=== PATIENT | female | born 1940 | race Caucasian/White ===

== ENCOUNTER 2020-08-03 14:18 | Emergency (ER) | payer MEDICARE, SELFPAY ==
[2020-08-03 14:26] VITALS: BP 146/65; BP 150/74; PULSE 76; PULSE 77; RESP 16; TEMP 36.9; O2SAT 94; O2SAT 96; BMI 24.7
[2020-08-03 14:49] VITALS: BP 146/65; PULSE 77; RESP 16; TEMP 36.9; O2SAT 96
--- NOTE | 2020-08-03 16:38 | ECG_ITS ---
Test Reason : CHOKING Blood Pressure : / mmHG Vent. Rate : 076 BPM Atrial Rate : 076 BPM P-R Int : 184 ms QRS Dur : 112 ms QT Int : 392 ms P-R-T Axes : 019 -30 085 degrees QTc Int : 441 ms Normal sinus rhythm Left axis deviation Left ventricular hypertrophy with repolarization abnormality Abnormal ECG When compared with ECG of 25-FEB-2018 15:30, No significant changes seen Referred By: Alfred Parker Electronically Signed By:Slim Ray
--- NOTE | 2020-08-03 16:38 | XR_ITS ---
EXAMINATION: XR CHEST CLINICAL INFORMATION: Choking. COMPARISON: Chest x-ray 09/25/2019. CT chest 08/20/2018 TECHNIQUE: Frontal portable view of the chest was obtained. 4:49 PM FINDINGS: Trachea is displaced to the right with a mass in the superior left mediastinum consistent with the known enlarged substernal left lobe of thyroid. This is unchanged since prior studies. Heart size is normal. The cardiac and mediastinal contours are normal. There is no acute abnormality. No pulmonary vascular congestion. No focal consolidation, no pleural effusion or pneumothorax. XR/XR chest 1V IMPRESSION: 1. No acute abnormality of the chest. 2. Known large left lobe of thyroid extending substernal
--- NOTE | 2020-08-03 16:40 | ED_ITS ---
HPI - General Adult General Chief complaint: General Medical Stated complaint: CHOKED ON LUNCH,LUNGS CLEAR,COUGH Time Seen by Provider: 08/03/20 16:37 Source: patient Mode of arrival: ambulatory Limitations: no limitations History of Present Illness HPI narrative: Patient with no known history of coronary artery disease history of dysphagia in the past but never had a choking episode history chronic leukemia came here because of choking episode after while eating she was talking on the phone and start coughing after 30 minutes cough she felt better. At this time she is drinking p.o. liquids no chest pain no diaphoresis no abdominal pain few years ago she had endoscopy which showed narrow esophagus but she never had significant dysphagia Onset (ago): hour(s) Related Data Home Medications Medication Instructions Recorded Confirmed Lactobacillus rhamnosus GG 1 cap PO BID 05/23/20 05/23/20 [Culturelle] acetaminophen 500 mg PO Q6H PRN 05/23/20 07/31/20 ascorbic acid (vitamin C) [Vitamin 750 mg PO DAILY 05/23/20 07/31/20 C] calcium 500 mg PO DAILY 05/23/20 07/31/20 cyclosporine modified 1 cap PO DAILY 05/23/20 05/23/20 hydrochlorothiazide 25 mg PO QAM 05/23/20 07/31/20 ibuprofen 400 mg PO TID PRN 05/23/20 05/23/20 losartan 100 mg PO DAILY 05/23/20 07/31/20 metoprolol succinate 25 mg PO DAILY 05/23/20 07/31/20 multivitamin 1 tab PO DAILY 05/23/20 05/23/20 prednisone 10 mg PO DAILY 05/23/20 05/23/20 Previous Rx's Medication Instructions Recorded clotrimazole 1 applic TOPICAL TID #60 g 05/23/20 alprazolam 0.25 mg PO BEDTIME PRN #30 tab 06/30/20 tramadol 50 mg tablet 50 mg PO BID PRN #32 tab MDD 3 07/26/20 times per day Allergies Allergy/AdvReac Type Severity Reaction Status Date / Time Sulfa (Sulfonamide Allergy Intermediate RASH,HAS Verified 07/31/20 10:23 Antibiotics) HAD [SULFA (SULFONAMIDE RECENTLY ANTIBIOTICS)] WITHOUT REACTION Review of Systems Review of Systems: Constitutional : No Weight loss, No Fever, No Chills ENT/Mouth : No sore throat, No Rhinorrhea Eyes: No Eye Pain, No Swelling Cardiovascular : No Chest Pain, no palpitations Respiratory : ++ Cough, No Sputum, no shortness of breath Gastrointestinal : no Nausea, No Vomiting, No Diarrhea, No abdominal Pain, no black stools Genitourinary : No Dysuria, No Urinary Frequency Musculoskeletal : No joint pain, No Myalgias, No Joint Swelling Skin : No Skin Lesions, No rash Neuro : No Weakness, No Numbness, No Dizziness, No Headache Psych : No Anxiety/Panic, No Depression Heme/Lymph: No Bruising, No Lymphadenopathy Endocrine : No Polyuria, No Polydipsia All other systems reviewed and are negative [facility] Past Medical History Medical History Ankle fracture, left Basal cell carcinoma Cancer Goiter Hypertension Knee pain, left Oral mucosal lesion Osteoarthritis Surgical History History of appendectomy History of bilateral knee replacement Social History Social History Alcohol intake: never Smoking Status: Never smoker Second Hand Smoke Exposure: No Use of substances other than those prescribed or required for medical reasons: No Advance Directives: No Advance Directives Information Provided: Yes Physical Exam Vital Signs: Vital Signs: Last Vital Signs Temp 97.9 F 08/03/20 16:46 Pulse 82 08/03/20 16:46 Resp 16 08/03/20 16:46 BP 168/69 H 08/03/20 16:46 Pulse Ox 97 08/03/20 16:46 Body Mass Index 24.7 Appearance: Alert. Oriented X3. No acute distress. Eyes: Pupils equal, round and reactive to light. ENT: Pharynx normal. No stridor Neck: Normal inspection. Neck supple. CVS: Normal heart rate and rhythm. Pulses normal. Respiratory: No respiratory distress. Breath sounds normal. Abdomen: Soft and nontender. Bowel sounds are present, no mass palpable, no CVA tenderness Skin: Skin warm and dry. Normal skin color. Normal skin turgor. Extremities: No lower extremity edema. Neuro: Oriented X 3. No motor deficit. No sensory deficit. Medical Decision Making MDM Narrative Medical decision making narrative: Patient came with choking episode after eating and talking same time chest x-ray negative EKG with not any ischemia waiting for the troponin unlikely cardiac origin as the symptoms started after eating, will discharge her home Lab Data Lab results reviewed: Yes I reviewed the patient's lab results. Result diagrams: 08/03/20 16:53 08/03/20 16:53 Labs: Lab Results 08/03/20 08/03/20 08/03/20 Range/Units 16:53 16:53 16:53 WBC 7.8 (4.8-10.8) X10*3/uL RBC 2.91 L (4.20-5.50) X10*6/uL Hgb 10.5 L (12.0-16.0) g/dl Hct 31.6 L (37-47) % MCV 108.6 H (80-98) fL MCH 36.1 H (27.0-33.0) pg MCHC 33.2 (31.0-35.0) g/dl RDW 13.1 (11.0-16.0) % Plt Count 271 (160-400) X10*3/uL MPV 11.1 (9.4-12.3) fL Immature Gran % (Auto) 0.6 H (0.0-0.4) % Neut % (Auto) 74.7 H (45-73) % Lymph % (Auto) 18.6 L (20-40) % Ashley % (Auto) 5.8 (2-11) % Eos % (Auto) 0.0 (0-4) % Baso % (Auto) 0.3 (0-2) % Lymph # (Auto) 1.4 (1.2-4.9) X10*3/uL Ashley # (Auto) 0.5 (0.1-1.2) X10*3/uL Eos # (Auto) 0.0 (0.0-0.4) X10*3/uL Baso # (Auto) 0.0 (0.0-0.2) X10*3/uL Abs Immat Gran (auto) 0.05 H (0.00-0.03) X10*3/uL Absolute Neuts (auto) 5.8 (2.0-8.3) X10*3/uL Absolute Nucleated RBC 0.000 (0.0-0.012) X10*3/uL Nucleated RBC % (auto) 0.0 (0.0-0.2) /100WBC Sodium 143 (135-145) mmol/L Potassium 4.2 (3.3-5.1) mmol/l Chloride 103 (96-108) mmol/L Carbon Dioxide 31 H (22-29) mmol/L Anion Gap 13 (12-20) BUN 28 H (9-16) mg/dL Creatinine 0.83 (0.5-1.4) mg/dL Estim Creat Clear Calc 45.0 Estimated GFR > 60 Random Glucose 108 (60-115) mg/dL Calcium 9.4 (8.4-10.2) mg/dL Troponin I High Sens 8.8 (<3.5-17.0) ng/L ECG Data Attestation: I personally reviewed and interpreted this ECG as follows: Interpretation: Normal sinus rhythm left axis deviation LVH no acute ST T wave changes impression no acute ischemia Discharge Plan Discharge Clinical Impression: Dysphagia Qualifiers: Dysphagia type: oropharyngeal phase Qualified Code(s): R13.12 - Dysphagia, oropharyngeal phase Patient Disposition: Home, Self-Care Instructions: Dysphagia (ED) Additional Instructions: Has small meals with water/pureed meal. Follow-up with technology applications consultant for further evaluation and care. Report to the ER if any chest pain Prescriptions: No Action alprazolam 0.25 mg Tablet 0.25 mg PO BEDTIME PRN (Reason: Insomnia) Qty: 30 RF: 0 tramadol 50 mg tablet 50 mg PO BID MDD 3 times per day PRN (Reason: severe pain (scale score 7-10)) Qty: 32 RF: 0 clotrimazole 1 % Cream 1 applic TOPICAL TID Qty: 60 RF: 1 ascorbic acid (vitamin C) [Vitamin C] 500 mg Tablet 750 mg PO DAILY RF: 0 cyclosporine modified 100 mg capsule 1 cap PO DAILY RF: 0 multivitamin Tablet 1 tab PO DAILY RF: 0 prednisone 10 mg Tablet 10 mg PO DAILY RF: 0 ibuprofen 400 mg Tablet 400 mg PO TID PRN (Reason: Pain) RF: 0 hydrochlorothiazide 25 mg Tablet 25 mg PO QAM RF: 0 metoprolol succinate 25 mg Tablet Extended Release 24 Hr 25 mg PO DAILY RF: 0 Culturelle 10 billion cell Capsule 1 cap PO BID RF: 0 losartan 100 mg Tablet 100 mg PO DAILY RF: 0 acetaminophen 500 mg Capsule 500 mg PO Q6H PRN (Reason: Pain) RF: 0 calcium 500 mg Tablet 500 mg PO DAILY RF: 0 Referrals: Raegan Greenwood MD [Physician] - 1 week
[2020-08-03 16:46] VITALS: BP 168/69; PULSE 82; RESP 16; TEMP 36.6; O2SAT 97
[2020-08-03 17:01] LABS: Basophils Percent Auto 0.3 % (0-2); Hematocrit 31.6 % (37-47); Hemoglobin 10.5 g/dl (12.0-16.0); Imm Gran Abs Auto 0.05 X10*3/uL (0.00-0.03); Imm Gran Pct Auto 0.6 % (0.0-0.4); Lymphocytes Absolute Auto 1.4 X10*3/uL (1.2-4.9); Lymphocytes Percent Auto 18.6 % (20-40); Mean Corpuscular HGB Conc 33.2 g/dl (31.0-35.0); Mean Corpuscular Hemoglobin 36.1 pg (27.0-33.0); Mean Corpuscular Volume 108.6 fL (80-98); Mean Platelet Volume 11.1 fL (9.4-12.3); Monocytes Absolute Auto 0.5 X10*3/uL (0.1-1.2); Monocytes Percent Auto 5.8 % (2-11); Neutrophils Absolute Auto 5.8 X10*3/uL (2.0-8.3); Neutrophils Percent Auto 74.7 % (45-73); Platelet Count 271 X10*3/uL (160-400); Red Blood Count 2.91 X10*6/uL (4.20-5.50); Red Cell Distribution Width 13.1 % (11.0-16.0); White Blood Count 7.8 X10*3/uL (4.8-10.8)
[2020-08-03 17:02] LABS: MANUAL DIFF FLAG NO
[2020-08-03 17:23] LABS: Anion Gap 13 (12-20); Blood Urea Nitrogen 28 mg/dL (9-16); Calcium 9.4 mg/dL (8.4-10.2); Carbon Dioxide 31 mmol/L (22-29); Chloride 103 mmol/L (96-108); Estimated Glomerular Filt Rate > 60; Glucose Random 108 mg/dL (60-115); Potassium 4.2 mmol/l (3.3-5.1); Sodium 143 mmol/L (135-145)
[2020-08-03 17:33] LABS: Troponin-I High Sensitivity 8.8 ng/L (<3.5-17.0)
== END 2020-08-03 18:00 | disposition home or self-care (01) ==
PROVIDERS: Emergency Provider Internal Medicine; PCP Internal Medicine
DX: R13.12 Dysphagia, oropharyngeal phase (principal); I10 Essential (primary) hypertension
CPT/HCPCS: 36415; 71045; 80048; 84484; 85025; 93005; 99283; 99284

== ENCOUNTER 2020-08-04 06:10 | Day surgery (SDC) | payer MEDICARE, SELFPAY ==
[2020-07-31 10:20] VITALS: BMI 18.7
[2020-08-03 10:25] VITALS: BMI 18.7
--- NOTE | 2020-08-03 11:49 | HO.ANESPROP2 ---
Documented by User: Martina Freitas 08/03/20 11:51 HPI - Anesthesia Eval Consult details Narrative: 80yo F for Genicular Nerve Stimulation Implant s/p periph nerve stim trial with MAC 02/2020 [facility] Past Medical History Medical History Ankle fracture, left Basal cell carcinoma Cancer Goiter Hypertension Knee pain, left Oral mucosal lesion Osteoarthritis Surgical History Surgical History History of appendectomy History of bilateral knee replacement Social History Social History Alcohol intake: never Smoking Status: Never smoker Second Hand Smoke Exposure: No Use of substances other than those prescribed or required for medical reasons: No Advance Directives: No Advance Directives Information Provided: No Advance Directives on File: No Meds Allergies Allergy/AdvReac Type Severity Reaction Status Date / Time Sulfa (Sulfonamide Allergy Intermediate RASH,HAS Verified 07/31/20 10:23 Antibiotics) HAD [SULFA (SULFONAMIDE RECENTLY ANTIBIOTICS)] WITHOUT REACTION Home Medications Medication Instructions Recorded Confirmed Type Lactobacillus rhamnosus GG 1 cap PO BID 05/23/20 05/23/20 History [Culturelle] acetaminophen 500 mg PO Q6H PRN 05/23/20 07/31/20 History ascorbic acid (vitamin C) [Vitamin 750 mg PO DAILY 05/23/20 07/31/20 History C] calcium 500 mg PO DAILY 05/23/20 07/31/20 History cyclosporine modified 1 cap PO DAILY 05/23/20 05/23/20 History hydrochlorothiazide 25 mg PO QAM 05/23/20 07/31/20 History ibuprofen 400 mg PO TID PRN 05/23/20 05/23/20 History losartan 100 mg PO DAILY 05/23/20 07/31/20 History metoprolol succinate 25 mg PO DAILY 05/23/20 07/31/20 History multivitamin 1 tab PO DAILY 05/23/20 05/23/20 History prednisone 10 mg PO DAILY 05/23/20 05/23/20 History Exam Exam Date and Time: August 03, 2020 1149 Height,Weight and Vital Signs: Height 5 ft 6 in Weight 52.617 kg Pertinent Lab Results Pertinent Lab Results: Laboratory Tests 05/23/20 05/23/20 13:09 13:09 WBC 6.0 Hgb 10.7 L Hct 31.6 L Plt Count 258 Sodium 141 Potassium 3.9 Chloride 103 Carbon Dioxide 29 BUN 38 H Creatinine 0.80 Assessment and Plan Assessment Anesthesia Assessment: Chart Reviewed Documented by User: Alexus Meadows 08/04/20 07:57 [facility] Past Medical History Medical History Ankle fracture, left Basal cell carcinoma Cancer Goiter Hypertension Knee pain, left Oral mucosal lesion Osteoarthritis Surgical History Surgical History History of appendectomy History of bilateral knee replacement Social History Social History Alcohol intake: never Smoking Status: Never smoker Second Hand Smoke Exposure: No Use of substances other than those prescribed or required for medical reasons: No Advance Directives: No Advance Directives Information Provided: No Advance Directives on File: No Meds Allergies Allergy/AdvReac Type Severity Reaction Status Date / Time Sulfa (Sulfonamide Allergy Intermediate RASH,HAS Verified 07/31/20 10:23 Antibiotics) HAD [SULFA (SULFONAMIDE RECENTLY ANTIBIOTICS)] WITHOUT REACTION Home Medications Medication Instructions Recorded Confirmed Type Lactobacillus rhamnosus GG 1 cap PO BID 05/23/20 05/23/20 History [Culturelle] acetaminophen 500 mg PO Q6H PRN 05/23/20 07/31/20 History ascorbic acid (vitamin C) [Vitamin 750 mg PO DAILY 05/23/20 07/31/20 History C] calcium 500 mg PO DAILY 05/23/20 07/31/20 History cyclosporine modified 1 cap PO DAILY 05/23/20 05/23/20 History hydrochlorothiazide 25 mg PO QAM 05/23/20 07/31/20 History ibuprofen 400 mg PO TID PRN 05/23/20 05/23/20 History losartan 100 mg PO DAILY 05/23/20 07/31/20 History metoprolol succinate 25 mg PO DAILY 05/23/20 07/31/20 History multivitamin 1 tab PO DAILY 05/23/20 05/23/20 History prednisone 10 mg PO DAILY 05/23/20 05/23/20 History Exam Airway Mallampati Class: II TM Dist: >3cm Neck ROM: Limited Loose/Missing/Broken Teeth: No Heart: RRR Lungs: CTA Assessment and Plan Assessment Anesthesia Assessment: Anesthesia Plan Discussed and Chart Reviewed Final Anesthetic Review NPO: Yes ASA Class: II Final Preanesthetic Review: Meds/Allgs Chart Reviewed, Consent Obtained/Reviewed and Anes Risks/Benef Reviewed Patient Risk: Low Procedure Risk: Low Anesthetic Plan Anesthetic Plan: MAC: Disposition: Standard PACU
[2020-08-04 06:42] VITALS: BP 135/53; PULSE 73; RESP 16; TEMP 37.6; O2SAT 95
[2020-08-04] MEDS: Lactated Ringers 1,000 ML 100 ML IVCONT (06:54)
--- NOTE | 2020-08-04 07:06 | FL_ITS ---
EXAMINATION: XR FLUOROSCOPY WITH IMAGES CLINICAL INFORMATION: Geniculate nerve stimulation implant COMPARISON: None. TECHNIQUE: Fluoroscopy performed by Dr. Joiner. Fluoroscopy time: 0.6 minutes DAP: 0.8 mGycm2 Images: 3 FINDINGS: Fluoroscopy guidance for left knee geniculate nerve stimulation. FL/FL guidance in OR IMPRESSION: Fluoroscopy guidance for left knee geniculate nerve stimulation.
--- NOTE | 2020-08-04 07:20 | P.HPSUR_ITS ---
Pre-Procedural Eval Section A The patient is an INPATIENT: No The History & Physical has been completed within 30 days and I have reviewed it.: Yes Section B Chief Complaint: Chronic Pain Syndrome,Status Post TKR Details of Present Illness: knee pain Relevant Family History (Specify if Yes): No Relevant Social History: None Present Medications: see Short Stay Collaborative assessment Medical History: No relevant PMH History of Previous Operations: Relevant previous surgery/procedure and date(s) (s/p TKR) Allergies: Allergies Allergy/AdvReac Type Severity Reaction Status Date / Time Sulfa (Sulfonamide Allergy Intermediate RASH,HAS Verified 07/31/20 10:23 Antibiotics) HAD [SULFA (SULFONAMIDE RECENTLY ANTIBIOTICS)] WITHOUT REACTION Review of Systems Sugical H&P ROS: Negative: Constitution, Cardiovascular, Respiratory, Neurological, Psychiatric, Hem-Onc, Allergic/Immunologic, Gastrointestinal, Genitourinary, Musculoskeletal, Integumentary, Endocrine and Eye s/Ears/Nose/Throat Exam Surgical H&P Exam: Normal: HEENT, Normal: Heart, Normal: Lungs, Normal: Extremities, Normal: Abdomen, Normal: Skin and Normal: Neurological Plan Diagnosis/Plan: Unchanged I have reviewed the history and physical and performed a pertinent physical examination on my patient. No changes have occurred unless specified.
[2020-08-04 09:15] VITALS: BP 155/70; PULSE 79; RESP 12; TEMP 37.4; O2SAT 98
--- NOTE | 2020-08-04 09:21 | PM.OP ---
Brief Operative Note Date of Service: 08/04/20 Pre-op diagnosis: left knee pain, s/p TKR left, left knee osteoarthritis. Post-op diagnosis: same Procedure: implant Stimwave infrapatellar saphenous left peripheral nerve stimulator. Implants: stimwave stimulation wire. Surgeon: Fausto Joiner MD Anesthesia: MAC Estimated blood loss (mL): 15 Pathology: none sent Condition: stable Disposition: PACU
[2020-08-04 09:29] VITALS: BP 160/74; PULSE 79; RESP 16; O2SAT 96
[2020-08-04 09:45] VITALS: BP 157/73; PULSE 76; RESP 16; O2SAT 96
--- NOTE | 2020-08-04 10:18 | P.OP_ITS ---
Operative Note Operative Note Date of Service: 08/04/20 Narrative: Name of the procedure: Implantation of peripheral nerve stimulator infrapatellar saphenous position left lower extremity. Indication status post total knee replacement, chronic intractable left knee pain. The patient was identified and informed consent was obtained patient's left lower extremity was marked and patient was taking to the operating room and positioned supine on the operating table. [employer] monitors were applied and patient was sedated. Patient received 2 g of cefazolin approximately 30 minutes before the procedure. Time-out was performed delineating correct site side a and name in the of the patient. Also risks of fires were discussed in antibiotic administered was mentioned. Local anesthetics were mentioned. Left lower extremity was prepped with ChloraPrep and draped with the extremity draped using 1 curran in addition to fluoroscopy target nerve was identified and in try site tunneling path and pocket are identified and marked. System components were removed from the train placed on the sterile field. The distal tip of the electrode a raise placed on the skin at the target nerve and khoa on the skin is made with a sterile skin marker at the location on the 1st marker band to identify the skin try side. Local anesthetic is infiltrated subcutaneously at the introducer and try side. An initial introducer past is also identified with local anesthetic. Eleven blade scalpel was used to make small incision to facilitate the skin and try of the 13 gauge blunt tipped introducer. The introducers in then advanced to the target location using tiny amounts of local anesthetic infiltrated is needed for patient comfort avoiding as much as possible the use of local anesthetic at the nerve itself. The progress of the introducer can be followed by landmark and fluoroscopy and ultrasound. Once the introducer is in the position the introducer stylet is removed and the 4 contact electrode array with tines is advanced to the target the nerve with position confirmed by fluoroscopy on lateral and AP view. The steering stylet is removed and replaced with copper stimulation wire. The consumer relations specialist wire is mated to the electrode array by advancing the consumer relations specialist until it reaches the distal end of the electrode array with approximately 2 cm extending from the end of proximal portion of the electrode array. In an area distinct from the initial extra later insertion site approximately 10 cm from electrode array incision location a location acceptable for subcutaneous pocket to internalize the consumer relations specialist is identified. Local anesthetic is injected subcutaneously through the pocket side. Once the pocket site is anesthetize 11 blade scalpel used to incise the skin and subcutaneous tissue to create 1.5 in incision. Using blunt dissection subcutaneous pocket large enough to fit consumer relations specialist is created. Electrocautery is used to obtain hemostasis. After hemostasis is obtained original introducer stylet was advanced to as it tunnel conduit from the consumer relations specialist pocket location to the original needle electrode array in try side. The proximal says tip of the electrode array and consumer relations specialist are then advanced a retrograde through the introducer into the created subcutaneous consumer relations specialist pocket. After the Touhy needles were removed knots are tied and these stimulator proximal to the 2nd marking band in order to avoid spent entrance of fluid or tissue into the lumen and for the permanent meeting of the electrode array and consumer relations specialist. The remaining consumer relations specialist is coiled into 3 cm diameter well secured with 2.0 silk sutures intact securely into subcutaneous consumer relations specialist pocket. The [place] use sutured to the fascia. Once the devices sutured securely to the subcutaneous consumer relations specialist pocket the pocket is irrigated and hemostasis is confirmed and then the deeper tissues of the incisions are closed with subcutaneous 2.0 Vicryl sutures and skin closed with interrupted 2.0 silk sutures. The antenna in its sterile bag is brought back to the field to confirm stimulation. The site is covered with Bioclusive dressing and wrapped with the slight pressure wrap. Bacitracin ointment was applied to the sutures lines.
--- NOTE | 2020-08-04 13:51 | HO.POSTANES ---
Post Anesthesia Evaluation Post Anesthesia Evaluation Vital Signs: Vital Signs Temp Pulse Resp BP Pulse Ox 08/04/20 09:45 76 16 157/73 H 96 08/04/20 09:29 79 16 160/74 H 96 08/04/20 09:15 99.3 F 79 12 155/70 H 98 08/04/20 06:42 99.7 F 73 16 135/53 L 95 Anesthesia: Monitored Mental Status: Awake Pain Control: Satisfactory Nausea/Vomiting: None Hydration: Adequate Anesthesia-Related Issues: No Anes. Related Issues
== END 2020-08-04 11:02 | disposition home or self-care (01) ==
PROVIDERS: PCP Internal Medicine; Visit Provider Anesthesiology
PROC: (CPT 64575; principal; 2020-08-04 07:30)
DX: G89.4 Chronic pain syndrome (principal); Z96.652 Presence of left artificial knee joint; M17.12 Unilateral primary osteoarthritis, left knee; Z88.2 Allergy status to sulfonamides; I10 Essential (primary) hypertension
CPT/HCPCS: 64575; 64590; C1816; J0690; J1100; J2250; J2405; J3010; J3370

== ENCOUNTER → 2020-08-10 11:04 | Outpatient (BNVA) | payer MEDICARE, SELFPAY | PROVIDERS: PCP Internal Medicine; Referring Provider Internal Medicine; Visit Provider Anesthesiology | DX: M17.12 Unilateral primary osteoarthritis, left knee (principal); C91.Z0 Other lymphoid leukemia not having achieved remission | CPT/HCPCS: 99212 ==

== ENCOUNTER → 2020-08-17 10:37 | Outpatient (BNVA) | payer MEDICARE, SELFPAY | PROVIDERS: PCP Internal Medicine; Referring Provider Internal Medicine; Visit Provider Anesthesiology | DX: M17.12 Unilateral primary osteoarthritis, left knee (principal); C91.Z0 Other lymphoid leukemia not having achieved remission | CPT/HCPCS: 99212 ==

== ENCOUNTER 2021-02-12 11:00 | Outpatient (RCR) | payer MEDICARE, SELFPAY ==
[2020-05-23 13:16] LABS: MANUAL DIFF FLAG NO
[2020-05-23 13:18] VITALS: BP 189/84; PULSE 76; RESP 18; TEMP 36.5; O2SAT 95
[2020-05-23 13:23] LABS: Basophils Percent Auto 0.3 % (0-2); Hematocrit 31.6 % (37-47); Hemoglobin 10.7 g/dl (12.0-16.0); Imm Gran Abs Auto 0.08 X10*3/uL (0.00-0.03); Imm Gran Pct Auto 1.3 % (0.0-0.4); Lymphocytes Absolute Auto 1.1 X10*3/uL (1.2-4.9); Lymphocytes Percent Auto 18.6 % (20-40); Mean Corpuscular HGB Conc 33.9 g/dl (31.0-35.0); Mean Corpuscular Hemoglobin 36.5 pg (27.0-33.0); Mean Corpuscular Volume 107.8 fL (80-98); Mean Platelet Volume 11.6 fL (9.4-12.3); Monocytes Absolute Auto 0.3 X10*3/uL (0.1-1.2); Monocytes Percent Auto 4.4 % (2-11); Neutrophils Absolute Auto 4.5 X10*3/uL (2.0-8.3); Neutrophils Percent Auto 75.4 % (45-73); Platelet Count 258 X10*3/uL (160-400); Red Blood Count 2.93 X10*6/uL (4.20-5.50); Red Cell Distribution Width 12.1 % (11.0-16.0)
[2020-05-23 13:27] VITALS: BMI 26.4
[2020-05-23 13:43] LABS: Alanine Aminotransferase 40 U/L (0-31); Albumin Level 4.2 g/dL (3.5-5.0); Alkaline Phosphatase 70 U/L (39-117); Anion Gap 13 (12-20); Aspartate Amino Transferase 27 U/L (5-31); Bilirubin Total 0.7 mg/dL (0.0-1.0); Blood Urea Nitrogen 38 mg/dL (9-16); Calcium 9.3 mg/dL (8.4-10.2); Carbon Dioxide 29 mmol/L (22-29); Chloride 103 mmol/L (96-108); Estimated Glomerular Filt Rate > 60; Glucose Random 134 mg/dL (60-115); Potassium 3.9 mmol/l (3.3-5.1); Sodium 141 mmol/L (135-145)
[2020-05-23 14:12] VITALS: BP 172/72
--- NOTE | 2020-05-23 15:26 | PM.HEMONCPN ---
Medical Summary - Medical Summary Chief complaint: Follow-up Medical Summary: DIAGNOSIS: 1. T-Cell Large granular Lymphocytic Lymphoma. Normocytic to microcytic anemia. Managed by Dr. Stack for myelodysplastic syndrome until June 2018. Diagnosed with macrocytic anemia in 2016. Bone marrow biopsy performed May 2017 showed active trilineage hematopoiesis with a few hypolobated megakaryocytes raising possibility of early myelodysplastic syndrome. Flow cytometry showed no evidence of clonal lymphoid expansion. Chromosome analysis revealed 46XX. 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 Serum erythropoietin level in May 2018 was 625.8. Ferritin 1385 in June 2018. Repeat Bone marrow biopsy performed 07/30/18 showed mildly hypercellular, myeloid dominant marrow with reduced erythroid precursors and dyspoietic maturation in megakaryocytes, increased iron stores. Probable myelodysplastic syndrome. FISH panel negative for deletions of IQ, 7Q and 20 q. Negative for monosomy of chromosome 5 and 7 and trisomy of chromosome 7. Normal pattern of hybridization. Flow cytometry and cytogenetics Showed no atypical flow cytometric findings, and normal female karyotype 46XX. Flow cytometry for PNH was negative. 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 This compresses trachea significantly to right and compresses left brachiocephalic vein and SVC. TSH, free T4 normal. 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 Multiple lymphoid aggregates composed mainly of T cells with inverted CD4 :CD8 ratio by flow cytometry. Diagnostic consideration is thus T-large granular lymphocytic leukemia. Morphologic findings do not suggest myelodysplastic syndrome. She was initially tried on Cytoxan with prednisone about 2-3 months, this did not help. She was on methotrexate 10 mg per meter square weekly from September 2018 to 11/19/2018. She did not tolerate the medication, developed significant diarrhea. She did achieve benefit for 3-4 months with it. THERAPY: 1. CYTOXAN. 2. Switched to MTX, September 2018 3, cyclosporin June 2019 Interval History Interval history: Patient is here in follow-up. She is doing fairly well overall. She continues to have pain in her left knee which limits her ambulation. She has gained some weight, her appetite is very good. Her blood pressure was noted to be high today but she denied any symptoms such as headache, chest pain, dizziness or shortness of breath. She is taking cyclosporin 1 tablet daily. She is still on prednisone 15 mg daily. Her visiting nurse noticed red spot on her right buttock cheek. It is not irritated, painful, slightly itchy ever since she came to know if that it was there. She denies any fever, chills, or recent infections. Review of Systems - Constitutional Reports as per HPI, Reports no additional constitutional complaints - Cardiovascular Reports no additional cardiovascular complaints - Respiratory Reports no additional respiratory complaints - Gastrointestinal Reports no additional gastrointestinal complaints PMFSH Medical History: Medical History (Last Updated 05/23/20 @ 15:30 by Sharee Bowles MD) Ankle fracture, left Basal cell carcinoma Goiter Hypertension Oral mucosal lesion Osteoarthritis Surgical History: Surgical History (Last Updated 05/23/20 @ 15:30 by Sharee Bowles MD) History of appendectomy History of bilateral knee replacement Smoking status: Never smoker Alcohol intake frequency: does not drink Previous occupational history: Work for [employer] Screenings - ECOG Performance Status ECOG Performance Status: 2 Home Medications and Allergies Home Medications Medication Instructions Recorded Confirmed Type Lactobacillus rhamnosus GG 1 cap PO BID 05/23/20 05/23/20 History [Culturelle] acetaminophen 500 mg PO Q6H PRN 05/23/20 05/23/20 History alprazolam 1 tab PO BEDTIME 05/23/20 05/23/20 History ascorbic acid (vitamin C) [Vitamin 750 mg PO DAILY 05/23/20 05/23/20 History C] calcium 500 mg PO DAILY 05/23/20 05/23/20 History cyclosporine modified 1 cap PO DAILY 05/23/20 05/23/20 History hydrochlorothiazide 25 mg PO QAM 05/23/20 05/23/20 History ibuprofen 400 mg PO TID PRN 05/23/20 05/23/20 History losartan 100 mg PO DAILY 05/23/20 05/23/20 History metoprolol succinate 25 mg PO DAILY 05/23/20 05/23/20 History multivitamin 1 tab PO DAILY 05/23/20 05/23/20 History oxycodone 5 mg PO Q4H PRN 05/23/20 05/23/20 History prednisone 10 mg PO DAILY 05/23/20 05/23/20 History tramadol 50 mg PO QID PRN 05/23/20 05/23/20 History Allergies Allergy/AdvReac Type Severity Reaction Status Date / Time Sulfa (Sulfonamide Allergy Intermediate RASH,HAS Unverified 04/13/20 16:39 Antibiotics) HAD [SULFA (SULFONAMIDE RECENTLY ANTIBIOTICS)] WITHOUT REACTION sulfa Allergy Unknown Uncoded 03/30/20 00:00 Exam Vital signs: Vital Signs Temp 97.7 F 05/23/20 13:18 Pulse 76 05/23/20 13:18 Resp 18 05/23/20 13:18 BP 172/72 H 05/23/20 14:12 Pulse Ox 95 05/23/20 13:18 Intake & Output 05/22/20 05/23/20 05/23/20 18:59 06:59 18:59 Other: Weight 65.5 kg Weight 65.5 kg Body Mass Index 26.4 - Constitutional Present: no acute distress - Routine HEENT Exam Head: Present: normal inspection Eye: Present: EOMI - Routine Neck Exam Absent: lymphadenopathy - Routine Respiratory Exam Present: CTAB - Routine Cardiovascular Exam Cardiovascular: Present: RRR, S1, S2 - Routine Abdominal Exam Present: normal bowel sounds, soft Data - Labs CBC & Chem 7: 05/23/20 13:09 05/23/20 13:09 Labs: Laboratory Results - last 24 hr 05/23/20 05/23/20 13:09 13:09 WBC 6.0 RBC 2.93 L Hgb 10.7 L Hct 31.6 L MCV 107.8 H MCH 36.5 H MCHC 33.9 RDW 12.1 Plt Count 258 MPV 11.6 Immature Gran % (Auto) 1.3 H Neut % (Auto) 75.4 H Lymph % (Auto) 18.6 L Walker % (Auto) 4.4 Eos % (Auto) 0.0 Baso % (Auto) 0.3 Lymph # (Auto) 1.1 L Walker # (Auto) 0.3 Eos # (Auto) 0.0 Baso # (Auto) 0.0 Abs Immat Gran (auto) 0.08 H Absolute Neuts (auto) 4.5 Absolute Nucleated RBC 0.000 Nucleated RBC % (auto) 0.0 Sodium 141 Potassium 3.9 Chloride 103 Carbon Dioxide 29 Anion Gap 13 BUN 38 H Creatinine 0.80 Estim Creat Clear Calc 49.0 Estimated GFR > 60 Random Glucose 134 H Calcium 9.3 Total Bilirubin 0.7 AST 27 ALT 40 H Alkaline Phosphatase 70 Total Protein 6.0 L Albumin 4.2 Progress Note: A/P (1) Large granular lymphocytic leukemia Status: Chronic Assessment and plan: 1. This is an 79-year-old woman with T-cell large granular lymphocytic leukemia diagnosed in August 2018. Peripheral blood flow cytometry for T-cell receptor gene rearrangement was positive.(08/31/18) On cyclosporin 5 mg/kilo (200mg) administered b.i.d. since June 2019. Goal therapeutic level would be 200-400 NG/ML. She is now on prednisone 15 mg every day. Dose of cyclosporin has been decreased to 200 mg once a day. She has not required a blood transfusion since early July. Her blood counts, anemia has improved. I have asked her to cut back prednisone to 10 mg once a day. 2. Tongue lesion. This has been present for many years, biopsies were negative for malignancy. She responded to steroids, prednisone. 3. Elevated blood pressure readings. I have asked her to follow up with her PCP. This could also be related to chronic prednisone use and weight gain. 4. Tinea corporis on the right buttock cheek. Cotrimazole 1% cream b.i.d. has been prescribed. Follow-up in 3 months. - Time Spent With Patient Total time spent is greater than 50% in coordination of care (as documented) at patient's floor/unit and/or counseling patient: 25 - 35 minutes
[2020-08-23 14:06] LABS: MANUAL DIFF FLAG NO
[2020-08-23 14:14] LABS: Basophils Percent Auto 0.5 % (0-2); Eosinophils Percent Auto 0.5 % (0-4); Hematocrit 31.3 % (37-47); Hemoglobin 10.5 g/dl (12.0-16.0); Imm Gran Abs Auto 0.03 X10*3/uL (0.00-0.03); Imm Gran Pct Auto 0.4 % (0.0-0.4); Lymphocytes Absolute Auto 2.8 X10*3/uL (1.2-4.9); Lymphocytes Percent Auto 36.7 % (20-40); Mean Corpuscular HGB Conc 33.5 g/dl (31.0-35.0); Mean Corpuscular Hemoglobin 36.6 pg (27.0-33.0); Mean Corpuscular Volume 109.1 fL (80-98); Mean Platelet Volume 11.4 fL (9.4-12.3); Monocytes Absolute Auto 0.6 X10*3/uL (0.1-1.2); Monocytes Percent Auto 8.4 % (2-11); Neutrophils Percent Auto 53.5 % (45-73); Platelet Count 260 X10*3/uL (160-400); Red Blood Count 2.87 X10*6/uL (4.20-5.50); Red Cell Distribution Width 12.3 % (11.0-16.0); White Blood Count 7.5 X10*3/uL (4.8-10.8)
--- NOTE | 2020-08-23 14:30 | P.PNHO_ITS ---
Medical Summary - Medical Summary Date of Service: 08/23/20 Chief complaint: Follow up Medical Summary: DIAGNOSIS: 1. T-Cell Large granular Lymphocytic Lymphoma. Normocytic to microcytic anemia. Managed by Dr. Stack for myelodysplastic syndrome until June 2018. Diagnosed with macrocytic anemia in 2016. Bone marrow biopsy performed May 2017 showed active trilineage hematopoiesis with a few hypolobated megakaryocytes raising possibility of early myelodysplastic syndrome. Flow cytometry showed no evidence of clonal lymphoid expansion. Chromosome analysis revealed 46XX. 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 Serum erythropoietin level in May 2018 was 625.8. Ferritin 1385 in June 2018. Repeat Bone marrow biopsy performed 07/30/18 showed mildly hypercellular, myeloid dominant marrow with reduced erythroid precursors and dyspoietic maturation in megakaryocytes, increased iron stores. Probable myelodysplastic syndrome. FISH panel negative for deletions of IQ, 7Q and 20 q. Negative for monosomy of chromosome 5 and 7 and trisomy of chromosome 7. Normal pattern of hybridization. Flow cytometry and cytogenetics Showed no atypical flow cytometric findings, and normal female karyotype 46XX. Flow cytometry for PNH was negative. 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 This compresses trachea significantly to right and compresses left brachiocephalic vein and SVC. TSH, free T4 normal. 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 Multiple lymphoid aggregates composed mainly of T cells with inverted CD4 :CD8 ratio by flow cytometry. Diagnostic consideration is thus T-large granular lymphocytic leukemia. Morphologic findings do not suggest myelodysplastic syndrome. She was initially tried on Cytoxan with prednisone about 2-3 months, this did not help. She was on methotrexate 10 mg per meter square weekly from September 2018 to 11/19/2018. She did not tolerate the medication, developed significant diarrhea. She did achieve benefit for 3-4 months with it. THERAPY: 1. CYTOXAN. 2. Switched to MTX, September 2018 3, cyclosporin June 2019 Interval History Interval history: Patient is here in follow-up. She is doing okay but has chronic left knee pain. Unfortunately she has had several operations through the pain clinic but none of this has helped. She does not have any further appointments at the pain clinic. She is requesting pain medication as she has not seen her PCP in several months. She is in the process of getting a new physician. She was on ibuprofen previously which cause some stomach irritation and did not help much. She was on tramadol and that did not help either. She briefly was on oxycodone and that helped, she would like a refill on this medication. She denies fever, chills, nausea, chest pain or shortness of breath. No abdominal discomfort or reflux symptoms. No hematochezia or melena. She remai ns on 10 mg prednisone and cyclosporin as prescribed. Review of Systems - Constitutional Reports as per HPI, Reports no additional constitutional complaints - Cardiovascular Reports no additional cardiovascular complaints - Respiratory Reports no additional respiratory complaints - Gastrointestinal Reports no additional gastrointestinal complaints - Integumentary/Breasts Skin/Breast: Reports no additional skin complaints - Neurologic Reports no additional neurologic complaints [facility] Medical History: Medical History (Last Updated 08/10/20 @ 12:00 by Fausto Joiner MD) Ankle fracture, left Basal cell carcinoma Cancer Goiter Hypertension Knee pain, left Oral mucosal lesion Osteoarthritis Osteoarthritis of left knee Surgical History: Surgical History (Last Reviewed 08/04/20 @ 07:31 by Alexus Meadows) History of appendectomy History of bilateral knee replacement Social History: Social History (Last Reviewed 08/04/20 @ 07:31 by Alexus Meadows) Alcohol History: Alcohol intake: never Alcohol History Details: Alcohol intake frequency: does not drink Tobacco History: Smoking Status: Never smoker Second Hand Smoke Exposure: No Smoking status: Never smoker Home Medications and Allergies Home Medications Medication Instructions Recorded Confirmed Type Lactobacillus rhamnosus GG 1 cap PO BID 05/23/20 08/23/20 History [Culturelle] acetaminophen 500 mg PO Q6H PRN 05/23/20 08/23/20 History ascorbic acid (vitamin C) [Vitamin 750 mg PO DAILY 05/23/20 08/23/20 History C] calcium 500 mg PO DAILY 05/23/20 08/23/20 History cyclosporine modified 1 cap PO DAILY 05/23/20 08/23/20 History hydrochlorothiazide 25 mg PO QAM 05/23/20 08/23/20 History ibuprofen 400 mg PO TID PRN 05/23/20 08/23/20 History losartan 100 mg PO DAILY 05/23/20 08/23/20 History metoprolol succinate 25 mg PO DAILY 05/23/20 08/23/20 History multivitamin 1 tab PO DAILY 05/23/20 08/23/20 History prednisone 10 mg PO DAILY 05/23/20 08/23/20 History amlodipine 1 tab PO DAILY 08/23/20 08/23/20 History Allergies Allergy/AdvReac Type Severity Reaction Status Date / Time Sulfa (Sulfonamide Allergy Intermediate RASH,HAS Verified 07/31/20 10:23 Antibiotics) HAD [SULFA (SULFONAMIDE RECENTLY ANTIBIOTICS)] WITHOUT REACTION Exam Vital signs: Vital Signs Temp 97.7 F 05/23/20 13:18 Pulse 76 05/23/20 13:18 Resp 18 05/23/20 13:18 BP 172/72 H 05/23/20 14:12 Pulse Ox 95 05/23/20 13:18 Weight 65.5 kg Body Mass Index 26.4 - Constitutional Present: no acute distress - Routine HEENT Exam Head: Present: normal inspection - Routine Neck Exam Absent: lymphadenopathy - Routine Respiratory Exam Present: CTAB - Routine Cardiovascular Exam Cardiovascular: Present: RRR, S1, S2 - Routine Abdominal Exam Present: normal bowel sounds, soft Data - Labs CBC & Chem 7: 08/23/20 14:00 08/23/20 14:00 Labs: 05/23/20 13:09 Complete Blood Count Auto Diff Routine Comprehensive Met. Panel Routine 08/23/20 14:00 Complete Blood Count Auto Diff Routine Laboratory Last Values WBC 7.5 X10*3/uL (4.8-10.8) 08/23/20 14:00 RBC 2.87 X10*6/uL (4.20-5.50) L 08/23/20 14:00 Hgb 10.5 g/dl (12.0-16.0) L 08/23/20 14:00 Hct 31.3 % (37-47) L 08/23/20 14:00 MCV 109.1 fL (80-98) H 08/23/20 14:00 MCH 36.6 pg (27.0-33.0) H 08/23/20 14:00 MCHC 33.5 g/dl (31.0-35.0) 08/23/20 14:00 RDW 12.3 % (11.0-16.0) 08/23/20 14:00 Plt Count 260 X10*3/uL (160-400) 08/23/20 14:00 MPV 11.4 fL (9.4-12.3) 08/23/20 14:00 Immature Gran % (Auto) 0.4 % (0.0-0.4) 08/23/20 14:00 Neut % (Auto) 53.5 % (45-73) 08/23/20 14:00 Lymph % (Auto) 36.7 % (20-40) 08/23/20 14:00 [place] % (Auto) 8.4 % (2-11) 08/23/20 14:00 Eos % (Auto) 0.5 % (0-4) 08/23/20 14:00 Baso % (Auto) 0.5 % (0-2) 08/23/20 14:00 Lymph # (Auto) 2.8 X10*3/uL (1.2-4.9) 08/23/20 14:00 [place] # (Auto) 0.6 X10*3/uL (0.1-1.2) 08/23/20 14:00 Eos # (Auto) 0.0 X10*3/uL (0.0-0.4) 08/23/20 14:00 Baso # (Auto) 0.0 X10*3/uL (0.0-0.2) 08/23/20 14:00 Abs Immat Gran (auto) 0.03 X10*3/uL (0.00-0.03) 08/23/20 14:00 Absolute Neuts (auto) 4.0 X10*3/uL (2.0-8.3) 08/23/20 14:00 Absolute Nucleated RBC 0.000 X10*3/uL (0.0-0.012) 08/23/20 14:00 Nucleated RBC % (auto) 0.0 /100WBC (0.0-0.2) 08/23/20 14:00 Sodium 141 mmol/L (135-145) 05/23/20 13:09 Potassium 3.9 mmol/l (3.3-5.1) 05/23/20 13:09 Chloride 103 mmol/L (96-108) 05/23/20 13:09 Carbon Dioxide 29 mmol/L (22-29) 05/23/20 13:09 Anion Gap 13 (12-20) 05/23/20 13:09 BUN 38 mg/dL (9-16) H 05/23/20 13:09 Creatinine 0.80 mg/dL (0.5-1.4) 05/23/20 13:09 Estim Creat Clear Calc 49.0 05/23/20 13:09 Estimated GFR > 60 05/23/20 13:09 Random Glucose 134 mg/dL (60-115) H 05/23/20 13:09 Calcium 9.3 mg/dL (8.4-10.2) 05/23/20 13:09 Total Bilirubin 0.7 mg/dL (0.0-1.0) 05/23/20 13:09 AST 27 U/L (5-31) 05/23/20 13:09 ALT 40 U/L (0-31) H 05/23/20 13:09 Alkaline Phosphatase 70 U/L (39-117) 05/23/20 13:09 Total Protein 6.0 g/dL (6.5-8.0) L 05/23/20 13:09 Albumin 4.2 g/dL (3.5-5.0) 05/23/20 13:09 Progress Note: A/P (1) Large granular lymphocytic leukemia Status: Chronic Assessment and plan: 1. 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 Peripheral blood flow cytometry for T-cell receptor gene rearrangement was positive.(08/31/18) On cyclosporin 5 mg/kilo (200mg) administered b.i.d. since June 2019. Goal therapeutic level would be 200-400 NG/ML. She is now on prednisone 15 mg every day. Dose of cyclosporin has been decreased to 200 mg once a day. She has not required a blood transfusion since early July. Her blood counts, anemia has improved. I have asked her to cut back prednisone to 10 mg once a day. 2. Tongue lesion. This has been present for many years, biopsies were negative for malignancy. She responded to steroids, prednisone. 3. Chronic left knee pain. She has had multiple interventions for pain management with Dr. Joiner. None of these were successful. She has been on tramadol and ibuprofen/Tylenol. I am prescribing oxycodone 5 mg p.o. Q 8 p.r.n.. Which has helped in the past. She is establishing with a new PCP. - Time Spent With Patient Total time spent is greater than 50% in coordination of care (as documented) at patient's floor/unit and/or counseling patient: 25 - 35 minutes
[2020-08-23 14:44] LABS: Alanine Aminotransferase 39 U/L (0-31); Albumin Level 4.4 g/dL (3.5-5.0); Alkaline Phosphatase 83 U/L (39-117); Anion Gap 15 (12-20); Aspartate Amino Transferase 25 U/L (5-31); Bilirubin Total 0.7 mg/dL (0.0-1.0); Blood Urea Nitrogen 26 mg/dL (9-16); Calcium 9.6 mg/dL (8.4-10.2); Carbon Dioxide 29 mmol/L (22-29); Chloride 103 mmol/L (96-108); Creatinine Clr Calc Pharmacy 48.7; Estimated Glomerular Filt Rate > 60; Glucose Random 98 mg/dL (60-115); Potassium 3.8 mmol/l (3.3-5.1); Sodium 143 mmol/L (135-145); Total Protein 6.3 g/dL (6.5-8.0)
--- NOTE | 2020-08-23 16:02 | MHC.HEMONC ---
Exam with Dr. Bowles. Labs obtained and reviewed. Patient complained of ongoing left knee pain. Dr. Bowles prescribed oxycodone, patient states Tramadol is not effective. Referral made for [facility]. Lida Bourgeois to set appointment and will call patient with information. 3 month follow up.
--- NOTE | 2020-09-08 15:18 | MHC.HEMONCMA ---
Lida spoke to patient notifying her that she has not heard back from pcp office and that she will call her as soon as she gets an appointment. Patient agreed.
--- NOTE | 2020-09-12 10:44 | MHC.HEMONCMA ---
Spoke with [facility], they state that I have to talk to Alethea Boggs to schedule this appt for this specific doctor, i did email Alethea and i asked the cashier receptionist i spoke with to CC me in her email with Alethea.
--- NOTE | 2020-09-19 10:47 | MHC.HEMONCMA ---
Patient called and left a voicemail that no one has called her to schedule and appt with a new PCP. I emailed Alethea again from [facility] to tell her that this is an urgent matter and to please call Keira. I called Keira and i told her that i emailed Alethea again and told her that i made Alethea aware that it is an urgent matter.
[2020-11-28 13:57] VITALS: BP 147/67; PULSE 133; RESP 12; TEMP 37.4; O2SAT 92
[2020-11-28 14:01] LABS: MANUAL DIFF FLAG NO
[2020-11-28 14:04] LABS: Basophils Percent Auto 0.3 % (0-2); Eosinophils Percent Auto 0.3 % (0-4); Hematocrit 29.6 % (37-47); Hemoglobin 9.6 g/dl (12.0-16.0); Imm Gran Abs Auto 0.09 X10*3/uL (0.00-0.03); Imm Gran Pct Auto 1.2 % (0.0-0.4); Lymphocytes Absolute Auto 1.2 X10*3/uL (1.2-4.9); Lymphocytes Percent Auto 15.5 % (20-40); Mean Corpuscular HGB Conc 32.4 g/dl (31.0-35.0); Mean Corpuscular Hemoglobin 36.1 pg (27.0-33.0); Mean Corpuscular Volume 111.3 fL (80-98); Monocytes Absolute Auto 0.3 X10*3/uL (0.1-1.2); Monocytes Percent Auto 3.8 % (2-11); Neutrophils Absolute Auto 5.8 X10*3/uL (2.0-8.3); Neutrophils Percent Auto 78.9 % (45-73); Platelet Count 284 X10*3/uL (160-400); Red Blood Count 2.66 X10*6/uL (4.20-5.50); White Blood Count 7.4 X10*3/uL (4.8-10.8)
--- NOTE | 2020-11-28 14:34 | PM.HEMONCPN ---
Medical Summary - Medical Summary Date of Service: 11/28/20 Chief complaint: Sores in mouth Medical Summary: DIAGNOSIS: 1. T-Cell Large granular Lymphocytic Lymphoma. Normocytic to microcytic anemia. Managed by Dr. Stack for myelodysplastic syndrome until June 2018. Diagnosed with macrocytic anemia in 2016. Bone marrow biopsy performed May 2017 showed active trilineage hematopoiesis with a few hypolobated megakaryocytes raising possibility of early myelodysplastic syndrome. Flow cytometry showed no evidence of clonal lymphoid expansion. Chromosome analysis revealed 46XX. 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 Serum erythropoietin level in May 2018 was 625.8. Ferritin 1385 in June 2018. Repeat Bone marrow biopsy performed 07/30/18 showed mildly hypercellular, myeloid dominant marrow with reduced erythroid precursors and dyspoietic maturation in megakaryocytes, increased iron stores. Probable myelodysplastic syndrome. FISH panel negative for deletions of IQ, 7Q and 20 q. Negative for monosomy of chromosome 5 and 7 and trisomy of chromosome 7. Normal pattern of hybridization. Flow cytometry and cytogenetics Showed no atypical flow cytometric findings, and normal female karyotype 46XX. Flow cytometry for PNH was negative. 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 This compresses trachea significantly to right and compresses left brachiocephalic vein and SVC. TSH, free T4 normal. Repeat bone marrow biopsy performed in July [address] 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 Multiple lymphoid aggregates composed mainly of T cells with inverted CD4 :CD8 ratio by flow cytometry. Diagnostic consideration is thus T-large granular lymphocytic leukemia. Morphologic findings do not suggest myelodysplastic syndrome. She was initially tried on Cytoxan with prednisone about 2-3 months, this did not help. She was on methotrexate 10 mg per meter square weekly from September 2018 to 11/19/2018. She did not tolerate the medication, developed significant diarrhea. She did achieve benefit for 3-4 months with it. THERAPY: 1. CYTOXAN. 2. Switched to MTX, September 2018 3, cyclosporin June 2019 Interval History Interval history: Keira is here in follow-up. She was brought in by her brother. She is a bit upset today because of impending sale of her home and moving to a pen[facility]. She is not able to manage her house anymore. She also developed a skin lesion on her nose, she is already scheduled to see a gas line repairer. For the last month she noticed lesions on her tongue and mouth which cause pain. She denies any difficulty swallowing. No fever or chills. She remains on cyclosporine as well as prednisone 5 mg daily. Review of Systems - Constitutional Reports as per HPI, Reports no additional constitutional complaints - Neurologic Reports no additional neurologic complaints [facility] Medical History: Medical History (Last Reviewed 11/28/20 @ 13:59 by Sarah Valles) Ankle fracture, left Basal cell carcinoma Cancer Goiter Hypertension Knee pain, left Oral mucosal lesion Osteoarthritis Osteoarthritis of left knee Family History: Family History (Last Updated 11/28/20 @ 14:02 by Sarah Valles) Father H/O leukemia H/O malignant mesothelioma H/O: hypertension Mother H/O: hypertension Surgical History: Surgical History (Last Reviewed 11/28/20 @ 13:59 by Sarah Valles) History of appendectomy History of bilateral knee replacement Social History: Social History (Last Reviewed 11/28/20 @ 13:59 by Sarah Valles) Alcohol History: Alcohol intake: never Alcohol History Details: Alcohol intake frequency: does not drink Tobacco History: Smoking Status: Never smoker Second Hand Smoke Exposure: No Smoking status: Never smoker Oncology Screenings - ECOG Performance Status ECOG Performance Status: 3 Home Medications and Allergies Home Medications Medication Instructions Recorded Confirmed Type Lactobacillus rhamnosus GG 1 cap PO BID 05/23/20 08/23/20 History [Culturelle] acetaminophen 500 mg PO Q6H PRN 05/23/20 08/23/20 History ascorbic acid (vitamin C) [Vitamin 750 mg PO DAILY 05/23/20 08/23/20 History C] calcium 500 mg PO DAILY 05/23/20 08/23/20 History hydrochlorothiazide 25 mg PO QAM 05/23/20 08/23/20 History ibuprofen 400 mg PO TID PRN 05/23/20 08/23/20 History multivitamin 1 tab PO DAILY 05/23/20 08/23/20 History prednisone 10 mg PO DAILY 05/23/20 08/23/20 History amlodipine 1 tab PO DAILY 08/23/20 08/23/20 History Allergies Allergy/AdvReac Type Severity Reaction Status Date / Time Sulfa (Sulfonamide Allergy Intermediate RASH,HAS Verified 07/31/20 10:23 Antibiotics) HAD [SULFA (SULFONAMIDE RECENTLY ANTIBIOTICS)] WITHOUT REACTION Exam Vital signs: Vital Signs Temp 99.3 F 11/28/20 13:57 Pulse 133 H 11/28/20 13:57 Resp 12 11/28/20 13:57 BP 147/67 H 11/28/20 13:57 Pulse Ox 92 11/28/20 13:57 Weight 65.5 kg Body Mass Index 26.4 - Constitutional Present: no acute distress - Routine HEENT Exam Head: Present: normal inspection Comments: Bridge of her nose with firm fungating lesion of skin. Tongue with cystic lesions. - Routine Neck Exam Absent: lymphadenopathy - Routine Respiratory Exam Present: CTAB - Routine Cardiovascular Exam Cardiovascular: Present: RRR, S1, S2 - Routine Abdominal Exam Present: normal bowel sounds, soft Data - Labs CBC & Chem 7: 11/28/20 13:56 08/23/20 14:00 Labs: 05/23/20 13:09 Complete Blood Count Auto Diff Routine Comprehensive Met. Panel Routine 08/23/20 14:00 Complete Blood Count Auto Diff Routine Laboratory Last Values WBC 7.5 X10*3/uL (4.8-10.8) 08/23/20 14:00 RBC 2.87 X10*6/uL (4.20-5.50) L 08/23/20 14:00 Hgb 10.5 g/dl (12.0-16.0) L 08/23/20 14:00 Hct 31.3 % (37-47) L 08/23/20 14:00 MCV 109.1 fL (80-98) H 08/23/20 14:00 MCH 36.6 pg (27.0-33.0) H 08/23/20 14:00 MCHC 33.5 g/dl (31.0-35.0) 08/23/20 14:00 RDW 12.3 % (11.0-16.0) 08/23/20 14:00 Plt Count 260 X10*3/uL (160-400) 08/23/20 14:00 MPV 11.4 fL (9.4-12.3) 08/23/20 14:00 Immature Gran % (Auto) 0.4 % (0.0-0.4) 08/23/20 14:00 Neut % (Auto) 53.5 % (45-73) 08/23/20 14:00 Lymph % (Auto) 36.7 % (20-40) 08/23/20 14:00 [place] % (Auto) 8.4 % (2-11) 08/23/20 14:00 Eos % (Auto) 0.5 % (0-4) 08/23/20 14:00 Baso % (Auto) 0.5 % (0-2) 08/23/20 14:00 Lymph # (Auto) 2.8 X10*3/uL (1.2-4.9) 08/23/20 14:00 [place] # (Auto) 0.6 X10*3/uL (0.1-1.2) 08/23/20 14:00 Eos # (Auto) 0.0 X10*3/uL (0.0-0.4) 08/23/20 14:00 Baso # (Auto) 0.0 X10*3/uL (0.0-0.2) 08/23/20 14:00 Abs Immat Gran (auto) 0.03 X10*3/uL (0.00-0.03) 08/23/20 14:00 Absolute Neuts (auto) 4.0 X10*3/uL (2.0-8.3) 08/23/20 14:00 Absolute Nucleated RBC 0.000 X10*3/uL (0.0-0.012) 08/23/20 14:00 Nucleated RBC % (auto) 0.0 /100WBC (0.0-0.2) 08/23/20 14:00 Sodium 141 mmol/L (135-145) 05/23/20 13:09 Potassium 3.9 mmol/l (3.3-5.1) 05/23/20 13:09 Chloride 103 mmol/L (96-108) 05/23/20 13:09 Carbon Dioxide 29 mmol/L (22-29) 05/23/20 13:09 Anion Gap 13 (12-20) 05/23/20 13:09 BUN 38 mg/dL (9-16) H 05/23/20 13:09 Creatinine 0.80 mg/dL (0.5-1.4) 05/23/20 13:09 Estim Creat Clear Calc 49.0 05/23/20 13:09 Estimated GFR > 60 05/23/20 13:09 Random Glucose 134 mg/dL (60-115) H 05/23/20 13:09 Calcium 9.3 mg/dL (8.4-10.2) 05/23/20 13:09 Total Bilirubin 0.7 mg/dL (0.0-1.0) 05/23/20 13:09 AST 27 U/L (5-31) 05/23/20 13:09 ALT 40 U/L (0-31) H 05/23/20 13:09 Alkaline Phosphatase 70 U/L (39-117) 05/23/20 13:09 Total Protein 6.0 g/dL (6.5-8.0) L 05/23/20 13:09 Albumin 4.2 g/dL (3.5-5.0) 05/23/20 13:09 Progress Note: A/P (1) Large granular lymphocytic leukemia Status: Chronic Assessment and plan: 1. 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 Peripheral blood flow cytometry for T-cell receptor gene rearrangement was positive.(08/31/18) On cyclosporin 5 mg/kilo (200mg) administered b.i.d. since June 2019. Goal therapeutic level would be 200-400 NG/ML. She is now on prednisone 15 mg every day. Dose of cyclosporin has been decreased to 200 mg once a day. She has not required a blood transfusion since early July. Her blood counts, anemia has improved. She is on prednisone 5 mg once a day. I have asked her to briefly hold cyclosporin for 2 weeks. 2. Tongue lesion. This has been present for many years, biopsies were negative for malignancy. She responded to steroids, prednisone. She has recurrence of painful tongue lesions. Trial of acyclovir 400 mg p.o. t.i.d. as she is on long-term immunosuppressive medications and herpes simplex is a possibility. 3. Chronic left knee pain. She has had multiple interventions for pain management with Dr. Joiner. None of these were successful. She has been on tramadol and ibuprofen/Tylenol. I am prescribing oxycodone 5 mg p.o. Q 8 p.r.n.. Which has helped in the past. Follow-up in 2 weeks. - Time Spent With Patient Total time spent is greater than 50% in coordination of care (as documented) at patient's floor/unit and/or counseling patient: 15 - 24 minutes
[2020-11-28 14:37] LABS: Alanine Aminotransferase 32 U/L (0-31); Albumin Level 4.1 g/dL (3.5-5.0); Alkaline Phosphatase 83 U/L (39-117); Anion Gap 14 (12-20); Aspartate Amino Transferase 26 U/L (5-31); Bilirubin Total 0.6 mg/dL (0.0-1.0); Blood Urea Nitrogen 36 mg/dL (9-16); Calcium 9.5 mg/dL (8.4-10.2); Carbon Dioxide 28 mmol/L (22-29); Chloride 105 mmol/L (96-108); Creatinine Clr Calc Pharmacy 45.8; Estimated Glomerular Filt Rate > 60; Glucose Random 133 mg/dL (60-115); Sodium 143 mmol/L (135-145)
--- NOTE | 2020-11-28 14:57 | MHC.HEMONCMA ---
Pt presents to f/u on leukemia. History reviewed, labs drawn and pt to return in 2 weeks.
--- NOTE | 2020-12-12 14:18 | HO.HEMONCTE1 ---
[facility] Telehealth - Telehealth Location of Provider rendering services: Office Location of Patient: Home Patient Identification confirmed using: Name, : Yes Telehealth Method: Telephone Patient verbally consented to treatment: Yes Patient verbally consented to billing insurance company: Yes Patient informed of any privacy concerns related to visit: Yes Medical Summary - Medical Summary Date of Service: 12/12/20 Chief complaint: Scheduled follow-up Medical Summary: DIAGNOSIS: 1. T-Cell Large granular Lymphocytic Lymphoma. Normocytic to microcytic anemia. Managed by Dr. Stack for myelodysplastic syndrome until June 2018. Diagnosed with macrocytic anemia in 2016. Bone marrow biopsy performed May 2017 showed active trilineage hematopoiesis with a few hypolobated megakaryocytes raising possibility of early myelodysplastic syndrome. Flow cytometry showed no evidence of clonal lymphoid expansion. Chromosome analysis revealed 46XX. 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 Serum erythropoietin level in May 2018 was 625.8. Ferritin 1385 in June 2018. Repeat Bone marrow biopsy performed 07/30/18 showed mildly hypercellular, myeloid dominant marrow with reduced erythroid precursors and dyspoietic maturation in megakaryocytes, increased iron stores. Probable myelodysplastic syndrome. FISH panel negative for deletions of IQ, 7Q and 20 q. Negative for monosomy of chromosome 5 and 7 and trisomy of chromosome 7. Normal pattern of hybridization. Flow cytometry and cytogenetics Showed no atypical flow cytometric findings, and normal female karyotype 46XX. Flow cytometry for PNH was negative. 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 This compresses trachea significantly to right and compresses left brachiocephalic vein and SVC. TSH, free T4 normal. 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 Multiple lymphoid aggregates composed mainly of T cells with inverted CD4 :CD8 ratio by flow cytometry. Diagnostic consideration is thus T-large granular lymphocytic leukemia. Morphologic findings do not suggest myelodysplastic syndrome. She was initially tried on Cytoxan with prednisone about 2-3 months, this did not help. She was on methotrexate 10 mg per meter square weekly from September 2018 to 11/19/2018. She did not tolerate the medication, developed significant diarrhea. She did achieve benefit for 3-4 months with it. THERAPY: 1. CYTOXAN. 2. Switched to MTX, September 2018 3, cyclosporin June 2019 Interval History Interval history: This is scheduled tele visit for patient based on COVID-19 pandemic guidelines. Patient is doing much better now. She is finishing course of acyclovir and her tongue lesions are no longer painful. She has also not been taking cyclosporin. She denies any exertional chest pain or shortness of breath. She is very busy at the moment because of moving her residence to a assisted living facility. Review of Systems - Constitutional Reports as per HPI, Reports no additional constitutional complaints - Neurologic Reports no additional neurologic complaints Home Medications and Allergies Home Medications Medication Instructions Recorded Confirmed Type Lactobacillus rhamnosus GG 1 cap PO BID 05/23/20 08/23/20 History [Culturelle] acetaminophen 500 mg PO Q6H PRN 05/23/20 08/23/20 History ascorbic acid (vitamin C) [Vitamin 750 mg PO DAILY 05/23/20 08/23/20 History C] calcium 500 mg PO DAILY 05/23/20 08/23/20 History hydrochlorothiazide 25 mg PO QAM 05/23/20 08/23/20 History ibuprofen 400 mg PO TID PRN 05/23/20 08/23/20 History multivitamin 1 tab PO DAILY 05/23/20 08/23/20 History prednisone 10 mg PO DAILY 05/23/20 08/23/20 History amlodipine 1 tab PO DAILY 08/23/20 08/23/20 History Allergies Allergy/AdvReac Type Severity Reaction Status Date / Time Sulfa (Sulfonamide Allergy Intermediate RASH,HAS Verified 07/31/20 10:23 Antibiotics) HAD [SULFA (SULFONAMIDE RECENTLY ANTIBIOTICS)] WITHOUT REACTION Exam Vital signs: Vital Signs Temp 99.3 F 11/28/20 13:57 Pulse 133 H 11/28/20 13:57 Resp 12 11/28/20 13:57 BP 147/67 H 11/28/20 13:57 Pulse Ox 92 11/28/20 13:57 Weight 65.5 kg Body Mass Index 26.4 Narrative: Not examined today - Constitutional Present: no acute distress - Routine HEENT Exam Head: Present: normal inspection - Routine Neck Exam Absent: lymphadenopathy - Routine Respiratory Exam Present: CTAB - Routine Cardiovascular Exam Cardiovascular: Present: RRR, S1, S2 - Routine Abdominal Exam Present: normal bowel sounds, soft Data - Labs CBC & Chem 7: 11/28/20 13:56 11/28/20 13:56 Labs: 05/23/20 13:09 Complete Blood Count Auto Diff Routine Comprehensive Met. Panel Routine 08/23/20 14:00 Complete Blood Count Auto Diff Routine Laboratory Last Values WBC 7.5 X10*3/uL (4.8-10.8) 08/23/20 14:00 RBC 2.87 X10*6/uL (4.20-5.50) L 08/23/20 14:00 Hgb 10.5 g/dl (12.0-16.0) L 08/23/20 14:00 Hct 31.3 % (37-47) L 08/23/20 14:00 MCV 109.1 fL (80-98) H 08/23/20 14:00 MCH 36.6 pg (27.0-33.0) H 08/23/20 14:00 MCHC 33.5 g/dl (31.0-35.0) 08/23/20 14:00 RDW 12.3 % (11.0-16.0) 08/23/20 14:00 Plt Count 260 X10*3/uL (160-400) 08/23/20 14:00 MPV 11.4 fL (9.4-12.3) 08/23/20 14:00 Immature Gran % (Auto) 0.4 % (0.0-0.4) 08/23/20 14:00 Neut % (Auto) 53.5 % (45-73) 08/23/20 14:00 Lymph % (Auto) 36.7 % (20-40) 08/23/20 14:00 [place] % (Auto) 8.4 % (2-11) 08/23/20 14:00 Eos % (Auto) 0.5 % (0-4) 08/23/20 14:00 Baso % (Auto) 0.5 % (0-2) 08/23/20 14:00 Lymph # (Auto) 2.8 X10*3/uL (1.2-4.9) 08/23/20 14:00 [place] # (Auto) 0.6 X10*3/uL (0.1-1.2) 08/23/20 14:00 Eos # (Auto) 0.0 X10*3/uL (0.0-0.4) 08/23/20 14:00 Baso # (Auto) 0.0 X10*3/uL (0.0-0.2) 08/23/20 14:00 Abs Immat Gran (auto) 0.03 X10*3/uL (0.00-0.03) 08/23/20 14:00 Absolute Neuts (auto) 4.0 X10*3/uL (2.0-8.3) 08/23/20 14:00 Absolute Nucleated RBC 0.000 X10*3/uL (0.0-0.012) 08/23/20 14:00 Nucleated RBC % (auto) 0.0 /100WBC (0.0-0.2) 08/23/20 14:00 Sodium 141 mmol/L (135-145) 05/23/20 13:09 Potassium 3.9 mmol/l (3.3-5.1) 05/23/20 13:09 Chloride 103 mmol/L (96-108) 05/23/20 13:09 Carbon Dioxide 29 mmol/L (22-29) 05/23/20 13:09 Anion Gap 13 (12-20) 05/23/20 13:09 BUN 38 mg/dL (9-16) H 05/23/20 13:09 Creatinine 0.80 mg/dL (0.5-1.4) 05/23/20 13:09 Estim Creat Clear Calc 49.0 05/23/20 13:09 Estimated GFR > 60 05/23/20 13:09 Random Glucose 134 mg/dL (60-115) H 05/23/20 13:09 Calcium 9.3 mg/dL (8.4-10.2) 05/23/20 13:09 Total Bilirubin 0.7 mg/dL (0.0-1.0) 05/23/20 13:09 AST 27 U/L (5-31) 05/23/20 13:09 ALT 40 U/L (0-31) H 05/23/20 13:09 Alkaline Phosphatase 70 U/L (39-117) 05/23/20 13:09 Total Protein 6.0 g/dL (6.5-8.0) L 05/23/20 13:09 Albumin 4.2 g/dL (3.5-5.0) 05/23/20 13:09 Progress Note: A/P (1) Large granular lymphocytic leukemia Status: Chronic Assessment and plan: 1. 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 Peripheral blood flow cytometry for T-cell receptor gene rearrangement was positive.(08/31/18) On cyclosporin 5 mg/kilo (200mg) administered b.i.d. since June 2019. Goal therapeutic level would be 200-400 NG/ML. She is now on prednisone 15 mg every day. Dose of cyclosporin has been decreased to 200 mg once a day. She has not required a blood transfusion since early July. Her blood counts, anemia has improved. She is on prednisone 5 mg once a day. Cyclosporin has been on hold since beginning of November 2020. 2. Tongue lesion. This has been present for many years, biopsies were negative for malignancy. She responded to steroids, prednisone. She has recurrence of painful tongue lesions. Trial of acyclovir 400 mg p.o. t.i.d. as she is on long-term immunosuppressive medications and herpes simplex is a possibility. She appears to have responded well, patient states that her tongue lesions are no longer painful. She has completed course of antibiotics. 3. Chronic left knee pain. She has had multiple interventions for pain management with Dr. Joiner. None of these were successful. She has been on tramadol and ibuprofen/Tylenol. I am prescribing oxycodone 5 mg p.o. Q 8 p.r.n.. Which has helped in the past. Follow-up for labs in 2 weeks. I spent about 10 minutes with the patient on the phone. - Time Spent With Patient Total time spent is greater than 50% in coordination of care (as documented) at patient's floor/unit and/or counseling patient: less than 15 minutes
--- NOTE | 2020-12-12 14:54 | MHC.HEMONCMA ---
Patient had a telehealth with the doctor today, states she is doing well. Clinical summary was reviewed and updated. Patient did not have labs and will return for a follow up in 1 month.
[2020-12-26 13:30] LABS: MANUAL DIFF FLAG NO
[2020-12-26 13:33] LABS: Basophils Percent Auto 0.4 % (0-2); Eosinophils Percent Auto 0.1 % (0-4); Hematocrit 21.3 % (37-47); Hemoglobin 7.1 g/dl (12.0-16.0); Imm Gran Abs Auto 0.06 X10*3/uL (0.00-0.03); Imm Gran Pct Auto 0.8 % (0.0-0.4); Lymphocytes Absolute Auto 1.1 X10*3/uL (1.2-4.9); Lymphocytes Percent Auto 15.7 % (20-40); Mean Corpuscular HGB Conc 33.3 g/dl (31.0-35.0); Mean Corpuscular Hemoglobin 37.4 pg (27.0-33.0); Mean Platelet Volume 11.1 fL (9.4-12.3); Monocytes Absolute Auto 0.3 X10*3/uL (0.1-1.2); Monocytes Percent Auto 4.8 % (2-11); Neutrophils Absolute Auto 5.5 X10*3/uL (2.0-8.3); Neutrophils Percent Auto 78.2 % (45-73); Platelet Count 287 X10*3/uL (160-400); Red Cell Distribution Width 12.8 % (11.0-16.0); White Blood Count 7.1 X10*3/uL (4.8-10.8)
[2020-12-26 13:37] LABS: Mean Corpuscular Volume 112.1 fL (80-98)
[2020-12-26 14:03] LABS: Alanine Aminotransferase 33 U/L (0-31); Alkaline Phosphatase 81 U/L (39-117); Anion Gap 12 (12-20); Aspartate Amino Transferase 24 U/L (5-31); Bilirubin Total 0.5 mg/dL (0.0-1.0); Blood Urea Nitrogen 24 mg/dL (9-16); Calcium 9.3 mg/dL (8.4-10.2); Carbon Dioxide 30 mmol/L (22-29); Chloride 104 mmol/L (96-108); Creatinine Clr Calc Pharmacy 47.5; Estimated Glomerular Filt Rate > 60; Glucose Random 122 mg/dL (60-115); Potassium 3.9 mmol/L (3.3-5.1); Sodium 142 mmol/L (135-145); Total Protein 5.6 g/dL (6.5-8.0)
--- NOTE | 2020-12-26 16:36 | MHC.HEMONC ---
Labs reviewed. H/H 7.1/.3- order to tranfuse 2 units of RBCs. T&S completed. Blood bank notified. Patient will return tomorrow for transfusion.
[2020-12-27 09:07] VITALS: BP 106/57; PULSE 75; RESP 18; TEMP 36.7; O2SAT 96; BMI 26.4
[2020-12-27 10:01] VITALS: BP 113/55; PULSE 68; RESP 16; TEMP 37.1
[2020-12-27 10:20] VITALS: BP 106/53; PULSE 65; RESP 18; TEMP 35.9
[2020-12-27 11:53] VITALS: BP 148/64; PULSE 79; RESP 18; TEMP 36
[2020-12-27 12:13] VITALS: BP 120/60; PULSE 71; RESP 17; TEMP 36
[2020-12-27 14:06] VITALS: BP 131/61; PULSE 68; RESP 18; TEMP 36.7
--- NOTE | 2020-12-27 14:26 | MHC.HEMONC ---
H/H 7.1/21.3- 2 units of RBCS ordered. Consent obtained. 2 units well tolerated. VSS, no respiratory distress or signs of transfusion reaction noted. #20 angio to RAC. Patient will return in 3 weeks for follow up and labs. Patient instructed to resume Cyclosporine.
[2021-01-17 10:06] LABS: MANUAL DIFF FLAG NO
[2021-01-17 10:09] VITALS: BP 134/60; PULSE 64; RESP 14; TEMP 36.4; O2SAT 96; BMI 24.7
[2021-01-17 10:26] LABS: Basophils Percent Auto 0.5 % (0-2); Eosinophils Percent Auto 0.2 % (0-4); Hematocrit 22.9 % (37-47); Hemoglobin 7.6 g/dl (12.0-16.0); Imm Gran Abs Auto 0.06 X10*3/uL (0.00-0.03); Lymphocytes Absolute Auto 1.3 X10*3/uL (1.2-4.9); Lymphocytes Percent Auto 20.3 % (20-40); Mean Corpuscular HGB Conc 33.2 g/dl (31.0-35.0); Mean Corpuscular Hemoglobin 34.7 pg (27.0-33.0); Mean Corpuscular Volume 104.6 fL (80-98); Mean Platelet Volume 11.4 fL (9.4-12.3); Monocytes Absolute Auto 0.5 X10*3/uL (0.1-1.2); Monocytes Percent Auto 8.3 % (2-11); Neutrophils Absolute Auto 4.4 X10*3/uL (2.0-8.3); Neutrophils Percent Auto 69.7 % (45-73); Platelet Count 342 X10*3/uL (160-400); Red Blood Count 2.19 X10*6/uL (4.20-5.50); Red Cell Distribution Width 14.1 % (11.0-16.0); White Blood Count 6.3 X10*3/uL (4.8-10.8)
--- NOTE | 2021-01-17 13:00 | MHC.HEMONCMA ---
Patient came in for a follow up, states she is ok. Clinical summary was reviewed and updated. Patient had bloodwork, which showed she needed to be transfused. She is in an infusion room receiving her blood now.
--- NOTE | 2021-01-17 13:00 | PM.HEMONCPN ---
Medical Summary - Medical Summary Date of Service: 01/17/21 Chief complaint: Follow up Medical Summary: DIAGNOSIS: 1. T-Cell Large granular Lymphocytic Lymphoma. Normocytic to microcytic anemia. Managed by Dr. Stack for myelodysplastic syndrome until June 2018. Diagnosed with macrocytic anemia in 2016. Bone marrow biopsy performed May 2017 showed active trilineage hematopoiesis with a few hypolobated megakaryocytes raising possibility of early myelodysplastic syndrome. Flow cytometry showed no evidence of clonal lymphoid expansion. Chromosome analysis revealed 46XX. 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 Serum erythropoietin level in May 2018 was 625.8. Ferritin 1385 in June 2018. Repeat Bone marrow biopsy performed 07/30/18 showed mildly hypercellular, myeloid dominant marrow with reduced erythroid precursors and dyspoietic maturation in megakaryocytes, increased iron stores. Probable myelodysplastic syndrome. FISH panel negative for deletions of IQ, 7Q and 20 q. Negative for monosomy of chromosome 5 and 7 and trisomy of chromosome 7. Normal pattern of hybridization. Flow cytometry and cytogenetics Showed no atypical flow cytometric findings, and normal female karyotype 46XX. Flow cytometry for PNH was negative. 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 This compresses trachea significantly to right and compresses left brachiocephalic vein and SVC. TSH, free T4 normal. 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 Multiple lymphoid aggregates composed mainly of T cells with inverted CD4 :CD8 ratio by flow cytometry. Diagnostic consideration is thus T-large granular lymphocytic leukemia. Morphologic findings do not suggest myelodysplastic syndrome. She was initially tried on Cytoxan with prednisone about 2-3 months, this did not help. She was on methotrexate 10 mg per meter square weekly from September 2018 to 11/19/2018. She did not tolerate the medication, developed significant diarrhea. She did achieve benefit for 3-4 months with it. THERAPY: 1. CYTOXAN. 2. Switched to MTX, September 2018 3, cyclosporin June 2019 Interval History Interval history: Patient is here in follow-up. She is doing about the same. She denies any acute symptoms such as fever, chills or shortness of breath. She feels tired and her mouth sores have still not resolved. She finished course of acyclovir. She has been told by oral surgeon that this is lichen planus and was treated with prednisone. Review of Systems - Constitutional Reports as per HPI, Reports no additional constitutional complaints - Neurologic Reports no additional neurologic complaints [facility] Medical History: Medical History (Last Reviewed 11/28/20 @ 13:59 by Sarah Valles) Ankle fracture, left Basal cell carcinoma Cancer Goiter Hypertension Knee pain, left Oral mucosal lesion Osteoarthritis Osteoarthritis of left knee Family History: Family History (Last Updated 11/28/20 @ 14:02 by Sarah Valles) Father H/O leukemia H/O malignant mesothelioma H/O: hypertension Mother H/O: hypertension Surgical History: Surgical History (Last Reviewed 11/28/20 @ 13:59 by Sarah Valles) History of appendectomy History of bilateral knee replacement Social History: Social History (Last Updated 12/12/20 @ 14:15 by Lida Bourgeois) Alcohol History: Alcohol intake: former Alcohol History Details: Alcohol intake frequency: does not drink Tobacco History: Second Hand Smoke Exposure: No Substance Use History: Use of substances other than those prescribed or required for medical reasons: No Oncology Screenings - ECOG Performance Status ECOG Performance Status: 1 Home Medications and Allergies Home Medications Medication Instructions Recorded Confirmed Type Lactobacillus rhamnosus GG 1 cap PO BID 05/23/20 12/27/20 History [Culturelle] acetaminophen 500 mg PO Q6H PRN 05/23/20 12/27/20 History ascorbic acid (vitamin C) [Vitamin 750 mg PO DAILY 05/23/20 12/27/20 History C] calcium 500 mg PO DAILY 05/23/20 12/27/20 History ibuprofen 400 mg PO TID PRN 05/23/20 12/27/20 History multivitamin 1 tab PO DAILY 05/23/20 12/27/20 History prednisone 10 mg PO DAILY 05/23/20 12/27/20 History amlodipine 1 tab PO DAILY 08/23/20 12/27/20 History escitalopram oxalate 1 tab PO DAILY 12/27/20 12/27/20 History lidocaine HCl [Lidocaine Viscous] 15 ml PO QID 12/27/20 12/27/20 History Allergies Allergy/AdvReac Type Severity Reaction Status Date / Time Sulfa (Sulfonamide Allergy Intermediate RASH,HAS Verified 07/31/20 10:23 Antibiotics) HAD [SULFA (SULFONAMIDE RECENTLY ANTIBIOTICS)] WITHOUT REACTION Exam Vital signs: Vital Signs Temp 97.5 F 01/17/21 10:09 Pulse 64 01/17/21 10:09 Resp 14 01/17/21 10:09 BP 134/60 01/17/21 10:09 Pulse Ox 96 01/17/21 10:09 Intake & Output 01/16/21 01/17/21 01/17/21 18:59 06:59 18:59 Other: Weight 61.5 kg Weight in Grams 33981 Weight 61.5 kg Body Mass Index 24.7 - Constitutional Present: no acute distress - Routine HEENT Exam Head: Present: normal inspection - Routine Neck Exam Absent: lymphadenopathy - Routine Respiratory Exam Present: CTAB - Routine Cardiovascular Exam Cardiovascular: Present: RRR, S1, S2 - Routine Abdominal Exam Present: normal bowel sounds, soft Data - Labs CBC & Chem 7: 01/17/21 10:00 12/26/20 13:26 Labs: 05/23/20 13:09 Complete Blood Count Auto Diff Routine Comprehensive Met. Panel Routine 08/23/20 14:00 Complete Blood Count Auto Diff Routine Laboratory Last Values WBC 7.5 X10*3/uL (4.8-10.8) 08/23/20 14:00 RBC 2.87 X10*6/uL (4.20-5.50) L 08/23/20 14:00 Hgb 10.5 g/dl (12.0-16.0) L 08/23/20 14:00 Hct 31.3 % (37-47) L 08/23/20 14:00 MCV 109.1 fL (80-98) H 08/23/20 14:00 MCH 36.6 pg (27.0-33.0) H 08/23/20 14:00 MCHC 33.5 g/dl (31.0-35.0) 08/23/20 14:00 RDW 12.3 % (11.0-16.0) 08/23/20 14:00 Plt Count 260 X10*3/uL (160-400) 08/23/20 14:00 MPV 11.4 fL (9.4-12.3) 08/23/20 14:00 Immature Gran % (Auto) 0.4 % (0.0-0.4) 08/23/20 14:00 Neut % (Auto) 53.5 % (45-73) 08/23/20 14:00 Lymph % (Auto) 36.7 % (20-40) 08/23/20 14:00 [place] % (Auto) 8.4 % (2-11) 08/23/20 14:00 Eos % (Auto) 0.5 % (0-4) 08/23/20 14:00 Baso % (Auto) 0.5 % (0-2) 08/23/20 14:00 Lymph # (Auto) 2.8 X10*3/uL (1.2-4.9) 08/23/20 14:00 [place] # (Auto) 0.6 X10*3/uL (0.1-1.2) 08/23/20 14:00 Eos # (Auto) 0.0 X10*3/uL (0.0-0.4) 08/23/20 14:00 Baso # (Auto) 0.0 X10*3/uL (0.0-0.2) 08/23/20 14:00 Abs Immat Gran (auto) 0.03 X10*3/uL (0.00-0.03) 08/23/20 14:00 Absolute Neuts (auto) 4.0 X10*3/uL (2.0-8.3) 08/23/20 14:00 Absolute Nucleated RBC 0.000 X10*3/uL (0.0-0.012) 08/23/20 14:00 Nucleated RBC % (auto) 0.0 /100WBC (0.0-0.2) 08/23/20 14:00 Sodium 141 mmol/L (135-145) 05/23/20 13:09 Potassium 3.9 mmol/l (3.3-5.1) 05/23/20 13:09 Chloride 103 mmol/L (96-108) 05/23/20 13:09 Carbon Dioxide 29 mmol/L (22-29) 05/23/20 13:09 Anion Gap 13 (12-20) 05/23/20 13:09 BUN 38 mg/dL (9-16) H 05/23/20 13:09 Creatinine 0.80 mg/dL (0.5-1.4) 05/23/20 13:09 Estim Creat Clear Calc 49.0 05/23/20 13:09 Estimated GFR > 60 05/23/20 13:09 Random Glucose 134 mg/dL (60-115) H 05/23/20 13:09 Calcium 9.3 mg/dL (8.4-10.2) 05/23/20 13:09 Total Bilirubin 0.7 mg/dL (0.0-1.0) 05/23/20 13:09 AST 27 U/L (5-31) 05/23/20 13:09 ALT 40 U/L (0-31) H 05/23/20 13:09 Alkaline Phosphatase 70 U/L (39-117) 05/23/20 13:09 Total Protein 6.0 g/dL (6.5-8.0) L 05/23/20 13:09 Albumin 4.2 g/dL (3.5-5.0) 05/23/20 13:09 Progress Note: A/P (1) Large granular lymphocytic leukemia Status: Chronic Assessment and plan: 1. 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 Peripheral blood flow cytometry for T-cell receptor gene rearrangement was positive.(08/31/18) On cyclosporin 5 mg/kilo (200mg) administered b.i.d. since June 2019. Goal therapeutic level would be 200-400 NG/ML. She is now on prednisone 15 mg every day. Dose of cyclosporin has been decreased to 200 mg once a day. She has not required a blood transfusion since early July. Her blood counts, anemia has improved. She is on prednisone 5 mg once a day. Cyclosporine Has been resumed. I have asked her to increase prednisone to 10 mg daily.. 2. Tongue lesion /Lichen planus. she is on prednisone 10 mg daily. Transfuse 1 unit PRBC for anemia today. Follow-up for labs in 2 weeks. - Time Spent With Patient 15 - 24 minutes
[2021-01-17 13:16] VITALS: BP 110/53; PULSE 62; RESP 16; TEMP 36.7
[2021-01-17 13:34] VITALS: BP 142/60; PULSE 78; RESP 18; TEMP 37.2
[2021-01-17 15:19] VITALS: BP 136/62; PULSE 61; RESP 17; TEMP 37.1
--- NOTE | 2021-01-17 15:48 | MHC.HEMONC ---
H/H 7.6/22.9- Exam with Dr. Bowles. 1 unit of RBCS ordered and well tolerated. Consent obtained. #20 right AC. No signs of transfusion reaction noted. Follow up in 2 weeks for labs and one month follow up with .
--- NOTE | 2021-01-19 09:45 | MHC.HEMONC ---
Called pt to tell her to increase Prednisone to 15mg daily per Dr Bowles. She verbalized understanding.
[2021-01-31] VITALS (7 sets, daily range): BP systolic 148–170; BP diastolic 65–74; PULSE 55–69; RESP 16–18; TEMP 36.6–36.9; O2SAT 97; BMI 25.0
[2021-01-31 10:06] LABS: MANUAL DIFF FLAG NO
[2021-01-31 10:10] LABS: Basophils Percent Auto 0.2 % (0-2); Hematocrit 23.7 % (37-47); Hemoglobin 7.6 g/dl (12.0-16.0); Imm Gran Abs Auto 0.08 X10*3/uL (0.00-0.03); Imm Gran Pct Auto 1.3 % (0.0-0.4); Lymphocytes Absolute Auto 0.9 X10*3/uL (1.2-4.9); Lymphocytes Percent Auto 14.7 % (20-40); Mean Corpuscular HGB Conc 32.1 g/dl (31.0-35.0); Mean Corpuscular Hemoglobin 32.3 pg (27.0-33.0); Mean Corpuscular Volume 100.9 fL (80-98); Mean Platelet Volume 11.6 fL (9.4-12.3); Monocytes Absolute Auto 0.4 X10*3/uL (0.1-1.2); Monocytes Percent Auto 6.6 % (2-11); Neutrophils Absolute Auto 4.9 X10*3/uL (2.0-8.3); Neutrophils Percent Auto 77.2 % (45-73); Platelet Count 333 X10*3/uL (160-400); Red Blood Count 2.35 X10*6/uL (4.20-5.50); Red Cell Distribution Width 14.9 % (11.0-16.0); White Blood Count 6.3 X10*3/uL (4.8-10.8)
[2021-01-31 10:47] LABS: Alanine Aminotransferase 35 U/L (0-31); Albumin Level 4.1 g/dL (3.5-5.0); Alkaline Phosphatase 65 U/L (39-117); Anion Gap 17 (12-20); Aspartate Amino Transferase 20 U/L (5-31); Bilirubin Total 0.8 mg/dL (0.0-1.0); Blood Urea Nitrogen 25 mg/dL (9-16); Calcium 9.7 mg/dL (8.4-10.2); Carbon Dioxide 27 mmol/L (22-29); Chloride 103 mmol/L (96-108); Creatinine Clr Calc Pharmacy 46.9; Estimated Glomerular Filt Rate > 60; Glucose Random 162 mg/dL (60-115); Potassium 3.8 mmol/L (3.3-5.1); Sodium 143 mmol/L (135-145)
[2021-01-31 12:53] LABS: Glucose Urine UA NEG (NEG); Leukocyte Esterase Urine 2+ (NEG); Nitrite Urine NEG (NEG); PH 5.5 (5.0-8.0); Specific Gravity - Urine 1.015 (1.005-1.025); UACC Culture Trigger YES; Urine Blood TRACE (NEG); Urine Ketones NEG (NEG); Urine Protein TRACE MG/DL (NEG-TRACE)
[2021-01-31 12:54] LABS: Appearance Urine CLOUDY; Color Urine YELLOW
[2021-01-31 13:06] LABS: Bacteria Urine 4+ /LPF; RBC Urine 0-2 /HPF (0); Squamous Epithelial Cell Urine 1+ /LPF; UACC CULT YES
--- NOTE | 2021-01-31 15:03 | MHC.HEMONC ---
H/H 7.6/23.7- Patient asymptomatic. Dr. Bowles aware, order received for 2 units RBCS. 2 units well tolerated with no signs of transfusion reaction noted. #20 to left AC. Patient reports urinary symptoms- urinary frequency and some occasional confusion at bedtime. UA obtained and positive for UTI. Dr. Bowles to prescribe broad spectrum abx. Follow up in 2 weeks.
--- NOTE | 2021-02-01 09:02 | MHC.HEMONC ---
Patient started on levofloxacin for uti and instructed to hold her citalopram for [address] Bowles.
--- NOTE | 2021-02-12 10:24 | MHC.HEMONC ---
pt brother, Andrew called to say Keira is more confused, not eating and he is unsure if she finished her antibiotics for UTI as she has been out of sorts with her [place]. She only wants to speak with Dr Bowles re: her c/o. I spoke with Dr Bowles and she asked for pt to come in and be seen. I ordered labs including T and S and urine testing. Pt brother advised.
[2021-02-12 11:25] LABS: MANUAL DIFF FLAG NO
[2021-02-12 11:30] VITALS: BP 151/67; PULSE 102; RESP 20; TEMP 36.7; O2SAT 94
[2021-02-12 11:39] LABS: Basophils Percent Auto 0.3 % (0-2); Eosinophils Percent Auto 0.4 % (0-4); Hematocrit 27.1 % (37-47); Hemoglobin 9.1 g/dl (12.0-16.0); Imm Gran Abs Auto 0.06 X10*3/uL (0.00-0.03); Imm Gran Pct Auto 0.6 % (0.0-0.4); Lymphocytes Absolute Auto 1.2 X10*3/uL (1.2-4.9); Lymphocytes Percent Auto 11.1 % (20-40); Mean Corpuscular HGB Conc 33.6 g/dl (31.0-35.0); Mean Corpuscular Hemoglobin 32.6 pg (27.0-33.0); Mean Corpuscular Volume 97.1 fL (80-98); Mean Platelet Volume 11.1 fL (9.4-12.3); Monocytes Absolute Auto 0.6 X10*3/uL (0.1-1.2); Monocytes Percent Auto 5.2 % (2-11); Neutrophils Absolute Auto 8.7 X10*3/uL (2.0-8.3); Neutrophils Percent Auto 82.4 % (45-73); Platelet Count 198 X10*3/uL (160-400); Red Blood Count 2.79 X10*6/uL (4.20-5.50); Red Cell Distribution Width 14.6 % (11.0-16.0); White Blood Count 10.6 X10*3/uL (4.8-10.8)
[2021-02-12 11:58] LABS: Alanine Aminotransferase 33 U/L (0-31); Alkaline Phosphatase 65 U/L (39-117); Anion Gap 12 (12-20); Aspartate Amino Transferase 26 U/L (5-31); Bilirubin Total 2.1 mg/dL (0.0-1.0); Blood Urea Nitrogen 47 mg/dL (9-16); Calcium 9.4 mg/dL (8.4-10.2); Carbon Dioxide 29 mmol/L (22-29); Chloride 99 mmol/L (96-108); Creatinine Clr Calc Pharmacy 37.1; Estimated Glomerular Filt Rate 52; Glucose Random 123 mg/dL (60-115); Potassium 3.3 mmol/L (3.3-5.1); Sodium 137 mmol/L (135-145); Total Protein 5.7 g/dL (6.5-8.0)
--- NOTE | 2021-02-12 11:58 | PM.HEMONCPN ---
Medical Summary - Medical Summary Date of Service: 02/12/21 Chief complaint: Confusion Medical Summary: DIAGNOSIS: 1. T-Cell Large granular Lymphocytic Lymphoma. Normocytic to microcytic anemia. Managed by Dr. Stack for myelodysplastic syndrome until June 2018. Diagnosed with macrocytic anemia in 2016. Bone marrow biopsy performed May 2017 showed active trilineage hematopoiesis with a few hypolobated megakaryocytes raising possibility of early myelodysplastic syndrome. Flow cytometry showed no evidence of clonal lymphoid expansion. Chromosome analysis revealed 46XX. 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 Serum erythropoietin level in May 2018 was 625.8. Ferritin 1385 in June 2018. Repeat Bone marrow biopsy performed 07/30/18 showed mildly hypercellular, myeloid dominant marrow with reduced erythroid precursors and dyspoietic maturation in megakaryocytes, increased iron stores. Probable myelodysplastic syndrome. FISH panel negative for deletions of IQ, 7Q and 20 q. Negative for monosomy of chromosome 5 and 7 and trisomy of chromosome 7. Normal pattern of hybridization. Flow cytometry and cytogenetics Showed no atypical flow cytometric findings, and normal female karyotype 46XX. Flow cytometry for PNH was negative. 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 This compresses trachea significantly to right and compresses left brachiocephalic vein and SVC. TSH, free T4 normal. 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 Multiple lymphoid aggregates composed mainly of T cells with inverted CD4 :CD8 ratio by flow cytometry. Diagnostic consideration is thus T-large granular lymphocytic leukemia. Morphologic findings do not suggest myelodysplastic syndrome. She was initially tried on Cytoxan with prednisone about 2-3 months, this did not help. She was on methotrexate 10 mg per meter square weekly from September 2018 to 11/19/2018. She did not tolerate the medication, developed significant diarrhea. She did achieve benefit for 3-4 months with it. THERAPY: 1. CYTOXAN. 2. Switched to MTX, September 2018 3, cyclosporin June 2019 Interval History Interval history: Patient brought in by her brother because of progressive mental status changes. Patient has been confused in the last several days, refusing to eat and not able to take care of herself as per her brother. They are not sure if she is taking her medications. She was on antibiotics for a UTI, she has had previous episodes of confusion when she has had infections. Patient is unable to provide a history. Review of Systems - Neurologic Reports no additional neurologic complaints [facility] Medical History: Medical History (Last Reviewed 11/28/20 @ 13:59 by Sarah Valles) Ankle fracture, left Basal cell carcinoma Cancer Goiter Hypertension Knee pain, left Oral mucosal lesion Osteoarthritis Osteoarthritis of left knee Family History: Family History (Last Updated 11/28/20 @ 14:02 by Sarah Valles) Father H/O leukemia H/O malignant mesothelioma H/O: hypertension Mother H/O: hypertension Surgical History: Surgical History (Last Reviewed 11/28/20 @ 13:59 by Sarah Valles) History of appendectomy History of bilateral knee replacement Social History: Social History (Last Updated 12/12/20 @ 14:15 by Lida Bourgeois) Alcohol History: Alcohol intake: former Alcohol History Details: Alcohol intake frequency: does not drink Tobacco History: Second Hand Smoke Exposure: No Substance Use History: Use of substances other than those prescribed or required for medical reasons: No Home Medications and Allergies Home Medications Medication Instructions Recorded Confirmed Type Lactobacillus rhamnosus GG 1 cap PO BID 05/23/20 12/27/20 History [Culturelle] acetaminophen 500 mg PO Q6H PRN 05/23/20 12/27/20 History ascorbic acid (vitamin C) [Vitamin 750 mg PO DAILY 05/23/20 12/27/20 History C] calcium 500 mg PO DAILY 05/23/20 12/27/20 History ibuprofen 400 mg PO TID PRN 05/23/20 12/27/20 History multivitamin 1 tab PO DAILY 05/23/20 12/27/20 History prednisone 10 mg PO DAILY 05/23/20 12/27/20 History amlodipine 1 tab PO DAILY 08/23/20 12/27/20 History escitalopram oxalate 1 tab PO DAILY 12/27/20 12/27/20 History lidocaine HCl [Lidocaine Viscous] 15 ml PO QID 12/27/20 12/27/20 History Allergies Allergy/AdvReac Type Severity Reaction Status Date / Time Sulfa (Sulfonamide Allergy Intermediate RASH,HAS Verified 07/31/20 10:23 Antibiotics) HAD [SULFA (SULFONAMIDE RECENTLY ANTIBIOTICS)] WITHOUT REACTION Exam Vital signs: Vital Signs Temp 98.1 F 02/12/21 11:30 Pulse 102 H 02/12/21 11:30 Resp 20 02/12/21 11:30 BP 151/67 H 02/12/21 11:30 Pulse Ox 94 02/12/21 11:30 Weight 62.1 kg Body Mass Index 25.0 - Constitutional Present: no acute distress - Routine HEENT Exam Head: Present: normal inspection - Routine Neck Exam Absent: lymphadenopathy - Routine Respiratory Exam Present: CTAB - Routine Cardiovascular Exam Cardiovascular: Present: RRR, S1, S2 - Routine Abdominal Exam Present: normal bowel sounds, soft Data - Labs CBC & Chem 7: 02/12/21 11:15 02/12/21 11:15 Labs: 05/23/20 13:09 Complete Blood Count Auto Diff Routine Comprehensive Met. Panel Routine 08/23/20 14:00 Complete Blood Count Auto Diff Routine Laboratory Last Values WBC 7.5 X10*3/uL (4.8-10.8) 08/23/20 14:00 RBC 2.87 X10*6/uL (4.20-5.50) L 08/23/20 14:00 Hgb 10.5 g/dl (12.0-16.0) L 08/23/20 14:00 Hct 31.3 % (37-47) L 08/23/20 14:00 MCV 109.1 fL (80-98) H 08/23/20 14:00 MCH 36.6 pg (27.0-33.0) H 08/23/20 14:00 MCHC 33.5 g/dl (31.0-35.0) 08/23/20 14:00 RDW 12.3 % (11.0-16.0) 08/23/20 14:00 Plt Count 260 X10*3/uL (160-400) 08/23/20 14:00 MPV 11.4 fL (9.4-12.3) 08/23/20 14:00 Immature Gran % (Auto) 0.4 % (0.0-0.4) 08/23/20 14:00 Neut % (Auto) 53.5 % (45-73) 08/23/20 14:00 Lymph % (Auto) 36.7 % (20-40) 08/23/20 14:00 Ogle % (Auto) 8.4 % (2-11) 08/23/20 14:00 Eos % (Auto) 0.5 % (0-4) 08/23/20 14:00 Baso % (Auto) 0.5 % (0-2) 08/23/20 14:00 Lymph # (Auto) 2.8 X10*3/uL (1.2-4.9) 08/23/20 14:00 Ogle # (Auto) 0.6 X10*3/uL (0.1-1.2) 08/23/20 14:00 Eos # (Auto) 0.0 X10*3/uL (0.0-0.4) 08/23/20 14:00 Baso # (Auto) 0.0 X10*3/uL (0.0-0.2) 08/23/20 14:00 Abs Immat Gran (auto) 0.03 X10*3/uL (0.00-0.03) 08/23/20 14:00 Absolute Neuts (auto) 4.0 X10*3/uL (2.0-8.3) 08/23/20 14:00 Absolute Nucleated RBC 0.000 X10*3/uL (0.0-0.012) 08/23/20 14:00 Nucleated RBC % (auto) 0.0 /100WBC (0.0-0.2) 08/23/20 14:00 Sodium 141 mmol/L (135-145) 05/23/20 13:09 Potassium 3.9 mmol/l (3.3-5.1) 05/23/20 13:09 Chloride 103 mmol/L (96-108) 05/23/20 13:09 Carbon Dioxide 29 mmol/L (22-29) 05/23/20 13:09 Anion Gap 13 (12-20) 05/23/20 13:09 BUN 38 mg/dL (9-16) H 05/23/20 13:09 Creatinine 0.80 mg/dL (0.5-1.4) 05/23/20 13:09 Estim Creat Clear Calc 49.0 05/23/20 13:09 Estimated GFR > 60 05/23/20 13:09 Random Glucose 134 mg/dL (60-115) H 05/23/20 13:09 Calcium 9.3 mg/dL (8.4-10.2) 05/23/20 13:09 Total Bilirubin 0.7 mg/dL (0.0-1.0) 05/23/20 13:09 AST 27 U/L (5-31) 05/23/20 13:09 ALT 40 U/L (0-31) H 05/23/20 13:09 Alkaline Phosphatase 70 U/L (39-117) 05/23/20 13:09 Total Protein 6.0 g/dL (6.5-8.0) L 05/23/20 13:09 Albumin 4.2 g/dL (3.5-5.0) 05/23/20 13:09 Progress Note: A/P (1) Large granular lymphocytic leukemia Status: Chronic Assessment and plan: 1. 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 Peripheral blood flow cytometry for T-cell receptor gene rearrangement was positive.(08/31/18) On cyclosporin 5 mg/kilo (200mg) administered b.i.d. since June 2019. Goal therapeutic level would be 200-400 NG/ML. She is now on prednisone 15 mg every day. Dose of cyclosporin has been decreased to 200 mg once a day. She is on prednisone 10 mg once a day. She has required intermittent blood transfusion. 2. Tongue lesion /Lichen planus. She is on prednisone 10 mg daily. 3. Delirium. Although she is able to talk in full sentences, she is quite confused. She lives in independent facility, [facility], and is unable to take care of herself. She had similar symptoms in the past with a UTI. She appears dehydrated. She is being sent to ED for admission. I discussed her care with her brother who is agreeable with the plan. - Time Spent With Patient Time Spent with Patient (in minutes): 15
[2021-02-12 12:21] LABS: Glucose Urine UA NEG (NEG); Leukocyte Esterase Urine 1+ (NEG); Nitrite Urine NEG (NEG); Specific Gravity - Urine 1.015 (1.005-1.025); UACC Culture Trigger YES; Urine Blood 1+ (NEG); Urine Ketones NEG (NEG); Urine Protein 1+ MG/DL (NEG-TRACE)
[2021-02-12 12:24] LABS: Appearance Urine HAZY; Color Urine DARK YELLOW
[2021-02-12 12:33] LABS: Amorphous Sediment Urine 2+ /LPF; Bacteria Urine TRACE /LPF; UACC CULT YES
== END 2021-04-17 15:43 | disposition home or self-care (01) ==
LOC: HO.ONC 11:00
PROVIDERS: PCP Family Medicine; Visit Provider Internal Medicine
DX: C91.Z0 Other lymphoid leukemia not having achieved remission (principal); D50.9 Iron deficiency anemia, unspecified; L43.9 Lichen planus, unspecified; R41.0 Disorientation, unspecified; Z79.52 Long term (current) use of systemic steroids; Z79.899 Other long term (current) drug therapy
CPT/HCPCS: 36415; 36430; 80053; 81001; 85025; 86850; 86900; 86901; 86923; 87086; 99213; 99214; P9016; Q3014

== ENCOUNTER 2021-02-12 12:51 | Emergency (ER) | payer MEDICARE, SELFPAY ==
--- NOTE | ~2021-02-12 | CT_ITS ---
EXAMINATION: CT HEAD WITHOUT CONTRAST CLINICAL INFORMATION: Altered mental status COMPARISON: CT head September 25, 2019 TECHNIQUE: Contiguous axial imaging was performed from the skull base to vertex without intravenous administration of contrast. Coronal and sagittal reformatted images are performed at the CT scanner. [This CT examination was performed using dose optimization techniques as appropriate, variously including the following: *Automated exposure control *Adjustment of mA and/or kV according to patient size (this includes techniques or standardized protocols for targeted exams where dose is matched to indication/reason for exam; i.e. extremities or head) *Use of iterative reconstruction technique] DLP: 747 mGy-cm. FINDINGS: There is no evidence of acute intracranial hemorrhage or territorial infarction. No abnormal mass-effect or midline shift is seen. Nuñez to white matter differentiation is well preserved. No extra-axial fluid collections are identified. There is generalized global volume loss. There is mild prominence of the ventricles and the sulci . There is mild hypodensity of the periventricular white matter due to chronic small vessel ischemic disease. There are vascular calcifications of the internal carotid arteries bilaterally. There is no osseous abnormality. Retention cyst inferior left maxillary sinus. Mastoid air cells and middle ear cavities are normally aerated. CT/CT head/brain wo con IMPRESSION: No acute intracranial pathology.
--- NOTE | ~2021-02-12 | CT_ITS ---
EXAMINATION: CT ANGIOGRAM OF THE CHEST WITH AND WITHOUT CONTRAST (CT PULMONARY ANGIOGRAM FOR PE) CLINICAL INFORMATION: Reason for Exam elevated troponin r/o PE, weakness COMPARISON: Chest radiographs 02/12/2021, 08/03/2020, CT chest with contrast 08/20/2018. TECHNIQUE: Prior to contrast administration, noncontrast localization images were obtained. Subsequently, multidetector volumetric imaging was performed from the thoracic inlet to below the diaphragms following the administration of 55 mL Omnipaque 350 intravenous contrast. Sagittal, coronal, and MIP oblique sagittal reformatted images were obtained on the CT workstation, uploaded to PACS, and reviewed. This CT examination was performed using dose optimization techniques as appropriate, variously including the following: *Automated exposure control *Adjustment of mA and/or kV according to patient size (this includes techniques or standardized protocols for targeted exams where dose is matched to indication/reason for exam; i.e. extremities or head) *Use of iterative reconstruction technique Total exam dose-length product 239 mGy-cm FINDINGS: QUALITY OF STUDY/CONTRAST BOLUS: Satisfactory. PULMONARY ARTERIES: No central or segmental pulmonary emboli. THORACIC AORTA: No aneurysm or dissection. LUNG: There is no lobar or segmental airspace consolidation. There is some accentuated subpleural lines at the posterior bases with disc atelectasis. Some fine linear stranding lateral right upper lobe. No mass. PLEURA: No pneumothorax. No pleural thickening or pleural effusion. MEDIASTINUM: There is chronic left thyroid mass extending into the superior mediastinum of similar size. Measurements are approximately 5.6 x 5.7 x 8.8 cm. Prior exam measurements are remeasured in same orientation: 5.7 x 6.2 x 8.9 cm. There is rightward bowing of the trachea air column with saber-sheath contour. The width of the trachea at the level of the following measures 1.2 cm compared with 1.[address] There is no hilar or mediastinal adenopathy. No pericardial effusion or buckling of the septum. CHEST WALL/AXILLA: No axillary or internal mammary lymphadenopathy. OSSEOUS STRUCTURES: No acute or suspicious osseous abnormality. UPPER ABDOMEN: Unremarkable. No reflux of contrast into the hepatic veins to suggest elevated right heart pressures. CT/CT angio chest PE protocol IMPRESSION: 1. No pulmonary embolism. No thoracic aortic dissection. 2. Chronic left thyroid mass extending to superior mediastinum 5.6 x 5.7 x 8.8 cm in length, similar to CT chest 08/20/2018. 3. No pneumothorax, airspace consolidation, or effusion. VTE: negative
--- NOTE | ~2021-02-12 | XR_ITS ---
EXAMINATION: XR CHEST CLINICAL INFORMATION: Weakness COMPARISON: Chest 08/03/2020 TECHNIQUE: Frontal view of the chest was obtained. FINDINGS: The lungs are well-expanded and clear of acute process. The heart size and pulmonary vascularity is normal. There is a superior mediastinal large soft tissue mass likely goiter. This deviates the trachea to the right. Mild degenerative disc changes left glenohumeral joint. No gross bony abnormality seen. XR/XR chest 1V IMPRESSION: Large superior mediastinal soft tissue mass likely goiter deviating trachea to the right. The lungs are clear.
[2021-02-12 13:00] VITALS: BP 143/88; PULSE 79; RESP 18; O2SAT 95; BMI 50.8
[2021-02-12 13:01] VITALS: BP 143/88; PULSE 80; RESP 16; TEMP 36.7; O2SAT 94
--- NOTE | 2021-02-12 13:04 | ED_ITS ---
HPI - Altered Mental Status General Chief Complaint: Altered Mental Status Stated Complaint: AMS Time Seen by Provider: 02/12/21 13:04 Source: patient and old records reviewed Mode of arrival: ambulatory (from oncology clinic) Limitations: altered mental status History of Present Illness complaint: weakness Onset (ago): day(s) (1) Timing confirmed by: family member and other (sent by oncology clinic for weakness possible confusion seems off) Severity: mild Consistency of symptoms: waxing and waning Context: other (recent UTI treated with levofloxacin) Associated symptoms: denies other symptoms Related Data Home Medications Medication Instructions Recorded Confirmed multivitamin 1 tab PO DAILY 05/23/20 02/12/21 prednisone 10 mg PO DAILY 05/23/20 02/12/21 amlodipine 2.5 mg PO DAILY 08/23/20 02/12/21 escitalopram oxalate 5 mg PO DAILY 12/27/20 02/12/21 lidocaine HCl [Lidocaine Viscous] 15 ml PO QID 12/27/20 02/12/21 clobetasol 1 appl TOPICAL TID 02/12/21 02/12/21 cyclosporine modified 200 mg PO DAILY 02/12/21 Previous Rx's Medication Instructions Recorded metoprolol succinate 25 mg PO DAILY #90 tab 10/20/20 losartan 100 mg PO DAILY #30 tab 11/24/20 hydrochlorothiazide 25 mg PO QAM #30 tab 12/15/20 oxycodone 5 mg PO Q6H PRN #60 cap 01/03/21 acyclovir 400 mg PO TID #30 tab 01/08/21 alprazolam 0.25 mg PO BEDTIME PRN #30 tab 01/12/21 Allergies Allergy/AdvReac Type Severity Reaction Status Date / Time Sulfa (Sulfonamide Allergy Intermediate RASH,HAS Verified 07/31/20 10:23 Antibiotics) HAD [SULFA (SULFONAMIDE RECENTLY ANTIBIOTICS)] WITHOUT REACTION Review of Systems Review of Systems: Constitutional : No Weight loss, No Fever, No Chills, No Fatigue, No Malaise ENT/Mouth : No sore throat, No Rhinorrhea Eyes: No Eye Pain, No Swelling, No Redness Cardiovascular : No Chest Pain, No SOB, No Dyspnea on Exertion, No Orthopnea, No Edema, No Palpitations Respiratory : No Cough, No Sputum, No Wheezing Gastrointestinal : No Nausea, No Vomiting, No Diarrhea, No Constipation, No abdominal Pain, No Hematochezia, No Melena Genitourinary : No Dysuria, No Urinary Frequency, No Hematuria, Musculoskeletal : No joint pain, No Myalgias, No Joint Swelling Skin : No Skin Lesions, No rash Neuro : No Weakness, No Numbness, No Dizziness, No Headache Psych : No Anxiety/Panic, No Depression Heme/Lymph: No Bruising, No Bleeding,No Lymphadenopathy Endocrine : No Polyuria, No Polydipsia SHE DENIES ANY ISSUES TO ME All other systems reviewed and are negative [facility] Past Medical History Attestation statement: The following information was validated with the patient. Medical History Ankle fracture, left Basal cell carcinoma Cancer Goiter Hypertension Knee pain, left Oral mucosal lesion Osteoarthritis Osteoarthritis of left knee Surgical History History of appendectomy History of bilateral knee replacement Family History Family History (Updated 11/28/20 @ 14:02 by Sarah Valles) Father H/O leukemia H/O malignant mesothelioma H/O: hypertension Mother H/O: hypertension Social History Social History Alcohol intake: never Patient Tobacco Use Status: Never used Tobacco Second Hand Smoke Exposure: No Use of substances other than those prescribed or required for medical reasons: No Advance Directives: Yes Advance Directives on File: Yes Advance Directives Date on File: 02/12/21 Physical Exam Vital Signs: Vital Signs: Last Vital Signs Temp 98.1 F 02/12/21 15:56 Pulse 89 02/12/21 15:56 Resp 16 02/12/21 15:56 BP 151/58 H 02/12/21 15:56 Pulse Ox 95 02/12/21 15:56 Body Mass Index 50.8 Appearance: Alert. Oriented X2.5 (initially confused to the month). No acute distress. Eyes: Pupils equal, round and reactive to light. ENT: Pharynx normal. Neck: Normal inspection. Neck supple. CVS: Normal heart rate and rhythm. Pulses normal. Respiratory: No respiratory distress. Breath sounds normal. Abdomen: Soft and nontender. Skin: Skin warm and dry. Normal skin color. Normal skin turgor. Extremities: trace pitting lower extremity edema. No calf ttp Neuro: Oriented X 2.5 (initially confused to the month). No motor deficit. No sensory deficit. Course Course Course Narrative: patient has no complaints at this time no CP/SOB BP stable no reason for elevated troponin - given hx will obtain CTA to r/o PE CTA negative for PE chronic thyroid mass does not want surgery repeat trop flat - no CP, nonischemic EKG doubt ACS I do not have a significant enough reason to admit the patient will involved CM/PT and family, patient ate her full meal here while in ED Patient placed in physician observation at 625pm. The indication for observation is that the patient needs more time to see if her weakness improves and if she requires a higher level of care than assisted living facility - PT and CM involved. At this time the patient is well developed well nourished, lungs clear, CV RRR, abd nontender, neuro is intact. this could be residual from antibiotics or recent UTI - signed out pending CM input in AM and repeat labs MDM - Altered Mental Status MDM Narrative Medical decision making narrative: 80 yo female with hx of lymphoma comes in today with c/o confusion in oncology office - something seemed off, just treated for UTI - her labs and urine today do show but dehdyration mild but her urine appears better she denies symptoms to me on exam she is unsure about the month but knows the season and every other orientation questions, will hydrate her obtain CXR, CT head, involve CM, will reassess once she has had medical workup Lab Data Labs: Lab Results 02/12/21 02/12/21 02/12/21 Range/Units 14:06 14:06 14:06 PT (9.9-13.0) SEC INR (0.9-1.1) APTT (24.1-38.0) SEC Lactic Acid 1.0 (0.5-2.0) mmol/L Magnesium 1.8 (1.6-2.6) mg/dL Troponin I High Sens (<3.5-17.0) ng/L TSH (0.32-4.0) uIU/mL COVID-19 (JULIANO) Negative (Negative) COVID-19 Clin Com See Note 02/12/21 02/12/21 02/12/21 Range/Units 14:06 14:06 15:06 PT 13.0 (9.9-13.0) SEC INR 1.1 (0.9-1.1) APTT 32.3 (24.1-38.0) SEC Lactic Acid (0.5-2.0) mmol/L Magnesium (1.6-2.6) mg/dL Troponin I High Sens 116.3 H* (<3.5-17.0) ng/L TSH 0.43 (0.32-4.0) uIU/mL COVID-19 (JULIANO) (Negative) COVID-SuppreMol 02/12/21 Range/Units 17:10 PT (9.9-13.0) SEC INR (0.9-1.1) APTT (24.1-38.0) SEC Lactic Acid (0.5-2.0) mmol/L Magnesium (1.6-2.6) mg/dL Troponin I High Sens 105.9 H* (<3.5-17.0) ng/L TSH (0.32-4.0) uIU/mL COVID-19 (JULIANO) (Negative) COVID-SuppreMol ECG Data ECG #1: Attestation: I personally reviewed and interpreted this ECG as follows: ECG interpretation date: 02/12/21 ECG interpretation time: 14:40 Interpretation: Rate: 74 Rhythm: NSR [place]: left, LVH Normal P waves. Normal FERNANDO. Normal QRS complex. ST T wave : normal nonspecific qTC: normal prior studies: no acute ischemia unchanged 2020 The study has been interpreted contemporaneously by me. . Discharge Plan Discharge Clinical Impression: Elevated BUN, Weakness, Acute dehydration Prescriptions: No Action multivitamin Tablet 1 tab PO DAILY RF: 0 prednisone 10 mg Tablet 10 mg PO DAILY RF: 0 amlodipine 2.5 mg tablet 2.5 mg PO DAILY RF: 0 metoprolol succinate 25 mg Tablet Extended Release 24 Hr 25 mg PO DAILY Qty: 90 RF: 6 losartan 100 mg Tablet 100 mg PO DAILY Qty: 30 RF: 3 hydrochlorothiazide 25 mg Tablet 25 mg PO QAM Qty: 30 RF: 4 lidocaine HCl [Lidocaine Viscous] 2 % solution 15 ml PO QID RF: 0 escitalopram oxalate 5 mg tablet 5 mg PO DAILY RF: 0 oxycodone 5 mg Capsule 5 mg PO Q6H PRN (Reason: Pain) Qty: 60 RF: 0 acyclovir 400 mg Tablet 400 mg PO TID Qty: 30 RF: 0 alprazolam 0.25 mg Tablet 0.25 mg PO BEDTIME PRN (Reason: Insomnia) Qty: 30 RF: 0 clobetasol 0.05 % gel 1 appl topical TID RF: 0 cyclosporine modified 100 mg capsule 200 mg PO DAILY RF: 0
--- NOTE | 2021-02-12 13:08 | ECG_ITS ---
Test Reason : ALTERED MENTAL Blood Pressure : / mmHG Vent. Rate : 074 BPM Atrial Rate : 074 BPM P-R Int : 166 ms QRS Dur : 120 ms QT Int : 402 ms P-R-T Axes : 066 -34 031 degrees QTc Int : 446 ms Normal sinus rhythm Left axis deviation Left ventricular hypertrophy with QRS widening Lateral infarct , age undetermined Abnormal ECG When compared with ECG of 03-AUG-2020 16:42, No significant change was found Referred By: Tiff Taylor Electronically Signed By:BIJAN RUIZ MD
--- NOTE | 2021-02-12 13:52 | PC.NURSE ---
pt a/o x 3 no sob/shruthi. speaks in full sentences.
[2021-02-12 14:00] VITALS: BP 149/65; PULSE 78; RESP 15; O2SAT 94
[2021-02-12] MEDS: 0.9 % Sodium Chloride 1,000 ML 999 ML IVCONT (14:00)
[2021-02-12 14:29] LABS: COVID-19 Test Negative (Negative); IDNOW Serial# 9DD0AD1C
[2021-02-12 14:48] LABS: Magnesium 1.8 mg/dL (1.6-2.6)
[2021-02-12 14:55] LABS: Troponin-I High Sensitivity 116.3 ng/L (<3.5-17.0)
[2021-02-12 15:07] LABS: TSH reflex Free T4 0.43 uIU/mL (0.32-4.0)
[2021-02-12 15:16] LABS: INTERNATIONAL NORM RATIO 1.1 (0.9-1.1)
[2021-02-12 15:19] LABS: Partial Thromboplastin Time 32.3 SEC (24.1-38.0)
--- NOTE | 2021-02-12 15:40 | PHA.MEDREC ---
Pharmacy Consult ? Medication Reconciliation Pharmacy has completed the medication reconciliation. Patient is poor historian, can't recall latest dose of cyclosporine.
[2021-02-12 15:56] VITALS: BP 151/58; PULSE 89; RESP 16; TEMP 36.7; O2SAT 95
[2021-02-12] MEDS: iohexoL 350 MG/ML 100 ML INFUS..BTL IV (16:01)
[2021-02-12 17:44] LABS: Troponin-I High Sensitivity 105.9 ng/L (<3.5-17.0)
--- NOTE | 2021-02-12 19:10 | MHC.CM.ED ---
CM met with patient. During interview, patient at times rambled and got off topic, at times unable to answer questions, and at times tearful about 's passing. Unable to tell CM how long her has been gone. Unable to tell CM how often her WAFER CUTTER come to help her. Unable to tell CM what she does about food during the day, as she only gets one meal at [place]. Pt is able to tell CM that she had 2 homes, one on the [facility] and one in [place]. Was able to tell CM that she sold her home in [place]; that it had 2 floors; and that he in the house. Pt is able to tell CM that the house on the [facility] had trouble being sold, something about land, but was unable to elaborate. Pt tells CM that she has been sick since moving to [place], and seems to equate moving there with her being ill. Pt lives in independent living at [facility]. Pt has a lifeline, a WAFER CUTTER and uses a walker. Transportation is by friends and family. Pt c/o worsening knee pain. Medical work-up negative. CM spoke with HCP/brother, Andrew Oviedo ([phone]), who tells CM that his sister has been increasingly confused over the past 3 days, refusing to eat, drinking Ensure and GatorAid. PCP is Dr. Silvina Langford in [place]. States she has a privately paid WAFER CUTTER, Friday-Friday 8-12noon. States WAFER CUTTER cooks breakfast for pt, and she has a meal provided, which she hasn't eaten lately. Andrew states he believes his sister adjusted well to the move to [place] and has only been this confused the last time she had a UTI. Andrew states that pt in , her [place] home sold 2 months ago and the [facility] sale is pending. Andrew states he is unsure if patient is taking her medications correctly, as she has been resistant to the WAFER CUTTER helping her with medications. Andrew states pt has been using the TV remote to try and make phone calls, and the phone to adjust the TV. This is all very new for her. Dr. Taylor aware of above. Will repeat labs in am and ordered a PT evaluation. Dr. Taylor consulted the hospitalist, who does not recommend admission at this time.CM will follow for d/c needs.
[2021-02-12] MEDS: Acetaminophen 325 MG TABLET 650 MG PO (20:18)
--- NOTE | 2021-02-12 20:21 | PC.NURSE ---
Pt moved into hospital bed for comfort. Pt is tearful, states she wants to go home and is upset her brother reports she is confused. Pt frequently trails off in conversation w/out answering the question but is redirectable. Po fluids encouraged.
[2021-02-12 22:56] VITALS: BP 165/98; PULSE 73; RESP 17; TEMP 36.7; O2SAT 99
--- NOTE | 2021-02-13 03:00 | PC.NURSE ---
PATIENT HAVING AN EPISODE OF INCONTIENCE, PATIENT CLEANED UP AND BEDDING CHANGED. PATIENT HAS SMALL OPEN AREA TO BUTTOCK, BARRIER CREAM IS APPLIED. AWAITING CASE MANAGEMENT IN THE MORNING.
[2021-02-13 06:55] VITALS: BP 136/56; PULSE 74; RESP 16; TEMP 36.6; O2SAT 98
[2021-02-13 07:16] VITALS: BP 136/56; PULSE 74; O2SAT 98
[2021-02-13 08:48] LABS: Basophils Percent Auto 0.6 % (0-2); Hemoglobin 8.3 g/dl (12.0-16.0); MANUAL DIFF FLAG SCAN; Mean Corpuscular Volume 97.2 fL (80-98); Monocytes Absolute Auto 0.4 X10*3/uL (0.1-1.2); Monocytes Percent Auto 6.8 % (2-11); PLT CLUMP 1; Red Cell Distribution Width 14.7 % (11.0-16.0); SCAN SMEAR FLAG 1
[2021-02-13 08:50] LABS: Eosinophils Absolute Auto 0.1 X10*3/uL (0.0-0.4); Eosinophils Percent Auto 1.9 % (0-4); Hematocrit 24.4 % (37-47); Imm Gran Abs Auto 0.04 X10*3/uL (0.00-0.03); Imm Gran Pct Auto 0.8 % (0.0-0.4); Lymphocytes Percent Auto 18.6 % (20-40); Mean Corpuscular Hemoglobin 33.1 pg (27.0-33.0); Neutrophils Absolute Auto 3.8 X10*3/uL (2.0-8.3); Neutrophils Percent Auto 71.3 % (45-73); Red Blood Count 2.51 X10*6/uL (4.20-5.50); White Blood Count 5.3 X10*3/uL (4.8-10.8)
[2021-02-13 09:11] LABS: Anion Gap 10 (12-20); Blood Urea Nitrogen 27 mg/dL (9-16); Carbon Dioxide 31 mmol/L (22-29); Chloride 106 mmol/L (96-108); Creatinine Clr Calc Pharmacy 74.1; Estimated Glomerular Filt Rate > 60; Glucose Random 138 mg/dL (60-115); Potassium 4.1 mmol/L (3.3-5.1); SLIDE REVIEW VERIFIED; Sodium 143 mmol/L (135-145)
[2021-02-13 10:26] VITALS: BP 141/65; PULSE 76
[2021-02-13] MEDS: Losartan Potassium 50 MG TABLET 100 MG PO (10:26)
[2021-02-13] MEDS: hydroCHLOROthiazide 25 MG TABLET PO (10:26)
[2021-02-13 10:27] VITALS: BP 141/65; PULSE 78
[2021-02-13] MEDS: Escitalopram Oxalate 5 MG TABLET PO (10:27)
[2021-02-13] MEDS: Metoprolol Succinate ER 25 MG TAB.ER.24H PO (10:27)
[2021-02-13] MEDS: amLODIPine Besylate 2.5 MG TABLET PO (10:27)
[2021-02-13] MEDS: Multivitamin TABLET 1 TAB PO (10:27)
[2021-02-13] MEDS: predniSONE 10 MG TABLET PO (10:27)
[2021-02-13 11:21] VITALS: BP 150/67; PULSE 79; RESP 16; O2SAT 94
--- NOTE | 2021-02-13 12:22 | MHC.CM.ED ---
Patient remains in ER. Physical therapy eval completed. Short term rehab is recommended. Spoke with patient's brother, Andrew, via telephone. Andrew is not willing to make short term rehab choices at this time because patient is mad at him for bringing her to the ER. Met with patient in regards to discharge planning. Patient is declining short term rehab at this time. Attempted to provide emotional support and encouragement for patient to consider short term rehab. Patient still wants to return home. She has been active with [facility] in the past. Referral made via [employer]. Patient's brother will pick patient up around 3pm. Ai PORTER aware. Continue to monitor for d/c needs.
== END 2021-02-13 14:44 | disposition home or self-care (01) ==
PROVIDERS: Physician Assistant; Emergency Provider Emergency Medicine; PCP Family Medicine
DX: E86.0 Dehydration (principal); R79.89 Other specified abnormal findings of blood chemistry; R53.1 Weakness; I10 Essential (primary) hypertension; Z85.72 Personal history of non-Hodgkin lymphomas; Z79.899 Other long term (current) drug therapy; Z20.822 Contact with and (suspected) exposure to COVID-19
CPT/HCPCS: 36415; 70450; 71045; 71275; 80048; 82550; 83605; 83735; 84443; 84484; 85025; 85610; 85730; 87040; 87635; 93005; 97162; 99285; Q9967

== ENCOUNTER 2021-02-20 12:44 | Inpatient (IN) | payer MEDICARE, SELFPAY ==
--- NOTE | ~2021-02-20 | XR_ITS ---
EXAMINATION: XR CHEST CLINICAL INFORMATION: Confusion COMPARISON: CT chest 02/12/2021 and chest radiograph 02/12/2021 and 08/03/2020 TECHNIQUE: Frontal view of the chest was obtained. FINDINGS: Since the prior study there's been no significant interval change. Once again noted is a mediastinal mass deviating the trachea to the right shown on CT scan to be thyroid. Heart size normal. Left basilar atelectasis is seen. No consolidations lung masses or pleural effusions seen. Degenerative changes again seen in both shoulders. XR/XR chest 1V IMPRESSION: No acute intrathoracic disease. Large thyroid goiter unchanged.
--- NOTE | ~2021-02-20 | CT_ITS ---
EXAMINATION: CT HEAD WITHOUT CONTRAST CLINICAL INFORMATION: Confusion. COMPARISON: Most recent CT head dated 02/12/2021. TECHNIQUE: Contiguous axial imaging was performed from the skull base to vertex without intravenous administration of contrast. This CT examination was performed using dose optimization techniques as appropriate, variously including the following: *Automated exposure control. *Adjustment of mA and/or kV according to patient size (this includes techniques or standardized protocols for targeted exams where dose is matched to indication/reason for exam; i.e. extremities or head). *Use of iterative reconstruction technique. DLP: 681 mGy-cm FINDINGS: There is no evidence of acute intracranial hemorrhage or territorial infarction. No abnormal mass effect or midline shift is seen. [id number] matter differentiation is well preserved. No extra-axial fluid collections are identified. The ventricles are normal in size. Prominence of the frontal sulci, consistent with frontal atrophy, unchanged. Mild hypoattenuation of the periventricular white matter, unchanged and consistent with chronic microvascular ischemic disease. The osseous structures and soft tissues are normal. The mastoid air cells and visualized portions of the paranasal sinuses are well aerated. CT/CT head/brain wo con IMPRESSION: No acute intracranial hemorrhage or mass effect. No significant interval change.
[2021-02-20 13:15] VITALS: BP 111/45; PULSE 83; RESP 18; O2SAT 95; BMI 23.3
[2021-02-20 17:13] VITALS: BP 141/62; PULSE 67; RESP 18; O2SAT 94
--- NOTE | 2021-02-20 17:18 | ED.GENADULT ---
HPI - General Adult General Chief complaint: Weakness Stated complaint: Weakness Time Seen by Provider: 02/20/21 17:09 Source: patient and family Mode of arrival: ambulatory Limitations: no limitations History of Present Illness HPI narrative: 80-year-old female came in for evaluation of generalized weakness and failure to thrive. This is 80-year-old female with history of lymphocytic leukemia, chronic osteoarthritis mostly on the left knee, lives home alone with assistant professor of nursing and VNA, patient living independently mostly, patient noticed to be confused, patient talk her medication for the next 3 days by mistake. Patient had similar situation when she had a UTI, family do not think the patient can care for herself. Related Data Home Medications Medication Instructions Recorded Confirmed multivitamin 1 tab PO DAILY 05/23/20 02/12/21 prednisone 10 mg PO DAILY 05/23/20 02/12/21 amlodipine 2.5 mg PO DAILY 08/23/20 02/12/21 escitalopram oxalate 5 mg PO DAILY 12/27/20 02/12/21 lidocaine HCl [Lidocaine Viscous] 15 ml PO QID 12/27/20 02/12/21 clobetasol 1 appl TOPICAL TID 02/12/21 02/12/21 cyclosporine modified 200 mg PO DAILY 02/12/21 Previous Rx's Medication Instructions Recorded metoprolol succinate 25 mg PO DAILY #90 tab 10/20/20 losartan 100 mg PO DAILY #30 tab 11/24/20 hydrochlorothiazide 25 mg PO QAM #30 tab 12/15/20 oxycodone 5 mg PO Q6H PRN #60 cap 01/03/21 acyclovir 400 mg PO TID #30 tab 01/08/21 alprazolam 0.25 mg PO BEDTIME PRN #30 tab 02/19/21 Allergies Allergy/AdvReac Type Severity Reaction Status Date / Time Sulfa (Sulfonamide Allergy Intermediate RASH,HAS Verified 02/20/21 13:14 Antibiotics) HAD [SULFA (SULFONAMIDE RECENTLY ANTIBIOTICS)] WITHOUT REACTION Review of Systems Review of Systems: All other systems are reviewed and are negative Constitutional: Reports as per HPI and Reports no additional constitutional complaints Eyes: Reports as per HPI and Reports no additional eye complaints Reports system reviewed and no additional complaints, except as documented Cardiovascular: Reports as per HPI and Reports no additional cardiovascular complaints Respiratory: Reports as per HPI and Reports no additional respiratory complaints Gastrointestinal: Reports as per HPI and Reports no additional gastrointestinal complaints Genitourinary: Reports no additional female genitourinary complaints Musculoskeletal: Reports no additional musculoskeletal complaints Skin/Breast: Reports system reviewed and no additional complaints, except as docu Psychiatric: Reports no additional psychiatric complaints Endocrine: Reports no additional endocrine complaints Hematologic/Lymphatic: Reports no additional hematologic/lymphatic complaints Allergic/Immunologic: Reports no additional allergic/immunologic complaints Reports system reviewed and no additional complaints, except as documented and Reports Abnormal speech present [facility] Past Medical History Medical History Ankle fracture, left Basal cell carcinoma Cancer Goiter Hypertension Knee pain, left Oral mucosal lesion Osteoarthritis Osteoarthritis of left knee Surgical History History of appendectomy History of bilateral knee replacement Family History Family History Father H/O leukemia H/O malignant mesothelioma H/O: hypertension Mother H/O: hypertension Social History Social History Alcohol intake: never Patient Tobacco Use Status: Never used Tobacco Second Hand Smoke Exposure: No Use of substances other than those prescribed or required for medical reasons: No Advance Directives: Yes (HCP) Advance Directives on File: Yes Advance Directives Date on File: 02/12/21 Physical Exam Vital Signs: Vital Signs: Last Vital Signs Temp 98.2 F 02/20/21 19:13 Pulse 64 02/20/21 19:13 Resp 16 02/20/21 19:13 BP 114/49 L 02/20/21 19:13 Pulse Ox 98 02/20/21 19:13 Body Mass Index 23.3 Vital signs have been reviewed as appeared to be correct. Blood pressure normal. Heart rate normal. Respiration rate normal. Temperature normal. Oxygen saturation normal. Appearance: Alert. No acute distress. Head: Normal external exam. Normocephalic. Atraumatic. No Steele signs noted. No raccoon eyes noted Eyes: PERRLA. EOMI. Conjunctiva and sclera normal. Eyelids normal. ENT: TM's Normal. Pharynx normal. Uvula midline. Moist mucous membranes. No trismus noted. No drooling noted. No muffled voice noted. Neck: Normal inspection. Neck supple. FROM. No adenopathy. Thyroid Normal. No meningeal signs. No neck mass noted. CVS: Normal heart rate and rhythm. Heart sound normal. No murmurs noted. Pulses normal throughout. Respiratory: No respiratory distress. Painless inspiration. Breath sounds normal. No wheezes/rales/rhonchi noted. Chest nontender. No accessory muscle usage noted or decreased air movement noted. Abdomen: Soft and nontender. Bowel sounds normal in all 4 quadrants. No distention noted. No organomegaly noted. No visible injury noted. Back: No CVA tenderness. Full range of motion noted. Skin: Skin warm and dry. Normal skin color. Normal skin turgor. No rashes/lesions/lacerations noted. Extremities: No lower extremity edema. Extremities exhibit normal range of motion. Extremities nontender. Neuro: Oriented X 1 (not to time or place or event) No motor deficit. No sensory deficit. Reflexes normal. Course Course Course Narrative: Assessment and plan. 80-year-old female with history of lymphocytic leukemia patient been home living independently, for the last 3 days family noted that patient is more confused unable to care for herself, patient to extra medication by mistake, patient found to be anemic with no source of bleeding, also acute renal insufficiency, the case discussed with Dr. Bowles who recommended to transfuse the patient 2 units and admit the patient. Medical Decision Making Lab Data Lab results reviewed: Yes I reviewed the patient's lab results. Result diagrams: 02/20/21 17:36 02/20/21 17:36 Labs: Lab Results 02/20/21 02/20/21 02/20/21 Range/Units 17:36 17:36 17:36 WBC 4.8 (4.8-10.8) X10*3/uL RBC 2.15 L (4.20-5.50) X10*6/uL Hgb 7.0 L* (12.0-16.0) g/dl Hct 20.9 L* (37-47) % MCV 97.2 (80-98) fL MCH 32.6 (27.0-33.0) pg MCHC 33.5 (31.0-35.0) g/dl RDW 14.6 (11.0-16.0) % Plt Count 231 (160-400) X10*3/uL MPV 12.2 (9.4-12.3) fL Immature Gran % (Auto) 1.7 H (0.0-0.4) % Neut % (Auto) 80.8 H (45-73) % Lymph % (Auto) 13.8 L (20-40) % [place] % (Auto) 3.5 (2-11) % Eos % (Auto) 0.0 (0-4) % Baso % (Auto) 0.2 (0-2) % Lymph # (Auto) 0.7 L (1.2-4.9) X10*3/uL [place] # (Auto) 0.2 (0.1-1.2) X10*3/uL Eos # (Auto) 0.0 (0.0-0.4) X10*3/uL Baso # (Auto) 0.0 (0.0-0.2) X10*3/uL Abs Immat Gran (auto) 0.08 H (0.00-0.03) X10*3/uL Absolute Neuts (auto) 3.9 (2.0-8.3) X10*3/uL Absolute Nucleated RBC 0.000 (0.0-0.012) X10*3/uL Nucleated RBC % (auto) 0.0 (0.0-0.2) /100WBC Sodium 141 (135-145) mmol/L Potassium 4.6 (3.3-5.1) mmol/L Chloride 103 (96-108) mmol/L Carbon Dioxide 26 (22-29) mmol/L Anion Gap 17 (12-20) BUN 38 H (9-16) mg/dL Creatinine 1.81 H (0.5-1.4) mg/dL Estim Creat Clear Calc 18.9 Estimated GFR 27 Random Glucose 204 H D (60-115) mg/dL Calcium 9.1 (8.4-10.2) mg/dL Total Bilirubin 0.6 (0.0-1.0) mg/dL Direct Bilirubin 0.4 (0.0-0.5) mg/dL AST 31 (5-31) U/L ALT 47 H (0-31) U/L Alkaline Phosphatase 67 (39-117) U/L Total Protein 5.6 L (6.5-8.0) g/dL Albumin 3.7 (3.5-5.0) g/dL Lipase 10 (8-78) U/L Stool Occult Blood (NEGATIVE) COVID-19 (JULIANO) Negative (Negative) COVID-19 Clin Com See Note 02/20/21 Range/Units 19:14 WBC (4.8-10.8) X10*3/uL RBC (4.20-5.50) X10*6/uL Hgb (12.0-16.0) g/dl Hct (37-47) % MCV (80-98) fL MCH (27.0-33.0) pg MCHC (31.0-35.0) g/dl RDW (11.0-16.0) % Plt Count (160-400) X10*3/uL MPV (9.4-12.3) fL Immature Gran % (Auto) (0.0-0.4) % Neut % (Auto) (45-73) % Lymph % (Auto) (20-40) % [place] % (Auto) (2-11) % Eos % (Auto) (0-4) % Baso % (Auto) (0-2) % Lymph # (Auto) (1.2-4.9) X10*3/uL [place] # (Auto) (0.1-1.2) X10*3/uL Eos # (Auto) (0.0-0.4) X10*3/uL Baso # (Auto) (0.0-0.2) X10*3/uL Abs Immat Gran (auto) (0.00-0.03) X10*3/uL Absolute Neuts (auto) (2.0-8.3) X10*3/uL Absolute Nucleated RBC (0.0-0.012) X10*3/uL Nucleated RBC % (auto) (0.0-0.2) /100WBC Sodium (135-145) mmol/L Potassium (3.3-5.1) mmol/L Chloride (96-108) mmol/L Carbon Dioxide (22-29) mmol/L Anion Gap (12-20) BUN (9-16) mg/dL Creatinine (0.5-1.4) mg/dL Estim Creat Clear Calc Estimated GFR Random Glucose (60-115) mg/dL Calcium (8.4-10.2) mg/dL Total Bilirubin (0.0-1.0) mg/dL Direct Bilirubin (0.0-0.5) mg/dL AST (5-31) U/L ALT (0-31) U/L Alkaline Phosphatase (39-117) U/L Total Protein (6.5-8.0) g/dL Albumin (3.5-5.0) g/dL Lipase (8-78) U/L Stool Occult Blood NEGATIVE (NEGATIVE) COVID-19 (JULIANO) (Negative) COVID-19 Clin Com Imaging Data CT scan - head: Radiologist's impression: No acute intracranial hemorrhage or mass effect. No significant interval change. Discharge Plan Discharge Clinical Impression: Anemia, Acute kidney insufficiency Patient Disposition: Admitted As Inpatient Prescriptions: No Action multivitamin Tablet 1 tab PO DAILY RF: 0 prednisone 10 mg Tablet 10 mg PO DAILY RF: 0 amlodipine 2.5 mg tablet 2.5 mg PO DAILY RF: 0 metoprolol succinate 25 mg Tablet Extended Release 24 Hr 25 mg PO DAILY Qty: 90 RF: 6 losartan 100 mg Tablet 100 mg PO DAILY Qty: 30 RF: 3 hydrochlorothiazide 25 mg Tablet 25 mg PO QAM Qty: 30 RF: 4 lidocaine HCl [Lidocaine Viscous] 2 % solution 15 ml PO QID RF: 0 escitalopram oxalate 5 mg tablet 5 mg PO DAILY RF: 0 oxycodone 5 mg Capsule 5 mg PO Q6H PRN (Reason: Pain) Qty: 60 RF: 0 acyclovir 400 mg Tablet 400 mg PO TID Qty: 30 RF: 0 alprazolam 0.25 mg Tablet 0.25 mg PO BEDTIME PRN (Reason: Insomnia) Qty: 30 RF: 0 clobetasol 0.05 % gel 1 appl topical TID RF: 0 cyclosporine modified 100 mg capsule 200 mg PO DAILY RF: 0
--- NOTE | 2021-02-20 17:44 | PC.NURSE ---
PT ALERT AND ORIENTED, SKIN PWD, RESPIRATIONS EVEN AND UNLABORED. PT REPORTS THAT SHE HAD A KNEE SURGERY A LITTLE WHILE AGO AND SINCE THEN THINGS HAVE NOT DOING WELL, MOVED INTO A ASSISTED LIVING THAT HER BROTHER RECOMMENDED AND SINCE THEN ALSO KEEPS GETTING SICK, JUST FEELS GENERALLY WEAK. VS STABLE
[2021-02-20 17:52] LABS: MANUAL DIFF FLAG NO
[2021-02-20 18:01] LABS: Basophils Percent Auto 0.2 % (0-2); Imm Gran Abs Auto 0.08 X10*3/uL (0.00-0.03); Imm Gran Pct Auto 1.7 % (0.0-0.4); Lymphocytes Absolute Auto 0.7 X10*3/uL (1.2-4.9); Lymphocytes Percent Auto 13.8 % (20-40); Mean Corpuscular HGB Conc 33.5 g/dl (31.0-35.0); Mean Corpuscular Hemoglobin 32.6 pg (27.0-33.0); Mean Corpuscular Volume 97.2 fL (80-98); Mean Platelet Volume 12.2 fL (9.4-12.3); Monocytes Absolute Auto 0.2 X10*3/uL (0.1-1.2); Monocytes Percent Auto 3.5 % (2-11); Neutrophils Absolute Auto 3.9 X10*3/uL (2.0-8.3); Neutrophils Percent Auto 80.8 % (45-73); Platelet Count 231 X10*3/uL (160-400); Red Blood Count 2.15 X10*6/uL (4.20-5.50); Red Cell Distribution Width 14.6 % (11.0-16.0); White Blood Count 4.8 X10*3/uL (4.8-10.8)
[2021-02-20 18:03] LABS: Hematocrit 20.9 % (37-47)
[2021-02-20 18:12] LABS: COVID-19 Test Negative (Negative); IDNOW Serial# 08D9AD1C
[2021-02-20 18:16] LABS: Alanine Aminotransferase 47 U/L (0-31); Albumin Level 3.7 g/dL (3.5-5.0); Alkaline Phosphatase 67 U/L (39-117); Anion Gap 17 (12-20); Aspartate Amino Transferase 31 U/L (5-31); Bilirubin Direct 0.4 mg/dL (0.0-0.5); Bilirubin Total 0.6 mg/dL (0.0-1.0); Blood Urea Nitrogen 38 mg/dL (9-16); Calcium 9.1 mg/dL (8.4-10.2); Carbon Dioxide 26 mmol/L (22-29); Chloride 103 mmol/L (96-108); Creatinine Clr Calc Pharmacy 18.9; Estimated Glomerular Filt Rate 27; Glucose Random 204 mg/dL (60-115); Lipase 10 U/L (8-78); Potassium 4.6 mmol/L (3.3-5.1); Sodium 141 mmol/L (135-145); Total Protein 5.6 g/dL (6.5-8.0)
[2021-02-20 19:13] VITALS: BP 114/49; PULSE 64; RESP 16; TEMP 36.8; O2SAT 98
[2021-02-20 19:44] LABS: OBS Int Ctl Valid YES; OBS1 NEGATIVE (NEGATIVE)
--- NOTE | 2021-02-20 19:47 | PC.NURSE ---
REPORT TAKEN FROM TEODORO PAINTER, FIRST CONTACT WITH PT. SITTING UP IN BED SKIN PALE, WARM, AND DRY, SPEAKING IN FULL SENTENCES, A&Ox3. OFFERS NO COMPLAINTS AT THIS TIME. AWAITING BLOOD TRANSFUSION. CONSENT IN CHART, AWARE OF PLAN OF CARE.
--- NOTE | 2021-02-20 20:39 | PC.NURSE ---
HOSPITALIST AT BEDSIDE FOR CONSULT FOR ADMISSION.
[2021-02-20 21:42] LABS: Glucose Urine UA NEG (NEG); Leukocyte Esterase Urine NEG (NEG); Nitrite Urine NEG (NEG); Specific Gravity - Urine 1.015 (1.005-1.025); Urine Blood NEG (NEG); Urine Ketones NEG (NEG); Urine Protein NEG (NEG-TRACE)
[2021-02-20 21:43] LABS: Appearance Urine CLEAR; Color Urine YELLOW
--- NOTE | 2021-02-20 23:01 | MHC.CM.PN ---
CM met with admitted woman, pending bed assignment. IMM reviewed and signed 02/20/21@[id number]. Pt was [place] [facility] [place] and STR was recommended, but pt and HCP chose home PT with [facility]. Pt returned to ED today at request of [facility] secondary to weakness and needing STR. Pt lives at independent living at [facility], uses a walker and has a CHIEF DEVELOPMENT OFFICER, which is privately paid M-F 8-12noon. HCP/brother Andrew Oviedo ([phone]). Pt aware that a PT evaluation is needed and she will need STR in order to become stronger. No referrals placed at this time. CM will follow for d/c needs.
[2021-02-21] VITALS (11 sets, daily range): BP systolic 111–150; BP diastolic 53–69; PULSE 56–74; RESP 14–18; TEMP 36.2–37.3; O2SAT 90–98; BMI 23.3
--- NOTE | 2021-02-21 00:13 | PM.IMHP ---
History of Present Illness Date of Service: 02/20/21 Chief Complaint: Confusion This is an 80-year-old female with past medical history of large granular lymphocytic leukemia, basal cell carcinoma, goiter, hypertension, the ED by family as they noticed her to be more confused and generally more weak. Patient herself is alert, oriented to self and place and time but the very poor historian, speaks very slowly, goes off topic, does not answer questions appropriately and therefore history is mostly obtained from EMR and ED physician. According to the family they found her to have possibly taken 3 days of extra medications, unclear what medications, it appears to be by mistake although patient cannot tell me much details about that. She tells me that she currently lives in assisted living but according to the ED physician she lives alone with nursing 8 and VNA. Family does not believe the patient can care for herself and would like her to also be evaluated for placement. Nausea or vomiting, no diarrhea constipation, no melena, hemoptysis, hematemesis, no urinary frequency and no lower extremity edema. On arrival to the ED hemodynamically stable with no significant abnormal vitals On arrival are significant for WBC count of 4.8, hemoglobin of 7.0 with a most recent hemoglobin of 8.3 on 02/13, platelets of 231, BUN of 30, creatinine of 1.81 with a baseline around 0.7, UA negative, Both head CT and chest x-ray negative for any acute abnormality Patient was discussed by ED physician with hematology oncologist, would like patient to be admitted and transfused. Review of Systems Review of Systems: Yes all other systems are reviewed and are negative [facility] Medical History Ankle fracture, left Basal cell carcinoma Cancer Goiter Hypertension Knee pain, left Oral mucosal lesion Osteoarthritis Osteoarthritis of left knee Family History Father H/O leukemia H/O malignant mesothelioma H/O: hypertension Mother H/O: hypertension Surgical History History of appendectomy History of bilateral knee replacement Social History Alcohol intake: never Patient Tobacco Use Status: Never used Tobacco Second Hand Smoke Exposure: No Use of substances other than those prescribed or required for medical reasons: No Advance Directives: Yes (HCP) Advance Directives on File: Yes Advance Directives Date on File: 02/12/21 service: No Current occupational status: retired Meds Allergies Allergy/AdvReac Type Severity Reaction Status Date / Time Sulfa (Sulfonamide Allergy Intermediate RASH,HAS Verified 02/20/21 13:14 Antibiotics) HAD [SULFA (SULFONAMIDE RECENTLY ANTIBIOTICS)] WITHOUT REACTION Home Medications Medication Instructions Recorded Confirmed Last Taken Type multivitamin 1 tab PO DAILY 05/23/20 02/20/21 08/04/20 05:30 History amlodipine 2.5 mg PO DAILY 08/23/20 02/20/21 Unknown History escitalopram oxalate 5 mg PO DAILY 12/27/20 02/20/21 Unknown History lidocaine HCl [Lidocaine Viscous] 15 ml PO QID PRN 12/27/20 02/20/21 Unknown History clobetasol 1 appl TOPICAL TID 02/12/21 02/20/21 Unknown History Physical Exam Vital Signs and Narrative: Vital Signs: Last Vital Signs Temp 98.2 F 02/20/21 19:13 Pulse 64 02/20/21 19:13 Resp 16 02/20/21 19:13 BP 114/49 L 02/20/21 19:13 Pulse Ox 98 02/20/21 19:13 Body Mass Index 23.3 Const: General: cooperative, no acute distress and poor hygiene Eyes: General: appearance normal, both eyes and all related structures Pupils: Equal, round and reactive pupils present Resp: Effort & Inspection: normal respiratory effort and able to speak in complete sentences Auscultation: clear to auscultation bilaterally Cardio: Rate: regular rate Rhythm: regular rhythm GI: Palpation (GI): Soft to palpation Auscultation: normal bowel sounds Skin: General skin exam: no rashes or lesions noted Neuro: Other: No neurological deficits but definitely confused Cranial nerves: Yes Equal, round and reactive pupils present Extrem: General: Yes normal to inspection and Yes no pedal edema Results Labs CBC and Chem 7: 02/20/21 17:36 02/20/21 17:36 Labs: Laboratory Results - last 24 hr 02/20/21 02/20/21 02/20/21 17:36 17:36 17:36 MCV 97.2 MCH 32.6 MCHC 33.5 RDW 14.6 Plt Count 231 MPV 12.2 Immature Gran % (Auto) 1.7 H Neut % (Auto) 80.8 H Lymph % (Auto) 13.8 L [place] % (Auto) 3.5 Eos % (Auto) 0.0 Baso % (Auto) 0.2 Lymph # (Auto) 0.7 L [place] # (Auto) 0.2 Eos # (Auto) 0.0 Baso # (Auto) 0.0 Abs Immat Gran (auto) 0.08 H Absolute Neuts (auto) 3.9 Absolute Nucleated RBC 0.000 Nucleated RBC % (auto) 0.0 Anion Gap 17 Estim Creat Clear Calc 18.9 Estimated GFR 27 Random Glucose 204 H D Calcium 9.1 Total Bilirubin 0.6 Direct Bilirubin 0.4 AST 31 ALT 47 H Alkaline Phosphatase 67 Total Protein 5.6 L Albumin 3.7 Lipase 10 Urine Color Urine Appearance Urine pH Ur Specific [place] Urine Protein Urine Glucose (UA) Urine Ketones Urine Blood Urine Nitrite Ur Leukocyte Esterase Stool Occult Blood COVID-19 (JULIANO) Negative COVID-19 Clin Com See Note Blood Type Antibody Screen Crossmatch 02/20/21 02/20/21 02/20/21 19:14 21:10 21:35 MCV MCH MCHC RDW Plt Count MPV Immature Gran % (Auto) Neut % (Auto) Lymph % (Auto) [place] % (Auto) Eos % (Auto) Baso % (Auto) Lymph # (Auto) [place] # (Auto) Eos # (Auto) Baso # (Auto) Abs Immat Gran (auto) Absolute Neuts (auto) Absolute Nucleated RBC Nucleated RBC % (auto) Anion Gap Estim Creat Clear Calc Estimated GFR Random Glucose Calcium Total Bilirubin Direct Bilirubin AST ALT Alkaline Phosphatase Total Protein Albumin Lipase Urine Color YELLOW Urine Appearance CLEAR Urine pH 6.0 Ur Specific [place] 1.015 Urine Protein NEG Urine Glucose (UA) NEG Urine Ketones NEG Urine Blood NEG Urine Nitrite NEG Ur Leukocyte Esterase NEG Stool Occult Blood NEGATIVE COVID-19 (JULIANO) COVID-19 Clin Com Blood Type A Positive Antibody Screen NEGATIVE Crossmatch See Detail Imaging Radiologist's Impressions: Impressions Chest X-Ray 02/20/21 17:09 IMPRESSION: No acute intrathoracic disease. Large thyroid goiter unchanged. Head CT 02/20/21 17:09 IMPRESSION: No acute intracranial hemorrhage or mass effect. No significant interval change. Assessment and Plan (1) Anemia: Qualifiers: Anemia type: unspecified type Qualified Code(s): D64.9 - Anemia, unspecified Status: Acute (2) Acute kidney insufficiency: Status: Acute (3) Encephalopathy: Status: Acute 80-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 presents to the hospital with confusion found to have anemia as well as ALLAN # encephalopathy - most likely secondary to ALLAN - no evidence of acute infection - patient is alert and oriented to self and place but not able to give good history - treat ALLAN, anemia, monitor mentation - case management for placement once medically cleared # normocytic anemia - negative stool occult blood - no history of melena, or hematemesis/hemoptysis - most likely secondary to her leukemia although did have more than 1 unit drop of hemoglobin in 1 week - at this time patient is being transfused 2 units of PRBC in the ED - will consult Hematology-Oncology - Follow CBC # ALLAN - possibly secondary to dehydration - started on a IV fluids - follow BMP # lymphocytic leukemia - patient still undergoing treatment - Hematology-Oncology consulted # hypertension - stable - continue amlodipine - will hold hydrochlorothiazide and losartan in the setting of acute kidney injury DVT prophylaxis: SCDs in the setting of acute anemia if GI bleed is completely ruled out consider starting her on heparin given her history of cancer and high risk for DVT Quality Stroke Does the patient have a stroke diagnosis?: No VTE Prior VTE?: No VTE Risk Level:: Medical - moderate - high VTE Device Contraindication: N/A - Device Ordered VTE Drug Contraindication: Treatment Not Tolerated
--- NOTE | 2021-02-21 00:18 | PC.NURSE ---
PT RESTING IN BED NO CHANGE IN PHYSICAL ASSESSMENT. OFFERS NO COMPLAINTS AT THIS TIME. BLOOD TRANSFUSION INFUSING WITHOUT DIFFICULTY. NO TRANSFUSION REACTION NOTED THUS FAR. CONTINUES TO AWAIT BED ASSIGNMENT. AWARE OF PLAN OF CARE.
[2021-02-21] MEDS: 0.9 % Sodium Chloride Flush 3 ML SYRINGE IVFLUSH ×3 (00:27→16:14)
[2021-02-21] MEDS: Lactated Ringers 1,000 ML 100 ML IVCONT ×2 (00:48→10:01)
--- NOTE | 2021-02-21 06:36 | PC.NURSE ---
PT RESTING IN BED SKIN PWD RESPIRATIONS EVEN UNLABORED. VSS. NSR ON MONITOR. LR INFUSING WITHOUT DIFFICULTY. CONTINUES TO AWAIT BED ASSIGNMENT, REPORT GIVEN TO MARIBELL PAINTER.
[2021-02-21 07:08] LABS: MANUAL DIFF FLAG NO
[2021-02-21 07:21] LABS: Basophils Percent Auto 0.2 % (0-2); Eosinophils Absolute Auto 0.1 X10*3/uL (0.0-0.4); Hematocrit 22.2 % (37-47); Hemoglobin 7.7 g/dl (12.0-16.0); Imm Gran Abs Auto 0.09 X10*3/uL (0.00-0.03); Imm Gran Pct Auto 1.7 % (0.0-0.4); Lymphocytes Absolute Auto 1.6 X10*3/uL (1.2-4.9); Mean Corpuscular HGB Conc 34.7 g/dl (31.0-35.0); Mean Corpuscular Hemoglobin 32.9 pg (27.0-33.0); Mean Corpuscular Volume 94.9 fL (80-98); Mean Platelet Volume 11.8 fL (9.4-12.3); Monocytes Absolute Auto 0.6 X10*3/uL (0.1-1.2); Monocytes Percent Auto 12.3 % (2-11); Neutrophils Absolute Auto 2.8 X10*3/uL (2.0-8.3); Neutrophils Percent Auto 53.8 % (45-73); Platelet Count 197 X10*3/uL (160-400); Red Blood Count 2.34 X10*6/uL (4.20-5.50); Red Cell Distribution Width 14.1 % (11.0-16.0); White Blood Count 5.2 X10*3/uL (4.8-10.8)
--- NOTE | 2021-02-21 07:23 | PC.NURSE ---
pt a/o x 2, pt did not know the year. no sob/shruthi noted skin pink warm dry speaks in full sentences. pt accidentally dislodged the iv to r lower forearm. pt is eating breakfast, ate 25% off breakfast, fluids encouraged.
[2021-02-21 07:43] LABS: Anion Gap 12 (12-20); Blood Urea Nitrogen 38 mg/dL (9-16); Calcium 8.4 mg/dL (8.4-10.2); Carbon Dioxide 27 mmol/L (22-29); Chloride 105 mmol/L (96-108); Creatinine Clr Calc Pharmacy 25.9; Estimated Glomerular Filt Rate 39; Glucose Random 96 mg/dL (60-115); Potassium 3.8 mmol/L (3.3-5.1); Sodium 140 mmol/L (135-145)
--- NOTE | 2021-02-21 08:49 | PC.NURSE ---
dr. hagan at bedside pt aware of plan care. pt appears slightly confused this am. pt states that i dont know the situation and why she is here statements made to the pct (kareem) this am.
--- NOTE | 2021-02-21 09:07 | PC.NURSE ---
nurse to nurse give to pita (ilir), pt aware of plan of care for admission to hosp.
[2021-02-21] MEDS: Multivitamin TABLET 1 TAB PO (10:01)
[2021-02-21] MEDS: oxyCODONE HCl Immed Release 5 MG TABLET PO (10:01)
[2021-02-21] MEDS: amLODIPine Besylate 2.5 MG TABLET PO (10:02)
[2021-02-21] MEDS: Metoprolol Succinate ER 25 MG TAB.ER.24H PO (10:02)
[2021-02-21] MEDS: Escitalopram Oxalate 5 MG TABLET PO (10:02)
--- NOTE | 2021-02-21 10:20 | PM.HEMONCCN ---
Subjective - Subjective Chief complaint: Confusion Patient: known to practice within the last 3 years Consult date: 02/21/21 Requesting Physician: Dr. 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 She has been on cyclosporin and prednisone for a few years and initially responded quite well to this therapy. In the recent months her anemia has worsened and she has required blood transfusions. She also has become her rather weak and unable to care for herself at home. She has had a few urinary tract infections and periods of confusion which prompted ER visits. She lives in an independent living facility with some assistance from staff. Patient was seen in the ED, she was too drowsy and unable to provide any history. [facility] Medical History: Medical History (Last Reviewed 02/21/21 @ 00:19 by Itzel Ragsdale MD) Ankle fracture, left Basal cell carcinoma Cancer Goiter Hypertension Knee pain, left Oral mucosal lesion Osteoarthritis Osteoarthritis of left knee Family History: Family History (Last Reviewed 02/21/21 @ 00:19 by Itzel Ragsdale MD) Father H/O leukemia H/O malignant mesothelioma H/O: hypertension Mother H/O: hypertension Surgical History: Surgical History (Last Reviewed 02/21/21 @ 00:19 by Itzel Ragsdale MD) History of appendectomy History of bilateral knee replacement Social History: Social History (Last Reviewed 02/21/21 @ 00:19 by Itzel Ragsdale MD) Living Situation History: Household Members: None Housing: Assisted Living Facility Do you presently have visiting nurse or other home services: Yes Alcohol History: Alcohol intake: never Alcohol History Details: Alcohol intake frequency: does not drink Tobacco History: Patient Tobacco Use Status: Never used Tobacco Second Hand Smoke Exposure: No Substance Use History: Use of substances other than those prescribed or required for medical reasons: No Currently Displaying Signs/Symptoms of Drug Intoxication Withdrawal: No Domestic Abuse History: Have you been hit, kicked, punched, or otherwise hurt by someone within the past year? If so, by whom?: No Do you feel safe in your current relationship?: No Current Relationship Is there a partner from a previous relationship who is making you feel unsafe now?: No Are you made to feel afraid or neglected: No Advance Directives: Advance Directives: Yes Advance Directives comment: HCP Advance Directives on File: Yes Advance Directives Date on File: 02/12/21 Homicidal Assessment: Do you have thoughts of harming others: None Do you have a plan to hurt others: No Plan Nutrition Assessment: Nutrition Risks: No Nutritional Risk Occupation Assessmet: service: No Current occupational status: retired Home Medications and Allergies Current Medications: Current Medications Generic Name Dose Route Start Last Admin Trade Name Freq PRN Reason Stop Dose Admin Acetaminophen 650 mg 02/21/21 00:18 Acetaminophen 325 Mg Tablet PO Q6H PRN Pain, Mild (Pain Scale 1-3) Amlodipine Besylate 2.5 mg 02/21/21 09:00 02/21/21 10:02 Amlodipine Besylate 2.5 Mg Tablet PO 2.5 mg DAILY BÁRBARA Administration Protocol Betamethasone Dipropion Augmented 1 appl 02/21/21 09:00 Betamethasone Dip Aug 0.05% Cr 15 Gm Tube TOPICAL TID BÁRBARA Docusate Sodium 100 mg 02/21/21 00:18 Docusate Sodium 100 Mg Capsule PO DAILY PRN Constipation Escitalopram Oxalate 5 mg 02/21/21 09:00 02/21/21 10:02 Escitalopram Oxalate 5 Mg Tablet PO 5 mg DAILY BÁRBARA Administration Lactated Ringer's 1,000 mls @ 100 mls/hr 02/21/21 00:18 02/21/21 10:01 Lr IVCONT 100 mls/hr .Q10H BÁRBARA Administration Lidocaine HCl 15 ml 02/21/21 00:18 Lidocaine Hcl Viscous 2 % 15 Ml Solution PO QID PRN mouth ulcers Metoprolol Succinate 25 mg 02/21/21 09:00 02/21/21 10:02 Metoprolol Succinate Er 25 Mg Tab.Er.24h PO 25 mg DAILY BÁRBARA Administration Protocol Multivitamins/Vitamin C 1 tab 02/21/21 09:00 02/21/21 10:01 Multivitamin Tablet PO 1 tab DAILY BÁRBARA Administration Ondansetron HCl 4 mg 02/21/21 00:18 Ondansetron Hcl 4 Mg/2 Ml Vial IVPUSH Q8H PRN Nausea and Vomiting Oxycodone HCl 5 mg 02/21/21 00:18 02/21/21 10:01 Oxycodone Hcl Immed Release 5 Mg Tablet PO 5 mg Q6H PRN Administration Pain Sodium Chloride 3 ml 02/21/21 00:18 02/21/21 07:23 0.9 % Sodium Chloride Flush 3 Ml Syringe IVFLUSH 3 ml QSHIFT BÁRBARA Administration Home Medications Medication Instructions Recorded Confirmed Type multivitamin 1 tab PO DAILY 05/23/20 02/20/21 History amlodipine 2.5 mg tablet 2.5 mg PO DAILY 08/23/20 02/20/21 History escitalopram oxalate 5 mg tablet 5 mg PO DAILY 12/27/20 02/20/21 History lidocaine HCl 2 % mucosal solution 15 ml PO QID PRN 12/27/20 02/20/21 History (Lidocaine Viscous) clobetasol 0.05 % topical gel 1 appl TOPICAL TID 02/12/21 02/20/21 History Allergies Allergy/AdvReac Type Severity Reaction Status Date / Time Sulfa (Sulfonamide Allergy Intermediate RASH,HAS Verified 02/20/21 13:14 Antibiotics) HAD [SULFA (SULFONAMIDE RECENTLY ANTIBIOTICS)] WITHOUT REACTION Physical Exam Vital signs: Vital Signs Temp 98.7 F 02/21/21 09:34 Pulse 65 02/21/21 09:34 Resp 17 02/21/21 09:34 BP 139/61 02/21/21 09:34 Pulse Ox 92 02/21/21 09:34 Intake & Output 02/20/21 02/21/21 02/21/21 18:59 06:59 18:59 Intake Total 350 / 350 921.667 / 921.667 Balance 350 / 350 921.667 / 921.667 Intake: Intake (Blood Product) Amount 350 / 350 Red Blood Cells (E0382) Unit 350 / 350 [id number] Intake, IV Amount 921.667 / 921.667 Lactated Ringers 1,000 ml @ 100 921.667 / 921.667 mls/hr IVCONT .Q10H [facility] Rx#: [id number] Other: Number of Unmeasured Voids 2 Weight 58.06 kg Weight 58.06 kg - Constitutional Present: no acute distress, somnolent - Routine HEENT Exam Head: Present: normal inspection Eye: Present: conjunctivae pale - Routine Respiratory Exam Present: CTAB - Routine Cardiovascular Exam Cardiovascular: Present: S1, S2 - Routine Extremities Exam Absent: tenderness Hem/Onc Consult Result - Labs CBC & Chem 7: 02/21/21 06:48 02/21/21 06:48 Labs: Short CBC 02/20/21 02/21/21 Range/Units 17:36 06:48 WBC 4.8 5.2 (4.8-10.8) X10*3/uL Hgb 7.0 L* 7.7 L (12.0-16.0) g/dl Hct 20.9 L* 22.2 L (37-47) % Plt Count 231 197 (160-400) X10*3/uL BMP 02/20/21 02/21/21 17:36 06:48 Sodium 141 140 Potassium 4.6 3.8 Chloride 103 105 Carbon Dioxide 26 27 BUN 38 H 38 H Creatinine 1.81 H 1.32 Calcium 9.1 8.4 D Liver Function 02/20/21 Range/Units 17:36 Total Bilirubin 0.6 (0.0-1.0) mg/dL Direct Bilirubin 0.4 (0.0-0.5) mg/dL AST 31 (5-31) U/L ALT 47 H (0-31) U/L Alkaline Phosphatase 67 (39-117) U/L Albumin 3.7 (3.5-5.0) g/dL Urine 02/20/21 Range/Units 21:35 Urine Color YELLOW Urine Appearance CLEAR Urine pH 6.0 (5.0-8.0) Ur Specific [place] 1.015 (1.005-1.025) Urine Protein NEG (NEG-TRACE) MG/DL Urine Glucose (UA) NEG (NEG) MG/DL Assessment and Plan (1) Anemia Status: Acute Qualifiers: Anemia type: unspecified type Qualified Code(s): D64.9 - Anemia, unspecified 1. 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 Peripheral blood flow cytometry for T-cell receptor gene rearrangement was positive.(08/31/18). She is on cyclosporin 5 mg/kilo (200mg) since June 2019. Goal therapeutic level would be 200-400 NG/ML. Dose of cyclosporine has been decreased to 200 mg once a day. She is on prednisone 10 mg once a day. Transfuse 1 unit PRBC for anemia. In the recent weeks she has had quite a significant deterioration. Her family is questioning if she is taking medications the right way. Rehabilitation center for some time would be reasonable recommendation at this time. She has had mild worsening of kidney functions probably related to dehydration and poor oral intake. No evidence of GI or genitourinary blood loss. No source of infection. I will send a cyclosporine level and adjust her medication accordingly. I thank you for this consultation.
--- NOTE | 2021-02-21 11:31 | HO.PM.IMPN ---
Subjective Subjective Date of Service: 02/21/21 Interval History: the patient was seen and evaluated this morning Laying in bed, feels comfortable overall Reporting that she feels little better than home and she is not sure why she ended up in the hospital Denies any fever, chills or shortness of breath No reported other overnight events. Systemic review: No fever, chills but reports overall weakness No chest pain, palpitation No shortness of breath or coughing No abdominal pain, nausea or vomiting No urinary symptoms No any rash or wounds Physical Exam Vital Signs: Vital Signs: Last Vital Signs Temp 98.7 F 02/21/21 09:34 Pulse 65 02/21/21 09:34 Resp 17 02/21/21 09:34 BP 139/61 02/21/21 09:34 Pulse Ox 92 02/21/21 09:34 Body Mass Index 23.3 Const: Other: Constitutional : Alert, oriented to self and place, looks weak Neck : Normal inspection, Supple Cardiovascular : RRR, S1 S2, no lower extremity edema Respiratory : Fair bilateral air entry, no crackles, wheezes or rhonchi Gastrointestinal: soft, lax, Normal bowel sounds, Non tender Skin : Warm/Dry, No rash Neurological : Alert & oriented x2, No focal deficit, decreased power in all extremities Objective Data Current Medications Generic Name Dose Route Start Last Admin Trade Name Warrenq PRN Reason Stop Dose Admin Acetaminophen 650 mg 02/21/21 00:18 Acetaminophen 325 Mg Tablet PO Q6H PRN Pain, Mild (Pain Scale 1-3) Amlodipine Besylate 2.5 mg 02/21/21 09:00 02/21/21 10:02 Amlodipine Besylate 2.5 Mg Tablet PO 2.5 mg DAILY BÁRBARA Administration Protocol Betamethasone Dipropion Augmented 1 appl 02/21/21 09:00 Betamethasone Dip Aug 0.05% Cr 15 Gm Tube TOPICAL TID BÁRBARA Docusate Sodium 100 mg 02/21/21 00:18 Docusate Sodium 100 Mg Capsule PO DAILY PRN Constipation Escitalopram Oxalate 5 mg 02/21/21 09:00 02/21/21 10:02 Escitalopram Oxalate 5 Mg Tablet PO 5 mg DAILY BÁRBARA Administration Lactated Ringer's 1,000 mls @ 100 mls/hr 02/21/21 00:18 02/21/21 10:01 Lr IVCONT 100 mls/hr .Q10H BÁRBARA Administration Lidocaine HCl 15 ml 02/21/21 00:18 Lidocaine Hcl Viscous 2 % 15 Ml Solution PO QID PRN mouth ulcers Metoprolol Succinate 25 mg 02/21/21 09:00 02/21/21 10:02 Metoprolol Succinate Er 25 Mg Tab.Er.24h PO 25 mg DAILY BÁRBARA Administration Protocol Multivitamins/Vitamin C 1 tab 02/21/21 09:00 02/21/21 10:01 Multivitamin Tablet PO 1 tab DAILY BÁRBARA Administration Ondansetron HCl 4 mg 02/21/21 00:18 Ondansetron Hcl 4 Mg/2 Ml Vial IVPUSH Q8H PRN Nausea and Vomiting Oxycodone HCl 5 mg 02/21/21 00:18 02/21/21 10:01 Oxycodone Hcl Immed Release 5 Mg Tablet PO 5 mg Q6H PRN Administration Pain Sodium Chloride 3 ml 02/21/21 00:18 02/21/21 07:23 0.9 % Sodium Chloride Flush 3 Ml Syringe IVFLUSH 3 ml QSHIFT BÁRBARA Administration Labs CBC & Chem 7: 02/21/21 06:48 02/21/21 06:48 Labs: Laboratory Results - last 24 hr 02/20/21 02/20/21 02/20/21 17:36 17:36 17:36 WBC 4.8 RBC 2.15 L Hgb 7.0 L* Hct 20.9 L* MCV 97.2 MCH 32.6 MCHC 33.5 RDW 14.6 Plt Count 231 MPV 12.2 Immature Gran % (Auto) 1.7 H Neut % (Auto) 80.8 H Lymph % (Auto) 13.8 L [place] % (Auto) 3.5 Eos % (Auto) 0.0 Baso % (Auto) 0.2 Lymph # (Auto) 0.7 L [place] # (Auto) 0.2 Eos # (Auto) 0.0 Baso # (Auto) 0.0 Abs Immat Gran (auto) 0.08 H Absolute Neuts (auto) 3.9 Absolute Nucleated RBC 0.000 Nucleated RBC % (auto) 0.0 Sodium 141 Potassium 4.6 Chloride 103 Carbon Dioxide 26 Anion Gap 17 BUN 38 H Creatinine 1.81 H Estim Creat Clear Calc 18.9 Estimated GFR 27 Random Glucose 204 H D Calcium 9.1 Total Bilirubin 0.6 Direct Bilirubin 0.4 AST 31 ALT 47 H Alkaline Phosphatase 67 Total Protein 5.6 L Albumin 3.7 Lipase 10 Urine Color Urine Appearance Urine pH Ur Specific [place] Urine Protein Urine Glucose (UA) Urine Ketones Urine Blood Urine Nitrite Ur Leukocyte Esterase Stool Occult Blood COVID-19 (JULIANO) Negative COVID-19 Clin Com See Note Blood Type Antibody Screen Crossmatch 02/20/21 02/20/21 02/20/21 19:14 21:10 21:35 WBC RBC Hgb Hct MCV MCH MCHC RDW Plt Count MPV Immature Gran % (Auto) Neut % (Auto) Lymph % (Auto) [place] % (Auto) Eos % (Auto) Baso % (Auto) Lymph # (Auto) [place] # (Auto) Eos # (Auto) Baso # (Auto) Abs Immat Gran (auto) Absolute Neuts (auto) Absolute Nucleated RBC Nucleated RBC % (auto) Sodium Potassium Chloride Carbon Dioxide Anion Gap BUN Creatinine Estim Creat Clear Calc Estimated GFR Random Glucose Calcium Total Bilirubin Direct Bilirubin AST ALT Alkaline Phosphatase Total Protein Albumin Lipase Urine Color YELLOW Urine Appearance CLEAR Urine pH 6.0 Ur Specific [place] 1.015 Urine Protein NEG Urine Glucose (UA) NEG Urine Ketones NEG Urine Blood NEG Urine Nitrite NEG Ur Leukocyte Esterase NEG Stool Occult Blood NEGATIVE COVID-19 (JULIANO) COVID-19 Clin Com Blood Type A Positive Antibody Screen NEGATIVE Crossmatch See Detail 02/21/21 02/21/21 06:48 06:48 WBC 5.2 RBC 2.34 L Hgb 7.7 L Hct 22.2 L MCV 94.9 MCH 32.9 MCHC 34.7 RDW 14.1 Plt Count 197 MPV 11.8 Immature Gran % (Auto) 1.7 H Neut % (Auto) 53.8 Lymph % (Auto) 31.0 [place] % (Auto) 12.3 H Eos % (Auto) 1.0 Baso % (Auto) 0.2 Lymph # (Auto) 1.6 [place] # (Auto) 0.6 Eos # (Auto) 0.1 Baso # (Auto) 0.0 Abs Immat Gran (auto) 0.09 H Absolute Neuts (auto) 2.8 Absolute Nucleated RBC 0.000 Nucleated RBC % (auto) 0.0 Sodium 140 Potassium 3.8 Chloride 105 Carbon Dioxide 27 Anion Gap 12 BUN 38 H Creatinine 1.32 Estim Creat Clear Calc 25.9 Estimated GFR 39 Random Glucose 96 D Calcium 8.4 D Total Bilirubin Direct Bilirubin AST ALT Alkaline Phosphatase Total Protein Albumin Lipase Urine Color Urine Appearance Urine pH Ur Specific [place] Urine Protein Urine Glucose (UA) Urine Ketones Urine Blood Urine Nitrite Ur Leukocyte Esterase Stool Occult Blood COVID-19 (JULIANO) COVID-19 Clin Com Blood Type Antibody Screen Crossmatch Assessment and Plan (1) Encephalopathy: Status: Acute (2) Symptomatic anemia: Status: Acute (3) Acute kidney insufficiency: Status: Acute Assessment and Plan: 80-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 presents to the hospital with confusion found to have anemia as well as ALLAN # encephalopathy Improving, likely from Allan no evidence of acute infection treat ALLAN, anemia, monitor mentation Plan for placement # Physical deconditioning Reported by family and confirmed by the patient Denies recent falls to get physical therapy evaluation # symptomatic anemia negative stool occult blood likely secondary to her leukemia transfused 2 units of PRBC in the ED Appreciate Hematology-Oncology input Follow CBC # ALLAN secondary to dehydration and medications Continue IV fluids follow BMP # lymphocytic leukemia patient still undergoing treatment Hematology-Oncology consulted # hypertension continue amlodipine hold hydrochlorothiazide and losartan in the setting of acute kidney injury DVT prophylaxis SCDs in the setting of acute anemia Quality Stroke Does the patient have a stroke diagnosis?: No VTE Prior VTE?: No VTE Risk Level:: Medical - moderate - high VTE Device Contraindication: N/A - Device Ordered VTE Drug Contraindication: Treatment Not Tolerated
--- NOTE | 2021-02-21 14:53 | MHC.CM.PN ---
CALL TO PATIENT'S BROTHER, SUSAN (ALSO HCP. [phone]. SUSAN REQUESTS REFERRALS TO 1. [facility] AND 2. [facility] REFERRALS PLACED. POSSIBLE DC TOMORROW. SUSAN STATES THAT PATIENT RECENTLY FIRED HER HOME HEALTH AID, BUT HAS SINCE RE-HIRED THE HELP. HOME HEALTH AID AND BROTHER FEEL PATIENT IS IN NEED OF REHAB PRIOR TO RETURNING HOME. CASE MANAGEMENT FOLLOWING
--- NOTE | 2021-02-21 18:26 | PC.NURSE ---
SECOND UNIT OF BLOOD COMPLETED. TOLERATED WELL. NO REACTION NOTED.
[2021-02-21] MEDS: Betamethasone Dip Aug 0.05% Cr 15 GM TUBE 1 APPL TOPICAL (20:58)
[2021-02-22] VITALS (7 sets, daily range): BP systolic 137–191; BP diastolic 56–79; PULSE 64–71; RESP 14–18; TEMP 36.4–37.2; O2SAT 90–98
[2021-02-22] MEDS: Lactated Ringers 1,000 ML 100 ML IVCONT ×3 (01:19→23:26)
[2021-02-22 06:39] LABS: Hematocrit 27.2 % (37-47); Hemoglobin 9.1 g/dl (12.0-16.0); Mean Corpuscular HGB Conc 33.5 g/dl (31.0-35.0); Mean Corpuscular Hemoglobin 31.8 pg (27.0-33.0); Mean Corpuscular Volume 95.1 fL (80-98); Mean Platelet Volume 11.8 fL (9.4-12.3); Platelet Count 202 X10*3/uL (160-400); Red Blood Count 2.86 X10*6/uL (4.20-5.50); White Blood Count 5.6 X10*3/uL (4.8-10.8)
[2021-02-22 07:19] LABS: Anion Gap 8 (12-20); Blood Urea Nitrogen 28 mg/dL (9-16); Carbon Dioxide 33 mmol/L (22-29); Chloride 107 mmol/L (96-108); Creatinine Clr Calc Pharmacy 38.9; Estimated Glomerular Filt Rate > 60; Glucose Random 89 mg/dL (60-115); Potassium 4.1 mmol/L (3.3-5.1); Sodium 144 mmol/L (135-145)
[2021-02-22] MEDS: amLODIPine Besylate 2.5 MG TABLET PO (07:32)
[2021-02-22] MEDS: Escitalopram Oxalate 5 MG TABLET PO (07:32)
[2021-02-22] MEDS: Metoprolol Succinate ER 25 MG TAB.ER.24H PO (07:32)
[2021-02-22] MEDS: Multivitamin TABLET 1 TAB PO (07:32)
[2021-02-22] MEDS: Betamethasone Dip Aug 0.05% Cr 15 GM TUBE 1 APPL TOPICAL ×2 (07:33→14:00)
--- NOTE | 2021-02-22 09:39 | P.CDIC_ITS ---
CDI Concurrent Query Service Date: 02/22/21 Documentation Clarification: Please clarify if you are treating a proba ble/suspected/likely or confirmed: Specifics: Toxic encephalopathy Metabolic encephalopathy Other, please specify if known or undetermined Provider Response: Metabolic Encephalopathy PLEASE DO NOT DELETE/MODIFY EXISTING CONTENT Additional information is needed in order to code to the highest accuracy and appropriate Severity of Illness (SOI). Please clarify the information noted below in your progress notes and discharge summary. Risk Factors/Clinical Indicators/Treatments Encephalopathy, mostly likely 2nd to ALLAN, no evidence of an acute infection, confused, took 3 days worth of medication, family doesnt think she can care for herself. Abnormal speech present. Weak with history of UTI's, significant deterioration, family is questioning taking medication correctly. CDS: Krissy Mcfarland CCS, CDIS Contact Number: [phone] Please Review the information above and exercise your independent professional judgment in responding to the query. If you concur, pleas document in the PROGRESS NOTES and DISCHARGE SUMMARY. If you do not agree with the query, please document in the query above. THIS QUERY IS PART OF THE PERMANENT MEDICAL RECORD
[2021-02-22] MEDS: Mag&Al/Sim/Diphenhyd/Lidocaine 10 ML ORAL.SUSP PO (11:05)
[2021-02-22] MEDS: Folic Acid 1 MG TABLET PO (11:06)
[2021-02-22] MEDS: oxyCODONE HCl Immed Release 5 MG TABLET PO (11:10)
[2021-02-22 11:29] LABS: Folate 19.3 ng/mL (> or = 4.0)
--- NOTE | 2021-02-22 13:26 | HO.PM.IMPN ---
Subjective Subjective Date of Service: 02/22/21 Interval History: the patient was seen and evaluated this morning Laying in bed, feels home very weak and has no energy She does not have energy to participated physical therapy session Denies any fever, chills or shortness of breath No reported other overnight events. Systemic review: No fever, chills but reports overall weakness No chest pain, palpitation No shortness of breath or coughing No appetite, No abdominal pain, nausea or vomiting No urinary symptoms No any rash or wounds Physical Exam Vital Signs: Vital Signs: Last Vital Signs Temp 98.9 F 02/22/21 12:00 Pulse 64 02/22/21 12:00 Resp 18 02/22/21 12:00 BP 145/61 H 02/22/21 12:00 Pulse Ox 95 02/22/21 12:00 Body Mass Index 23.3 Const: Other: Constitutional : Alert, oriented to self and place, looks weak Neck : Normal inspection, Supple Cardiovascular : RRR, S1 S2, no lower extremity edema Respiratory : Fair bilateral air entry, no crackles, wheezes or rhonchi Gastrointestinal: soft, lax, Normal bowel sounds, Non tender Skin : Warm/Dry, No rash Neurological : Alert & oriented x2, No focal deficit, decreased power in all extremities Objective Data Current Medications Generic Name Dose Route Start Last Admin Trade Name Warrenq PRN Reason Stop Dose Admin Acetaminophen 650 mg 02/21/21 00:18 Acetaminophen 325 Mg Tablet PO Q6H PRN Pain, Mild (Pain Scale 1-3) Amlodipine Besylate 2.5 mg 02/21/21 09:00 02/22/21 07:32 Amlodipine Besylate 2.5 Mg Tablet PO 2.5 mg DAILY BÁRBARA Administration Protocol Betamethasone Dipropion Augmented 1 appl 02/21/21 09:00 02/22/21 07:33 Betamethasone Dip Aug 0.05% Cr 15 Gm Tube TOPICAL 1 appl TID BÁRBARA Administration Docusate Sodium 100 mg 02/21/21 00:18 Docusate Sodium 100 Mg Capsule PO DAILY PRN Constipation Escitalopram Oxalate 5 mg 02/21/21 09:00 02/22/21 07:32 Escitalopram Oxalate 5 Mg Tablet PO 5 mg DAILY BÁRBARA Administration Folic Acid 1 mg 02/22/21 10:10 02/22/21 11:06 Folic Acid 1 Mg Tablet PO 1 mg DAILY BÁRBARA Administration Lactated Ringer's 1,000 mls @ 100 mls/hr 02/21/21 00:18 02/22/21 11:05 Lr IVCONT 100 mls/hr .Q10H BÁRBARA Administration Lidocaine HCl 15 ml 02/21/21 00:18 Lidocaine Hcl Viscous 2 % 15 Ml Solution PO QID PRN mouth ulcers Lidocaine/Diphenhydr/Alum/Mg/Simeth 10 ml 02/22/21 11:00 02/22/21 11:05 Mag&Al/Sim/Diphenhyd/Lidocaine 10 Ml Oral.Susp PO 10 ml Q6H BÁRBARA Administration Protocol Metoprolol Succinate 25 mg 02/21/21 09:00 02/22/21 07:32 Metoprolol Succinate Er 25 Mg Tab.Er.24h PO 25 mg DAILY [facility] Administration Protocol Multivitamins/Vitamin C 1 tab 02/21/21 09:00 02/22/21 07:32 Multivitamin Tablet PO 1 tab DAILY [facility] Administration Ondansetron HCl 4 mg 02/21/21 00:18 Ondansetron Hcl 4 Mg/2 Ml Vial IVPUSH Q8H PRN Nausea and Vomiting Oxycodone HCl 5 mg 02/21/21 00:18 02/22/21 11:10 Oxycodone Hcl Immed Release 5 Mg Tablet PO 5 mg Q6H PRN Administration Pain Sodium Chloride 3 ml 02/21/21 00:18 02/22/21 07:29 0.9 % Sodium Chloride Flush 3 Ml Syringe IVFLUSH Not Given QSHIFT [facility] Labs CBC & Chem 7: 02/22/21 06:15 02/22/21 06:15 Labs: Laboratory Results - last 24 hr 02/20/21 02/22/21 02/22/21 21:10 06:15 06:15 MCV 95.1 MCH 31.8 MCHC 33.5 RDW 14.0 Plt Count 202 MPV 11.8 Absolute Nucleated RBC 0.000 Nucleated RBC % (auto) 0.0 Anion Gap 8 L Estim Creat Clear Calc 38.9 Estimated GFR > 60 Random Glucose 89 Calcium 9.0 D Folate Blood Type A Positive Antibody Screen NEGATIVE Crossmatch See Detail 02/22/21 06:15 MCV MCH MCHC RDW Plt Count MPV Absolute Nucleated RBC Nucleated RBC % (auto) Anion Gap Estim Creat Clear Calc Estimated GFR Random Glucose Calcium Folate 19.3 Blood Type Antibody Screen Crossmatch Assessment and Plan (1) Symptomatic anemia: Status: Acute (2) Acute metabolic encephalopathy: Status: Acute (3) Acute kidney insufficiency: Status: Acute Assessment and Plan: 80-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 presents to the hospital with confusion found to have anemia as well as CARMEN # metabolic encephalopathy Improved, likely from Carmen no evidence of acute infection treat CARMEN, anemia Recurrent reorientation # Physical deconditioning Reported by family and confirmed by the patient Denies recent falls PT evaluation recommended long-term care, to look for placement # symptomatic anemia negative stool occult blood likely secondary to her leukemia Hemoglobin of 9 after 2 units transfusion Appreciate Hematology-Oncology input Follow CBC # CARMEN Improving, creatinine down Continue IV fluids follow BMP # lymphocytic leukemia patient still undergoing treatment Hematology-Oncology consulted # hypertension continue amlodipine hold hydrochlorothiazide and losartan in the setting of acute kidney injury DVT prophylaxis SCDs in the setting of acute anemia Quality Stroke Does the patient have a stroke diagnosis?: No VTE Prior VTE?: No VTE Risk Level:: Medical - moderate - high VTE Device Contraindication: N/A - Device Ordered VTE Drug Contraindication: Treatment Not Tolerated
--- NOTE | 2021-02-22 15:53 | MHC.CM.PN ---
[facility] DOES NOT HAVE A BED TO OFFER. [facility] STATES THAT PATIENT DOES NOT HAVE A SKILL. LIAISON FOR FACILITY IS REACHING OUT TO HCP/BROTHER, TO INQUIRE ABOUT LTC VERSUS HOME WITH 24 HOUR CARE. CASE MANAGEMENT TO CALL HCP/BROTHER.
--- NOTE | 2021-02-22 16:20 | MHC.CM.PN ---
BROTHER (IN ROOM) STATES THAT PATIENT DOES NOT HAVE 24 HOUR CARE IN THE HOME AND FEELS THAT SHE WOULD BE BETTER CARED FOR AT A SNF. HE DOES MENTION THAT [facility] MAY BE ABLE OT ACCPET HER. REFERRAL PLACED TO [facility] AND TO [facility] ([facility] WITH [facility]) PATIENT IS APPROPRIATE FOR A HOSPICE CONSULT, AND WE ARE FIRST GETTING ONCOLOGY CONSULT. PLAN IS FOR PATIENT TO REMAIN TONIGHT AND CASE MANAGEMENT WILL FOLLOW UP TOMORROW. BROTHER AWARE.
[2021-02-23] VITALS (7 sets, daily range): BP systolic 129–152; BP diastolic 54–67; PULSE 62–88; RESP 16–19; TEMP 36–37.1; O2SAT 94–98
[2021-02-23] MEDS: Metoprolol Succinate ER 25 MG TAB.ER.24H PO (08:44)
[2021-02-23] MEDS: Folic Acid 1 MG TABLET PO (08:44)
[2021-02-23] MEDS: oxyCODONE HCl Immed Release 5 MG TABLET PO (08:44)
[2021-02-23] MEDS: Multivitamin TABLET 1 TAB PO (08:44)
[2021-02-23] MEDS: Escitalopram Oxalate 5 MG TABLET PO (08:44)
[2021-02-23] MEDS: amLODIPine Besylate 2.5 MG TABLET PO (08:44)
[2021-02-23] MEDS: Betamethasone Dip Aug 0.05% Cr 15 GM TUBE 1 APPL TOPICAL ×2 (08:45→14:10)
--- NOTE | 2021-02-23 09:11 | MHC.CM.PN ---
PER HOSPITALIST CONVERSATION WITH PATIENT, REFERRAL NOW PLACED TO [facility]. CASE MANAGEMENT CONTINUING TO FOLLOW
--- NOTE | 2021-02-23 11:09 | MHC.CLN ---
NUTRITION POOR INTAKE AT MEALS. CONTINUE REGULAR DIET WITH ENSURE 240 ML BID. ENSURE PROVIDES 700 KCAL AND 40 G PROTEIN. WOUNDS WITH STAGE I COCCYX AND STAGE II BILATERAL BUTTOCKS. PER ROUNDS, HOSPICE REFERRAL.
--- NOTE | 2021-02-23 11:15 | W.MHC.ACPN ---
Advanced Care Planning Note Advanced Care Planning Note Discussed with: patient Time spent (in minutes): 18 Narrative: I had a chance to speak with the patient about his goals of care. Presented to the hospital with physical deconditioning and increased weakness with decreased oral intake and failure to thrive. Found to be in symptomatic anemia requiring blood transfusion associated with mild kidney insufficiency and changes in her baseline mentation. Patient's treated with IV fluid and blood transfusion with stable blood work. She continue to feel very weak and refused to eat as she has no appetite. Discussed goals of care with her including NG tube placement, G-tube placement or seeking comfort measures and hospice care. I explained hospice care to the patient and the failure of the it can be done at facility or at home. She seems to be interested to hearing from them. Will arrange for hospice meeting as the patient considering discharge on hospice service. Problems Discussed (1) Symptomatic anemia: (2) Acute metabolic encephalopathy: (3) Acute kidney insufficiency:
--- NOTE | 2021-02-23 11:17 | HO.PM.IMPN ---
Subjective Subjective Date of Service: 02/23/21 Interval History: the patient was seen and evaluated this morning Laying in bed, feels home very weak and has no energy or well to eat or do any activity She does not have energy to participated physical therapy session Denies any fever, chills or shortness of breath No reported other overnight events. Systemic review: No fever, chills but reports overall weakness and feeling pain No chest pain, palpitation No shortness of breath or coughing No appetite, No abdominal pain, nausea or vomiting No urinary symptoms No any rash or wounds Physical Exam Vital Signs: Vital Signs: Last Vital Signs Temp 98.5 F 02/23/21 07:51 Pulse 81 02/23/21 07:51 Resp 18 02/23/21 07:51 BP 147/61 H 02/23/21 07:51 Pulse Ox 94 02/23/21 07:51 Body Mass Index 23.3 Const: Other: Constitutional : Alert, oriented to self and place, looks weak and has no energy Neck : Normal inspection, Supple Cardiovascular : RRR, S1 S2, no lower extremity edema Respiratory : Fair bilateral air entry, no crackles, wheezes or rhonchi Gastrointestinal: soft, lax, Normal bowel sounds, Non tender Skin : Warm/Dry, No rash Neurological : Alert & oriented x2, No focal deficit, decreased power in all extremities Objective Data Current Medications Generic Name Dose Route Start Last Admin Trade Name Freq PRN Reason Stop Dose Admin Acetaminophen 650 mg 02/21/21 00:18 Acetaminophen 325 Mg Tablet PO Q6H PRN Pain, Mild (Pain Scale 1-3) Amlodipine Besylate 2.5 mg 02/21/21 09:00 02/23/21 08:44 Amlodipine Besylate 2.5 Mg Tablet PO 2.5 mg DAILY BÁRBARA Administration Protocol Betamethasone Dipropion Augmented 1 appl 02/21/21 09:00 02/23/21 08:45 Betamethasone Dip Aug 0.05% Cr 15 Gm Tube TOPICAL 1 appl TID BÁRBARA Administration Docusate Sodium 100 mg 02/21/21 00:18 Docusate Sodium 100 Mg Capsule PO DAILY PRN Constipation Escitalopram Oxalate 5 mg 02/21/21 09:00 02/23/21 08:44 Escitalopram Oxalate 5 Mg Tablet PO 5 mg DAILY BÁRBARA Administration Folic Acid 1 mg 02/22/21 10:10 02/23/21 08:44 Folic Acid 1 Mg Tablet PO 1 mg DAILY BÁRBARA Administration Lactated Ringer's 1,000 mls @ 100 mls/hr 02/21/21 00:18 02/23/21 09:31 Lr IVCONT Infused .Q10H BÁRBARA Infusion Lidocaine HCl 15 ml 02/21/21 00:18 Lidocaine Hcl Viscous 2 % 15 Ml Solution PO QID PRN mouth ulcers Lidocaine/Diphenhydr/Alum/Mg/Simeth 10 ml 02/22/21 11:00 02/23/21 08:43 Mag&Al/Sim/Diphenhyd/Lidocaine 10 Ml Oral.Susp PO Not Given Q6H [facility] Protocol Metoprolol Succinate 25 mg 02/21/21 09:00 02/23/21 08:44 Metoprolol Succinate Er 25 Mg Tab.Er.24h PO 25 mg DAILY BÁRBARA Administration Protocol Multivitamins/Vitamin C 1 tab 02/21/21 09:00 02/23/21 08:44 Multivitamin Tablet PO 1 tab DAILY BÁRBARA Administration Ondansetron HCl 4 mg 02/21/21 00:18 Ondansetron Hcl 4 Mg/2 Ml Vial IVPUSH Q8H PRN Nausea and Vomiting Oxycodone HCl 5 mg 02/21/21 00:18 02/23/21 08:44 Oxycodone Hcl Immed Release 5 Mg Tablet PO 5 mg Q6H PRN Administration Pain Sodium Chloride 3 ml 02/21/21 00:18 02/23/21 08:43 0.9 % Sodium Chloride Flush 3 Ml Syringe IVFLUSH Not Given QSHIFT [facility] Labs CBC & Chem 7: 02/22/21 06:15 02/22/21 06:15 Labs: Laboratory Results - last 24 hr 02/22/21 06:15 Folate 19.3 Assessment and Plan (1) Acute metabolic encephalopathy: Status: Acute (2) Symptomatic anemia: Status: Acute (3) Encephalopathy: Status: Acute (4) Acute kidney insufficiency: Status: Acute (5) Physical deconditioning: Status: Acute (6) FTT (failure to thrive) in adult: Status: Acute Assessment and Plan: 80-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 presents to the hospital with confusion found to have anemia as well as ALLAN # metabolic encephalopathy Improved no evidence of acute infection Recurrent reorientation # Physical deconditioning Reported by family and confirmed by the patient PT evaluation recommended long-term care, to look for placement # symptomatic anemia negative stool occult blood likely secondary to her leukemia Hemoglobin of 9 after 2 units transfusion Appreciate Hematology-Oncology input Follow CBC # failure to thrive in adult Secondary to advancing leukemia, no plans for treatment Considering hospice measures # ALLAN Resolved Discontinue IV fluids follow BMP # lymphocytic leukemia Advancing disease, on supportive measures only and blood transfusion as needed Hematology-Oncology discussed, agrees with hospice approach # hypertension continue amlodipine hold hydrochlorothiazide and losartan in the setting of acute kidney injury DVT prophylaxis SCDs in the setting of acute anemia Quality Stroke Does the patient have a stroke diagnosis?: No VTE Prior VTE?: No VTE Risk Level:: Medical - moderate - high VTE Device Contraindication: N/A - Device Ordered VTE Drug Contraindication: Treatment Not Tolerated
--- NOTE | 2021-02-23 15:19 | MHC.CM.PN ---
HCP/BROTHER WOULD LIKE TO HAVE PATIENT TRANSPORT TO [facility] AND SIGN ONTO [facility] (CONSULT OCCURRED AND BOTH PATIENT AND HCP/BROTHER AGREE TO PLAN) [facility] ORIGINALLY OFFERED, STATING PATIENT HAD 7 FREE DAYS, AND NOW IS RETRACTING THE OFFER THEY FURTHER REVIEW A FEW THINGS ON THEIR END PHONE CONVERSATION OCCURRED WITH [employer], WHO STATES THAT [employer] MAY NOT BE HONORING THE CONTRACTS. ACCORDING TO JESSICA ECHOLS RN [employer], PATIENT DOES HAVE 7 DAYS AT [facility].
--- NOTE | 2021-02-23 15:54 | MHC.CM.PN ---
PLAN IS FOR PATIENT TO TRANSFER TO [facility] TOMORROW (02/24/21) BROTHER/HCP AND PATIENT AWARE PATIENT HAS 7 FREE SNF STAY DAYS ACCORDING TO [facility], THE FACILITY WILL THEN BILL THE PATIENT'S LIVING CAMPUS. COVERING MIGRATION SPECIALIST AWARE OF PLAN. IMM 02/23 IN CHART
[2021-02-23] MEDS: Acetaminophen 325 MG TABLET 650 MG PO (16:16)
[2021-02-23] MEDS: 0.9 % Sodium Chloride Flush 3 ML SYRINGE IVFLUSH (16:17)
[2021-02-23] MEDS: Mag&Al/Sim/Diphenhyd/Lidocaine 10 ML ORAL.SUSP PO (16:17)
[2021-02-24] MEDS: 0.9 % Sodium Chloride Flush 3 ML SYRINGE IVFLUSH ×2 (00:52→08:00)
[2021-02-24 03:57] VITALS: BP 138/66; PULSE 64; RESP 18; TEMP 36.6; O2SAT 94
[2021-02-24 07:38] VITALS: BP 149/57; PULSE 98; RESP 14; TEMP 36.2; O2SAT 98
[2021-02-24] MEDS: Folic Acid 1 MG TABLET PO (07:59)
[2021-02-24] MEDS: Multivitamin TABLET 1 TAB PO (07:59)
[2021-02-24] MEDS: Escitalopram Oxalate 5 MG TABLET PO (08:00)
[2021-02-24] MEDS: amLODIPine Besylate 2.5 MG TABLET PO (08:00)
[2021-02-24] MEDS: Metoprolol Succinate ER 25 MG TAB.ER.24H PO (08:00)
[2021-02-24] MEDS: Betamethasone Dip Aug 0.05% Cr 15 GM TUBE 1 APPL TOPICAL (08:01)
--- NOTE | 2021-02-24 10:00 | PM.DS ---
DS: Providers Provider Date of Service: 02/24/21 Date of admission: 02/20/21 22:11 Primary care physician: Silvina Langford MD Consults: 02/21/21 00:18 Consult to Hematology / Oncology Routine Consulting Provider: Sharee Bowles Reason for consultation: 4 Has provider been notified: Yes DS: Diagnosis Discharge Diagnosis (1) Acute metabolic encephalopathy: Status: Acute (2) Symptomatic anemia: Status: Acute (3) Encephalopathy: Status: Acute (4) Acute kidney insufficiency: Status: Acute (5) Physical deconditioning: Status: Acute (6) FTT (failure to thrive) in adult: Status: Acute DS: Medications Discharge Medications Home Medications: Home Medications Medication Instructions Recorded Confirmed multivitamin 1 tab PO DAILY 05/23/20 02/20/21 amlodipine 2.5 mg tablet 2.5 mg PO DAILY 08/23/20 02/20/21 escitalopram oxalate 5 mg tablet 5 mg PO DAILY 12/27/20 02/20/21 lidocaine HCl 2 % mucosal solution 15 ml PO QID PRN 12/27/20 02/20/21 (Lidocaine Viscous) clobetasol 0.05 % topical gel 1 appl TOPICAL TID 02/12/21 02/20/21 Previous Rx's Medication Instructions Recorded metoprolol succinate 25 mg 25 mg PO DAILY #90 tab 10/20/20 tablet,extended release 24 hr hydrochlorothiazide 25 mg tablet 25 mg PO QAM #30 tab 12/15/20 oxycodone 5 mg capsule 5 mg PO Q6H PRN #60 cap 01/03/21 alprazolam 0.25 mg tablet 0.25 mg PO BEDTIME PRN #30 tab 02/19/21 DS: Summary Hospital Course Hospital Course: Admission note HPI This is an 80-year-old female with past medical history of large granular lymphocytic leukemia, basal cell carcinoma, goiter, hypertension,? the ED by family as they noticed her to be more confused and generally more weak.? Patient herself is alert, oriented to self and place and time but the very poor historian, speaks very slowly, goes off topic, does not answer questions appropriately and therefore history is mostly obtained from EMR and ED physician.? According to the family they found? her? to have possibly taken? 3 days of extra medications, unclear what medications, it appears to be by mistake although patient cannot tell me much details about that.? She tells me that she currently lives in assisted living but according to the ED physician she lives alone with nursing 8 and VNA. ? Family does not believe the patient can care for herself and would like her? to also be evaluated for placement. Nausea or vomiting, no diarrhea constipation, no melena, hemoptysis, hematemesis, no urinary frequency and no lower extremity edema.? On arrival to the ED hemodynamically stable with no significant abnormal vitals Hospital Course Patient was admitted for evaluation of lethargy, metabolic encephalopathy and physical deconditioning. No infection was found but she was found in symptomatic anemia secondary to lymphocytic leukemia evaluated by Oncology team who suggested the hospice approach as no active treatment plans in place. The patient transfused 2 units of blood with good response as her hemoglobin improved back to 9. Evaluated by Physical therapy who recommended long-term care as the patient has failure to thrive from not having any appetite to eat. Found to have acute kidney injury at time of presentation which was treated with IV fluid with full response and improvement back to basal creatinine level. Time Spent with Patient Time attestation: Total time spent providing and/or coordinating discharge services: Discharge coordination time: Greater than 30 minutes Quality: Stroke Does the patient have a stroke diagnosis?: No Physical Exam Vital Signs: Vital Signs: Last Vital Signs Temp 97.2 F 02/24/21 07:38 Pulse 98 02/24/21 07:38 Resp 14 02/24/21 07:38 BP 149/57 H 02/24/21 07:38 Pulse Ox 98 02/24/21 07:38 Body Mass Index 23.3 Const: Other: Constitutional : Alert, oriented to self and place, looks weak and has no energy Neck : Normal inspection, Supple Cardiovascular : RRR, S1 S2, no lower extremity edema Respiratory : Fair bilateral air entry, no crackles, wheezes or rhonchi Gastrointestinal: soft, lax, Normal bowel sounds, Non tender Skin : Warm/Dry Neurological : Alert & oriented x2, No focal deficit, decreased power in all extremities Discharge Plan Discharge Patient Disposition: er LTC Discharge Diagnosis: Failure to thrive Physical deconditioning Referrals: [facility] [Other] - 1 Day (residential facility,under your alloted free days and sighn on to [facility] once you are there) [facility] [Other] - 1 Week ([facility] ambulance will procvide transportation from the [facility] to [facility] on [address] [facility]) [facility] [Outside] - 1 Day ([facility] -patient to be sighned on once she arrives to [facility] ) Silvina Langford MD [Primary Care Provider] - 1 Week Discharge Medications: Continued multivitamin Tablet 1 tab PO DAILY RF: 0 amlodipine 2.5 mg tablet 2.5 mg PO DAILY RF: 0 metoprolol succinate 25 mg Tablet Extended Release 24 Hr 25 mg PO DAILY Qty: 90 RF: 6 hydrochlorothiazide 25 mg Tablet 25 mg PO QAM Qty: 30 RF: 4 lidocaine HCl [Lidocaine Viscous] 2 % solution 15 ml PO QID PRN (Reason: mouth ulcers) RF: 0 escitalopram oxalate 5 mg tablet 5 mg PO DAILY RF: 0 oxycodone 5 mg Capsule 5 mg PO Q6H PRN (Reason: Pain) Qty: 60 RF: 0 alprazolam 0.25 mg Tablet 0.25 mg PO BEDTIME PRN (Reason: Insomnia) Qty: 30 RF: 0 clobetasol 0.05 % gel 1 appl topical TID RF: 0 Discontinued losartan 100 mg Tablet 100 mg PO DAILY Qty: 30 RF: 3 Discharge Orders: Discharge Order (Routine); Ordered 02/24/21 Ordered By: Gilma Gallardo Diet: advance to usual diet Activity on Discharge: As tolerated Stand Alone Forms: Patient Portal Discharge page Care Plan Goals: Read below Health Concerns: Read below Plan of Treatment: admitted with symptomatic anemia and acute kidney injury. Improved significantly after transfusion and IV fluid. Decided for hospice care after discussions. Assessment: Transferred to long-term care with the plan for hospice care.
[2021-02-24 10:46] LABS: COVID-19 Test Negative (Negative)
--- NOTE | 2021-02-24 10:57 | MHC.CM.PN ---
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 TRANSPORTATION [facility] ELECT[employer] MEDICAL RECORD AND DISCHARGE ORDERED AND SUMMARY REVIEWED ALONG WITH CASE DISUCSSED WITH THE HOSPITLIST AND STAFF NURSE Arti MET WITHNPATIENT AND TELEPHONE HER BROTHER/HCP INFORMING THEM OF THE DISCHARGE TODAY TO [facility] , [facility] CONFIRMES WITH [facility] ACCEPTANCE AND TRANSPORT TIME FOR 11 AM ALSO CONFIRMED WITH VERNELL AT THE NA SHE HAS SPOKEN WITH THE HOSPICE NURSE AND WILL ALSO CONFIRM TIME WITH HER . DISCHARGE PLAN [facility]
[2021-02-24 17:12] LABS: Cyclosporine 72 mcg/L (100-300)
== END 2021-02-24 11:16 | DRG 840 ==
LOC: HO.ED 20:09 → HO.EDOVER 22:40 → HO.S3 02-21 08:03
PROVIDERS: Internal Medicine; Admitting Provider Internal Medicine; Emergency Provider Emergency Medicine; PCP Family Medicine; Visit Provider Student in an Organized Health Care Education/Training Program
DX: C91.90 Lymphoid leukemia, unspecified not having achieved remission (principal); G93.41 Metabolic encephalopathy; N17.9 Acute kidney failure, unspecified; R54 Age-related physical debility; D63.0 Anemia in neoplastic disease; R62.7 Adult failure to thrive; Z68.23 Body mass index [BMI] 23.0-23.9, adult; Z20.822 Contact with and (suspected) exposure to COVID-19; Z88.2 Allergy status to sulfonamides; Z79.899 Other long term (current) drug therapy
CPT/HCPCS: 36415; 70450; 71045; 80048; 80076; 80158; 81003; 82272; 82746; 83690; 85025; 85027; 86850; 86900; 86901; 86923; 87635; 97162; 99285; P9016